=== PATIENT | female | born 1945 | race Caucasian/White ===

== ENCOUNTER → 2023-08-23 | Outpatient (CLI) | payer MEDICARE, OTHER, SELFPAY ==
[2023-08-23 12:21] LABS: Absolute Lymphocyte Count 1.39 X10^3/uL (0.83-4.51); Absolute Neutrophil Count 2.4 X10^3/uL (2.0-7.7); Basophil# 0.03 X10^3/uL; Basophil% 0.7 % (0-1); Eosinophils% 4.6 % (0-5); Hematocrit 35.5 % (37-47); Hemoglobin 11.7 g/dL (12.0-15.0); Lymphocyte # 1.39 X10^3/ul (0.83-4.51); Lymphocyte % 31.9 % (19-41); Mean Corpuscular Hgb 29.5 pg (27.0-32.0); Mean Corpuscular Volume 89.6 fL (81-99); Mean Platelet Vol. 10.3 fl (6.2-12.0); Monocyte% 6.9 % (0-10); NRBC Flagged by Analyzer 0 % (0-5); Neutrophil # 2.43 X10^3/uL (2.7-7.7); Neutrophil % 55.7 % (47-70); Platelet Count 215 K/mm3 (150-450); RBC Distribution Width CV 12.8 % (11.6-14.6); RBC Distribution Width SD 42.3 fl (35.1-43.9); Red Blood Count 3.96 M/mm3 (4.2-5.4); White Blood Count 4.4 K/mm3 (4.4-11.0)
[2023-08-23 12:56] LABS: Vitamin D,25 Hydroxy 28.3 ng/mL
[2023-08-23 13:08] LABS: ALB/GLOB Ratio 1.1 RATIO (0.9-2.4); AST(SGOT) 14 U/L (15-37); Alanine Aminotransfer ALT/SGPT 16 U/L (13-56); Albumin, Serum 3.7 g/dL (3.2-5.0); Alkaline Phosphatase 78 U/L (45-117); Anion Gap 9 (5-15); BUN 34 mg/dL (7-18); BUN/Creat Ratio 30.1 RATIO (10-20); Calcium,Total 9.4 mg/dL (8.5-10.1); Chloride 105 mmol/L (98-107); Cholesterol 194 mg/dL (200); Creatinine, Serum 1.13 mg/dL (0.55-1.02); EST Glomerular Filtration Rate 50 mL/min (>60); Est Glom Filt Rate - Afr Amer 60 mL/min (>60); Globulin 3.5 g/dL (2.2-4.2); Glucose 121 mg/dL (74-106); High Density Lipoprotein 77 mg/dL; Potassium 3.6 mmol/L (3.5-5.1); Protein, Total 7.2 g/dL (6.4-8.2); Sodium Level 139 mmol/L (136-145); T4 Free Direct 0.96 ng/dL (0.76-1.46); Thyroid Stim Hormone (TSH) 2.98 uIU/mL (0.358-3.74); Triglycerides 101 mg/dL; Very Low Density Lipoprotein 20 mg/dL (5-40)
== END | disposition home or self-care (01) ==
LOC: MFPLAB 10:46
PROVIDERS: Visit Provider Family Medicine
DX: I10 Essential (primary) hypertension (principal); E03.9 Hypothyroidism, unspecified; R73.03 Prediabetes; F41.1 Generalized anxiety disorder
CPT/HCPCS: 36415; 80053; 80061; 82306; 83036; 84439; 84443; 85025

== ENCOUNTER → 2023-12-20 | Outpatient (CLI) | payer MEDICARE, OTHER, SELFPAY ==
[2023-12-20 11:27] LABS: Vitamin D,25 Hydroxy 31.2 ng/mL
[2023-12-20 12:25] LABS: Hemoglobin A1c 6.2 % (3.8-5.6)
== END | disposition home or self-care (01) ==
LOC: MFPLAB 08:39
PROVIDERS: PCP Family Medicine; Visit Provider Family Medicine
DX: E03.9 Hypothyroidism, unspecified (principal); E55.9 Vitamin D deficiency, unspecified; R73.03 Prediabetes
CPT/HCPCS: 36415; 82306; 83036; 84443

== ENCOUNTER → 2023-12-27 | Outpatient (CLI) | payer MEDICARE, OTHER, SELFPAY ==
--- NOTE | 2023-12-27 12:56 | US_ITS ---
INDICATION: NODULE EXAMINATION: Ultrasound US Thyroid (eg thyroid, parathyroid, parotid) TECHNIQUE: Chandler scale and color doppler imaging was performed of the thyroid gland. TIRADS criteria was utilized. COMPARISON: None. FINDINGS: RIGHT THYROID LOBE: Status post right hemithyroidectomy. LEFT THYROID LOBE: 4.1 x 1.3 x 1.9 cm with a volume of 5.2 mL Homogeneous echotexture. Normal vascularity. 3 mm nodule which is solid, hypoechoic, wider than tall with smooth margins and no echogenic foci. ISTHMUS: 3 mm Homogeneous echotexture. Normal vascularity. No thyroid nodules. US/Thyroid IMPRESSION: 3 mm TIRADS 4 nodule in the left lobe with no follow-up recommended. Electronically Signed: Bryant York DO at 23:29 EDT ,
== END | disposition home or self-care (01) ==
LOC: US 12:53
PROVIDERS: PCP Family Medicine; Referring Provider Family Medicine; Visit Provider Family Medicine
DX: E04.1 Nontoxic single thyroid nodule (principal)
CPT/HCPCS: 76536

== ENCOUNTER → 2024-03-30 | Outpatient (CLI) | payer MEDICARE, OTHER, SELFPAY ==
[2024-03-30 16:21] LABS: Vitamin D,25 Hydroxy 42.9 ng/mL
== END | disposition home or self-care (01) ==
LOC: MFPLAB 11:28
PROVIDERS: PCP Family Medicine; Referring Provider Family Medicine; Visit Provider Family Medicine
DX: E55.9 Vitamin D deficiency, unspecified (principal); R73.03 Prediabetes; E03.9 Hypothyroidism, unspecified
CPT/HCPCS: 36415; 82306; 83036; 84443

== ENCOUNTER → 2024-04-13 | Outpatient (CLI) | payer MEDICARE, OTHER, SELFPAY ==
--- NOTE | 2024-04-13 12:47 | BI_ITS ---
PROCEDURE: SCRN MAMM (CAD)W/ROBBIN BILAT REASON FOR EXAM: F, Age 78 y/o, personal history of breast cancer. Prior right breast lumpectomy and post radiation. Prior left breast biopsies. TECHNIQUE: Bilateral screening digital breast tomosynthesis with 2D and 3D images. Computer aided detection. COMPARISON: Prior exam(s) dating back to outside examination dated April 11, 2023.. FINDINGS: The breasts are heterogeneously dense which may obscure small masses. Stable focal area of architectural distortion in the upper central portion of the right breast in keeping with prior right lumpectomy and radiation. No suspicious masses, areas of developing architectural distortion, or suspicious calcifications. Stable examination. BI/SCRN MAMM (CAD)W/ROBBIN BILAT IMPRESSION: BI-RADS 2: BENIGN. RECOMMEND ANNUAL MAMMOGRAPHIC SCREENING. Follow-up code: Routine Follow-up The patient will be notified of the results by letter. Reading Location: [place] [id number]
== END | disposition home or self-care (01) ==
LOC: OPBI 12:46
PROVIDERS: PCP Family Medicine; Referring Provider Family Medicine; Visit Provider Family Medicine
DX: Z12.31 Encounter for screening mammogram for malignant neoplasm of breast (principal)
CPT/HCPCS: 77063; 77067

== ENCOUNTER → 2024-09-02 | Outpatient (CLI) | payer MEDICARE, OTHER, SELFPAY ==
--- NOTE | 2024-09-02 13:25 | RAD_ITS ---
PROCEDURE: FINGER(S) MIN 2 VIEWS 09/02/2024 REASON FOR EXAM: FINGER INJURY TECHNIQUE: 3 view(s) of the right 2nd finger COMPARISON: None. RAD/Finger(s) Min 2 Views IMPRESSION: No radiopaque foreign body is seen. A distal tuft fracture, minimally displaced, is seen in the right 2nd distal ph alanx. Moderate degenerative changes of the right 2nd proximal interphalangeal joint, and mild degenerative changes of the right 2nd distal interphalangeal joint is noted. Reading Location: [address]
== END | disposition home or self-care (01) ==
LOC: MTRAD 13:25
PROVIDERS: PCP Family Medicine; Referring Provider Physician Assistant; Visit Provider Physician Assistant
DX: S69.91XA Unspecified injury of right wrist, hand and finger(s), initial encounter (principal); X58.XXXA Exposure to other specified factors, initial encounter
CPT/HCPCS: 73140

== ENCOUNTER → 2024-09-17 | Outpatient (CLI) | payer MEDICARE, OTHER, SELFPAY ==
[2024-09-17 15:25] LABS: Absolute Lymphocyte Count 1.35 X10^3/uL (0.83-4.51); Absolute Neutrophil Count 2.5 X10^3/uL (2.0-7.7); Basophil# 0.03 X10^3/uL; Basophil% 0.7 % (0-1); Eosinophil# 0.09 X10^3/uL; Eosinophils% 2.1 % (0-5); Hematocrit 35.4 % (37-47); Hemoglobin 11.8 g/dL (12.0-15.0); Lymphocyte # 1.35 X10^3/ul (0.83-4.51); Lymphocyte % 31.5 % (19-41); Mean Corp Hgb Conc 33.3 g/dL (32-36); Mean Corpuscular Hgb 30.3 pg (27.0-32.0); Mean Platelet Vol. 11.1 fl (6.2-12.0); Monocyte# 0.29 X10^3/uL; Monocyte% 6.8 % (0-10); NRBC Flagged by Analyzer 0 % (0-5); Neutrophil # 2.51 X10^3/uL (2.7-7.7); Neutrophil % 58.7 % (47-70); Platelet Count 200 K/mm3 (150-450); RBC Distribution Width CV 12.1 % (11.6-14.6); RBC Distribution Width SD 40.1 fl (35.1-43.9); Red Blood Count 3.89 M/mm3 (4.2-5.4); White Blood Count 4.3 K/mm3 (4.4-11.0)
[2024-09-17 15:50] LABS: Hemoglobin A1c 5.3 % (<=5.6)
[2024-09-17 16:12] LABS: ALB/GLOB Ratio 1.8 RATIO (0.9-2.4); AST(SGOT) 22 U/L (<=31); Alanine Aminotransfer ALT/SGPT 14 U/L (<=34); Albumin, Serum 4.3 g/dL (3.4-4.8); Alkaline Phosphatase 68 U/L (35-104); Anion Gap 13 (5-15); BUN 33 mg/dL (4-19); BUN/Creat Ratio 28.7 RATIO (10-20); Calcium,Total 9.9 mg/dL (7.6-11.0); Carbon Dioxide 23.4 mmol/L (21.0-32.0); Chloride 105 mmol/L (98-108); Cholesterol 161 mg/dL (<=200); Creatinine, Serum 1.14 mg/dL (0.70-1.20); EST Glomerular Filtration Rate 49 (>60); Globulin 2.4 g/dL (2.2-4.2); Glucose 88 mg/dL (70-99); High Density Lipoprotein 69 mg/dL; Low Density Lipoprotein Calc. 74 mg/dL; Potassium 3.9 mmol/L (3.3-5.1); Protein, Total 6.7 g/dL (5.9-8.4); Sodium Level 141 mmol/L (133-145); Thyroid Stim Hormone (TSH) 0.431 uIU/mL (0.300-4.200); Total Bilirubin 0.55 mg/dL (0.00-1.30); Triglycerides 86 mg/dL; Very Low Density Lipoprotein 17 mg/dL (5-40); Vitamin D,25 Hydroxy 71.9 ng/mL (30-100); cholesterol:hdl ratio screen 2.32
--- OUTSIDE RECORDS SUMMARY | 2024-09-17 21:31 | XMS RPT_ITS | CCD ---
Author Organization [facility] Care Team Providers Care Tap Dancer Name Role Phone Tio Perez MD Primary Care Provider CHRIS, TIO RADHA Primary Care Unavailable ANG ADAMES A Attending Unavailable ANG ADAMES Admitting Unavailable MIKULA, TIO P Primary Care Unavailable POZUELO, JUSTIN M Referring Unavailable MIKULA, TIO P Primary Care Unavailable MIKULA, TIO P Referring Unavailable POZUELO, JUSTIN M Attending Unavailable POZUELO, JUSTIN M Referring Unavailable MIKULA, TIO P Primary Care Unavailable MIKULA, TIO P Primary Care Unavailable POZUELO, JUSTIN M Attending Unavailable POZUELO, JUSTIN M Referring Unavailable MIKULA, TIO P Primary Care Unavailable POZUELO, JUSTIN M Referring Unavailable POZUELO, JUSTIN M Referring Unavailable MIKULA, TIO P Primary Care Unavailable POZUELO, JUSTIN M Attending Unavailable MIKULA, TIO P Primary Care Unavailable POZUELO, JUSTIN M Referring Unavailable MIKULA, TIO P Primary Care Unavailable POZUELO, JUSTIN M Referring Unavailable MIKULA, TIO P Primary Care Unavailable MIKULA, TIO P Primary Care Unavailable POZUELO, JUSTIN M Referring Unavailable Broula Tio WHITTAKER Primary Care Provider Marcos Garcia MD Primary Care Provider Marcos Garcia MD Referring Provider Rosas Reed Attending Provider Rosas Reed Referring Provider [phone] Melody Stewart Attending Provider [phone] Nick WHITTAKER, Dr. Anderson Attending Provider [phone] Jose, Chalon Primary Care Unavailable Melody Loya Attending Unavailable Jose, Chalon Referring Unavailable Justin Romero Attending Unavailable Jose, Chalon Primary Care Unavailable Jose, Chalon Referring Unavailable Jose, Chalon Primary Care Unavailable Melody Loya Attending Unavailable Jose, Chalon Referring Unavailable WyRosas Kowalski Attending Unavailable Jose, Chalon Primary Care Unavailable Jose, Chalon Referring Unavailable Jose, Chalon Primary Care Unavailable Jose, Chalon Attending Unavailable Jose, Chalon Referring Unavailable Jose, Chalon Primary Care Unavailable Jose, Chalon Attending Unavailable Rosas Reed Attending Unavailable Rosas Reed Referring Unavailable Jose, Chalon Primary Care Unavailable Jose, Chalon Primary Care Unavailable Jose, Chalon Attending Unavailable Jose, Chalon Attending Unavailable Jose, Chalon Referring Unavailable Jose, Chalon Primary Care Unavailable Allergies Allergy Classification Reported Allergen(s) Allergy Type Date of Onset Reaction(s) Facility (10 sources) Morphine; Translations: [MORPHINE] Drug Allergy 9 Swelling, Hives [facility] (4 sources) oxyCODONE; Translations: [OXYCODONE] Drug Allergy 0 Other: See Comments [facility] Work Phone: (2 sources) Penicillins; Translations: [PENICILLINS] Propensity to adverse reactions 9 [facility] Work Phone: (4 sources) Propoxyphene; Translations: [PROPOXYPHENE] Drug Allergy 9 [facility] Work Phone: (6 sources) Amoxicillin Drug Allergy 9 [facility] (2 sources) Penicillins Propensity to adverse reactions 9 [facility] Work Phone: (1 source) Amoxicillin Drug Allergy 5 [facility] (1 source) Morphine Drug Allergy 5 [facility] Medications Current Medications Medication Drug Class(es) Dates Sig (Normalized) Sig (Original) aspirin 81 mg oral tablet (1 source) Platelet Aggregation Inhibitor, Nonsteroidal Anti-inflammatory Drug take 2 tablets by mouth once daily in the morning aspirin 81 MG tablet Indications: 2 tablets daily Take 81 mg by mouth in the morning. Indications: 2 tablets daily. Told not to stop. 0 Active cephalexin 500 mg oral capsule (3 sources) Cephalosporin Antibacterial Start: 5 take 1 capsule by mouth three times daily Cephalexin 500 mg capsule Active 500 mg PO THREE TIMES A DAY September 03, 2024 12:00am ergocalciferol 1.25 mg oral capsule (5 sources) Provitamin D2 Compound Start: Ergocalciferol (Vitamin D2) 1,250 mcg (50,000 unit) capsule Active 1250 ug PO EVERY WEEK September 02, 2024 12:00am hydroCHLOROthiazide 12.5 mg / lisinopril 20 mg oral tablet (9 sources) Thiazide Diuretic, Angiotensin Converting Enzyme Inhibitor Start: Lisinopril-Hydroch lorothiazide 20-12.5 mg tablet Active 2 {tbl} PO daily September 02, 2024 12:00am take 2 tablets by mo uth once daily lisinopril-hydrochlorothiazide (PRINZIDE ,ZESTORETIC) 20-12.5 mg per tablet Take 2 tablets by mouth once daily. 0 Active Comment on above: Take 2 tablets by mo uth once daily. levothyroxine sodium 0.088 mg oral tablet (9 sources) l-Thyroxine Start: 5 take 1 tablet by mouth once daily Levothyroxine 88 mcg tablet Active 88 ug PO daily September 02, 2024 12:00am take 1 capsule by mouth once tate ly Levothyroxine 75 mcg cap Take 75 mcg by mouth once daily. 0 Active take 1 tablet by mouth once malena y levothyroxine (SYNTHROID) 75 MCG tablet Take 75 mcg by mouth Daily 0 Active Comment on above: Take 75 mcg by mouth once daily. meloxicam 7.5 mg oral tablet (5 sources) Nonsteroidal Anti-inflammatory Drug Start: 5 take 1 tablet by mouth once daily as needed for pain Meloxicam 7.5 mg tablet Active 7.5 mg PO daily as needed for pain September 02, 2024 12:00am Multivitamin tablet (4 sources) Start: 5 Multivitamin tablet Active 1 {tbl} PO EVERY MORNING September 03, 2024 12:00am rosuvastatin calcium 5 mg oral tablet (5 sources) HMG-CoA Reductase Inhibitor Start: 5 take 1 tablet by mouth once daily Rosuvastatin 5 mg tablet Active 5 mg PO daily September 02, 2024 12:00am Semaglutide 0.5 mg/0.1 mL syringe (5 sources) Start: 5 Semaglutide 0.5 mg/0.1 mL syringe Active mg SC September 02, 2024 12:00am sertraline 100 mg oral tablet (9 sources) Serotonin Reuptake Inhibitor Start: 5 take 1 tablet by mouth once daily Sertraline 100 mg tablet Active 100 mg PO daily September 02, 2024 12:00am take 1 tablet by mouth once malena y sertraline (ZOLOFT) 100 mg tablet Take 100 mg by mouth once daily. 0 Active Comment on above: Take 100 mg by mouth once daily. 1000 ml sodium chloride 9 mg/ml injection (2 sources) Start: 10-26-2021 0.9 % sodium chloride infusion Start: 10-26-2021 sodium chlorid e flush 0.9 % injection 5-40 mL Completed/Discontinued Medications Medication Drug Class(es) Dates Sig (Normalized) Sig (Original) acetaminophen 500 mg oral tablet (3 sources) Start: 9 take 2 tablets by mouth every eight hours acetaminophen (TYLENOL) 500 mg tablet Take 2 tablets by mouth every 8 hours. Do not exceed more than 3000 mg of Tylenol per 24 hour period 180 tablet 0 12/17/2018 Active Comment on above: Take 2 tablets by mo [facility] every 8 hours. Do not exceed more than 3000 mg of Tylenol per 24 hour period ascorbic acid 500 mg oral tablet (3 sources) Vitamin C Start: 9 take 1 tablet by mouth twice daily at mealtime ascorbic acid, vitamin C, (VITAMIN C) 500 mg tablet Take 1 tablet by mouth twice daily with meals. 0 12/17/2018 Active Comment on above: Take 1 tablet by mara twice daily with meals. atorvastatin 10 mg oral tablet (4 sources) HMG-CoA Reductase Inhibitor take 1 tablet by mouth once daily in the evening atorvastatin (LIPITOR) 10 mg tablet Take 10 mg by mouth once daily. PM 0 Active Comment on above: Take 10 mg by mouth once daily. PM cholecalciferol, vitamin D3, (VITAMIN D3 ORAL) (3 sources) cholecalciferol, vitamin D3, (VITAMIN D3 ORAL) Take by mouth. 0 Active Comment on above: Take by mouth. metFORMIN hydrochloride 500 mg oral tablet (4 sources) Biguanide take 1 tablet by mouth once daily at breakfast metFORMIN (GLUCOPHAGE) 500 mg tablet Take 500 mg by mouth daily with breakfast. 0 Active Comment on above: Take 500 mg by mouth daily with breakfast. methylPREDNISolone (1 source) Corticosteroid Start: 9 End: 2 methylPREDNISolone (MEDROL, ANGELIC,) 4 MG tablet Indications: Hand sprain, left, initial encounter Take as directed. 1 kit 0 09/07/2018 10/25/2021 Discontinued (LIST CLEANUP) predniSONE (3 sources) PREDNISONE ORAL Take by mouth. tapering dose 0 Active Comment on above: Take by mouth. taper ing dose topiramate 25 mg oral tablet (5 sources) Start: 5 End: 5 take 1 tablet by mouth twice daily Topiramate 25 mg tablet Discontinued 25 mg PO TWICE A DAY September 02, 2024 12:00am September 03, 2024 9:34am Problems Active Problems Problem Classification Problem Date Documented Date Episodic/Chronic Complications of surgical procedures or medical care (3 sources) Postoperative hypothyroidism; Translations: [Postprocedural hypothyroidism] Onset: 12-10-2018 12-10-2018 Chronic Deficiency and other anemia (1 source) Anemia due to blood loss; Translations: [Iron deficiency anemia secondary to blood loss (chronic)] Chronic Diabetes mellitus without complication (3 sources) Diabetes mellitus; Translations: [Type 2 diabetes mellitus without complications] Onset: 01-29-2020 01-29-2020 Chronic Diverticulosis and diverticulitis (1 source) Diverticulitis; Translations: [Diverticulitis of intestine, part unspecified, without perforation or abscess without bleeding] Chronic Esophageal disorders (3 sources) Gastroesophageal reflux disease without esophagitis; Translations: [Gastro-esophageal reflux disease without esophagitis] Onset: 12-10-2018 12-10-2018 Chronic Essential hypertension (8 sources) Essential hypertension; Translations: [Essential (primary) hypertension] Onset: 12-10-2018 12-10-2018 Chronic Fracture of upper limb (15 sources) Displaced fracture of distal phalanx of right index finger, initial encounter for closed fracture; Translations: [Fracture of distal phalanx of right index finger] Onset: 09-03-2024 09-02-2024 Episodic Mood disorders (3 sources) Depressive disorder; Translations: [Depression] Onset: 12-10-2018 12-10-2018 Chronic Nutritional deficiencies (1 source) Vitamin D deficiency, unspecified; Translations: [Vitamin D deficiency, unspecified] Onset: 04-23-2024 Chronic Other connective tissue disease (1 source) Presence of unspecified artificial knee joint; Translations: [Artificial knee joint present, unspecified laterality] Onset: 12-14-2021 Chronic Other injuries and conditions due to external causes (1 source) Unspecified injury of right wrist, hand and finger(s), initial encounter; Translations: [Unspecified injury of right wrist, hand and finger(s), initial encounter] Onset: 09-09-2024 Episodic Other injuries and conditions due to external causes (1 source) Unspecified injury of unspecified wrist, hand and finger(s), initial encounter; Translations: [Unspecified injury of unspecified wrist, hand and finger(s), initial encounter] Onset: 09-03-2024 Episodic Other lower respiratory disease (1 source) Multiple nodules of lung; Translations: [Other nonspecific abnormal finding of lung field] Episodic Other non-traumatic joint disorders (5 sources) Pain in unspecified knee; Translations: [Knee pain] 09-02-2024 Episodic Residual codes; unclassified (1 source) Non-smoker; Translations: [Other specified health status] Episodic Superficial injury; contusion (7 sources) Subungual hematoma, hand; Translations: [Contusion of unspecified finger with damage to nail, initial encounter] Onset: 09-10-2024 09-03-2024 Episodic Thyroid disorders (2 sources) Nontoxic single thyroid nodule; Translations: [Hypothyroidism, unspecified] Onset: 01-17-2024 Chronic Unclassified (5 sources) S62.630A - Displaced fracture of distal phalanx of right index finger, initial encounter for closed fracture Viral infection (1 source) Disease caused by 2019-nCoV; Translations: [COVID-19] Episodic Viral infection (1 source) COVID-19; Translations: [COVID-19] Onset: 03-30-2021 Past or Other Problems Problem Classification Problem Date Documented Date Episodic/Chronic Cancer of breast (3 sources) History of malignant neoplasm of breast; Translations: [Personal history of malignant neoplasm of breast] Onset: 12-10-2018 12-10-2018 Episodic Nausea and vomiting (3 sources) Postoperative nausea and vomiting; Translations: [Nausea with vomiting, unspecified] Onset: 12-10-2018 12-10-2018 Episodic Other connective tissue disease (3 sources) Impingement syndrome of right shoulder region; Translations: [Impingement syndrome of right shoulder] Onset: 2019 02-08-2020 Episodic Other connective tissue disease (3 sources) Tear of right rotator cuff; Translations: [Unspecified rotator cuff tear or rupture of right shoulder, not specified as traumatic] Onset: 01-29-2020 01-29-2020 Episodic Other lower respiratory disease (1 source) Cough; Translations: [Cough] Onset: 03-30-2021 Episodic Other lower respiratory disease (1 source) Shortness of breath; Translations: [Shortness of breath] Onset: 03-30-2021 Episodic Other screening for suspected conditions (not mental disorders or infectious disease) (1 source) Encounter for screening mammogram for malignant neoplasm of breast; Translations: [Encounter for screening mammogram for malignant neoplasm of breast] Onset: 05-01-2024 Episodic Results Test Name Value Interpretation Reference Range Facility Finger(s) Min 2 Viewson 08-23 Finger(s) Min 2 Views [facility] Imaging Services [address] [place] [address] Finger(s) Min 2 Views MR#: [id number] Acct: [id number] Name: TYESHAROJELIO TIBURCIO Rep #: [id number] : 1945 F 78 From: Rukhsana busby MD PCP: Dr. Marcos Garcia MD Status: DEP AMB Study: Finger(s) Min 2 Views Date of Exam: 09/10/24 Exam# [id number] Ordering Dr: Melody Loya [employer] PROCEDURE: FINGER(S) MIN 2 VIEWS 09/10/2024 REASON FOR EXAM: FX F/U TECHNIQUE: FINGER(S) MIN 2 VIEWS COMPARISON: 09/02/2024. FINDINGS: No significant callus formation is identified at the level of the fracture line in the distal phalanx of the 2nd finger. Benign chronic calcification adjacent to the proximal interphalangeal joint, unchanged. Mild osteopenia of the visualized bones. Degenerative joint disease. No other fracture or dislocation is seen. No lytic or blastic bone lesion is noted. RAD/Finger(s) Min 2 Views IMPRESSION: No significant callus formation is identified at the level of the fracture line in the distal phalanx of the 2nd finger. Benign chronic calcification adjacent to the proximal interphalangeal joint, unchanged. Reading Location: [place] [address] CC: ALINE Loya; Dr. Marcos Garcia MD Mol[employer] Mixer: Signed Normal [facility] Orthopedic Visit Reporton Orthopedic Visit Report [facility] [address] [place] [address] OFFICE VISIT Date of Service: 09/10/24 MR#: [id number] Acct: [id number] Name: ROJELIO ARAMBULA Rep #: [id number] : 1945 Provider: ALINE weems Age/Sex: 78/F Location: [facility] Status: Signed Intake Vital Signs 09/03/24 09:32 09/10/24 10:23 Height 5 ft 1 in 5 ft 1 in Weight: 137 lb BMI 25.9 Intake Visit Reasons: RIGHT HAND Chief Complaint: right hand index finger Accompanied by: Self Is patient in pain?: No Allergies amoxicillin Allergy (Mild, Verified 09/10/24 10:27) Rash morphine Allergy (Mild, Verified 09/10/24 10:27) Rash Medications ???Medication ???Instructions ???Recorded ???Confirmed ???Type ergocalciferol (vitamin D2) 1,250 1,250 mcg PO QWEEK 09/02/2409/10 History mcg (50,000 unit) capsule levothyroxine 88 mcg tablet 88 mcg PO QDAY 09/02/24 09/10/24 H istory lisinopril 20 2 tab PO QDAY 09/02/24 09/10/24 Hi story mg-hydrochlorothiazide 12.5 mg tablet meloxicam 7.5 mg tablet 7.5 mg PO QDAY PRN pain 09/02/24 0 09/03/24 History rosuvastatin 5 mg tablet 5 mg PO QDAY 09/02/24 09/10/24 His tory semaglutide 0.5 mg/0.1 mL mg subcut 09/02/24 09/10/24 Histor y subcutaneous syringe sertraline 100 mg tablet 100 mg PO QDAY 09/02/24 09/10/24 H istory cephalexin 500 mg capsule 500 mg PO TID #15 caps 09/03/24 Rx multivitamin 1 tab PO QAM 09/03/24 09/10/24 His tory Have you fallen in the past year?: No PFSH Medical History Fracture of distal phalanx of right index finger History of right breast cancer Knee pain HTN (hypertension) Surgical History History of bilateral knee replacement History of lumpectomy of right breast History of hysterectomy History of thyroid surgery Social History Smoking Status: Never smoker alcohol intake: never substance use type: does not use HPI RIGHT HAND Details: This documentation accurately reflects the service provided and the decisions made by me, ALINE Sethi 09/10/24 1022. Part of today???s visit was documented by Edison Dowling MA, acting as scribe. ROJELIO ARAMBULA is a 78 year old F here today for a followup on her finger fracture. DOI: 09/02/24. Patient states that she thinks that her finger is doing a lot better. She states that she likes wearing the finger splint for comfort. Patient states when she moves her finger sometimes it will get tender. Agree with above. Rojelio is a pleasant 78-year-old female for follow-up right index finger fracture. Patient completed antibiotic with no issues, states much less pressure after trephination at last appointment. Patient did soak for the first few days with no concerns for infection. Patient purchased an [facility] finger splint that gives good support and fit that she wears with all activity, removes as needed for hand hygiene. Using ice and Tylenol for symptom control. Painful if she bumps it. ROS Const All systems reviewed are unremarkable except as noted in H and other (A O x 3, no apparent distress. No recent illness.) ENT Denies dizziness Card Denies chest pain, Denies dyspnea, Denies edema and Reports other (No palpitations) Resp Denies cough, Denies dyspnea and Reports other (No recent URI) GI Reports system reviewed and no additional complaints, except as documented, Denies nausea and Denies vomiting Musc Reports as per HPI and Reports arthralgias Neuro No dizziness Psych Reports system reviewed and no additional complaints, except as documented Sancho/Lymph Denies easy bleeding and Denies easy bruising Ortho Exam Right Wrist/Hand Date of injury: 09/02/24 WRIST: R index finger: Skin is pink, warm, dry and intact. There is moderate and improving bruising to the distal phalanx and subungual hematoma resolved with ecchymosis remaining under the nail. Skin is easily compressible and minimally tender; distal sensory is intact. Positive pain with palpation to the distal phalanx There is no pain over the DIP, PIP or MCP joints. Good range of motion at the MCP and PIP joint, ROM at DIP of 0 to 20 degrees with symptom aggravation. Distal cap refill brisk at 2 seconds. Supplemental Info Independent review of finger x-rays compared to initial films. Continues to be a distal phalanx fracture with no displacement, no callus formation at this time. Await radiology report. Coding Level of Care Code Off vis,est,level 3 Diagnoses Fracture of distal phalanx of right index finger S62.630A Encounter type: subsequent encounter Fracture type: closed Fracture (more content not included)... Normal [facility] Orthopedic Visit Reporton Orthopedic Visit Report [facility] [address] [place] [id number] OFFICE VISIT Date of Service: 09/03/24 MR#: [id number] Acct: [id number] Name: ROJELIO ARAMBULA Rep #: [id number] : 1945 Provider: ALINE weems Age/Sex: 78/F Location: [facility] Status: Signed Intake Vital Signs 09/02/24 13:34 09/03/24 09:32 Height 5 ft 1 in 5 ft 1 in Weight: 140 lb BMI 26.4 Intake Visit Reasons: RIGHT HAND/FIRST FINGER Chief Complaint: right index finger Accompanied by: Self Is patient in pain?: Yes Pain scale (1-10): 6 Allergies amoxicillin Allergy (Mild, Verified 09/03/24 09:33) Rash morphine Allergy (Mild, Verified 09/03/24 09:33) Rash Medications ???Medication ???Instructions ???Recorded ???Confirmed ???Type ergocalciferol (vitamin D2) 1,250 1,250 mcg PO QWEEK 09/02/2409/03 History mcg (50,000 unit) capsule levothyroxine 88 mcg tablet 88 mcg PO QDAY 09/02/24 09/03/24 H istory lisinopril 20 2 tab PO QDAY 09/02/24 09/03/24 Hi story mg-hydrochlorothiazide 12.5 mg tablet meloxicam 7.5 mg tablet 7.5 mg PO QDAY PRN pain 09/02/24 0 09/03/24 History rosuvastatin 5 mg tablet 5 mg PO QDAY 09/02/24 09/03/24 His tory semaglutide 0.5 mg/0.1 mL mg subcut 09/02/24 09/03/24 Histor y subcutaneous syringe sertraline 100 mg tablet 100 mg PO QDAY 09/02/24 09/03/24 H istory cephalexin 500 mg capsule 500 mg PO TID #15 caps 09/03/24 Rx multivitamin 1 tab PO QAM 09/03/24 09/03/24 His tory Have you fallen in the past year?: Yes PFSH Medical History Fracture of distal phalanx of right index finger History of right breast cancer Knee pain HTN (hypertension) Surgical History History of bilateral knee replacement History of lumpectomy of right breast History of hysterectomy History of thyroid surgery Social History Smoking Status: Never smoker alcohol intake: never substance use type: does not use HPI RIGHT HAND/FIRST FINGER Details: This documentation accurately reflects the service provided and the decisions made by me, ALINE Sethi 09/03/24 7383. Part of today???s visit was documented by Elizabeth Roque ATC, acting as scribe. ROJELIO ARAMBULA is a 78 year old F here today for right index finger [facility] referral. Patient states this injury happened yesterday and she was sitting in a lawn chair and got the finger stuck in it and sat on the chair with the finger stuck in the chair. Patient is RHD. She does have a finger splint on today. [facility] placed her in a splint yesterday but it kept falling off so she bought her own and has been wearing that since. She states she does have some mild numbness/tingling in the finger. She has been taking Tylenol for the pain. She denies any prior injury. Agree with above. Rojelio is a pleasant 78-year-old here for 1 day follow-up from [facility] for a distal right index finger fracture. Patient states that was trapped in a lawn chair with immediate pain and swelling. Patient has been keeping the finger immobilized with OTC brace and p.o. Tylenol for symptom control and is tolerating well. Patient states it is tight and swollen. Patient typically has on artificial nails, however she did soak off this nail so she can monitor skin and color after this injury. No prior injuries to this hand, patient is right-hand dominant. ROS Const All systems reviewed are unremarkable except as noted in H and other (A O x 3, no apparent distress. No recent illness.) ENT Denies dizziness Card Denies chest pain, Denies dyspnea, Denies edema and Reports other (No palpitations) Resp Denies cough, Denies dyspnea and Reports other (No recent URI) GI Reports system reviewed and no additional complaints, except as documented, Denies nausea and Denies vomiting Musc Reports as per HPI and Reports arthralgias Neuro No dizziness Psych Reports system reviewed and no additional complaints, except as documented Sancho/Lymph Denies easy bleeding and Denies easy bruising Ortho Exam Right Wrist/Hand Date of injury: 09/02/24 WRIST: R index finger: Skin is pink, warm, dry and intact. There is moderate bruising to the distal phalanx and approximately 70% subungual hematoma present. Skin is tight and painful with palpation. Distal sensory is intact, but blunted. There is no pain over the DIP, PIP or MCP joints. Good range of motion at the MCP and PIP joint, ROM at DIP of 0 to 20 degrees with symptom aggravation. Distal cap refill at 2 seconds. It is noted, patient has removed her artificial nail off the index finger as well as majority of adhesive. Supplemental Info (more content not included)... Normal [facility] Finger(s) Min 2 Viewson 08-23 Finger(s) Min 2 Views [facility] Imaging Services [address] [place], [place] [address] Finger(s) Min 2 Views MR#: [id number] Acct: [id number] Name: ROJELIO ARAMBULA Rep #: [id number] : 1945 F 78 From: Dennis Zamorano PCP: Dr. Marcos Garcia MD Status: REG CLI Study: Finger(s) Min 2 Views Date of Exam: 09/02/24 Exam# [id number] Ordering Dr: Rosas Pool PROCEDURE: FINGER(S) MIN 2 VIEWS 09/02/2024 REASON FOR EXAM: FINGER INJURY TECHNIQUE: 3 view(s) of the right 2nd finger COMPARISON: None. RAD/Finger(s) Min 2 Views IMPRESSION: No radiopaque foreign body is seen. A distal tuft fracture, minimally displaced, is seen in the right 2nd distal phalanx. Moderate degenerative changes of the right 2nd proximal interphalangeal joint, and mild degenerative changes of the right 2nd distal interphalangeal joint is noted. Reading Location: [address] CC: Dr. Marcos Garcia MD; RADHA Tomlinson Molasses Feed Mixer: Signed Normal [facility] Urgent Care Visit Reporton 0 09-02-2024 Urgent Care Visit Report [facility] [address], [address] [place] [address] OFFICE VISIT Date of Service: 09/02/24 MR#: [id number] Acct: [id number] Name: ROJELIO ARAMBULA Rep #: [id number] : 1945 Provider: RADHA Tomlinson Age/Sex: 78/F Location: [facility] Status: Signed Intake Vital Signs 09/02/24 13:34 Height 5 ft 1 in Weight: 136 lb BMI 25.7 BP 120/66 Blood Pressure Location Lt brachial Position Sitting Respiration 15 Pulse 84 Pulse Source NIBP Temp 98.2 F Temp Source Oral Pulse Oximetry (%) 96 Oxygen Delivery Method room air Intake Visit Reasons: R HAND/INDEX FINGER/PAIN/INJURY Chief Complaint: right index finger 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 Is patient in pain?: Yes Allergies amoxicillin Allergy (Mild, Verified 09/02/24 13:35) Rash morphine Allergy (Mild, Verified 09/02/24 13:35) Rash Medications ???Medication ???Instructions ???Recorded ???Confirmed ???Type ergocalciferol (vitamin D2) 1,250 1,250 mcg PO QWEEK 09/02/2409/02 History mcg (50,000 unit) capsule levothyroxine 88 mcg tablet 88 mcg PO QDAY 09/02/24 09/02/24 H istory lisinopril 20 2 tab PO QDAY 09/02/24 09/02/24 Hi story mg-hydrochlorothiazide 12.5 mg tablet meloxicam 7.5 mg tablet 7.5 mg PO QDAY PRN pain 09/02/24 0 09/02/24 History rosuvastatin 5 mg tablet 5 mg PO QDAY 09/02/24 09/02/24 His tory semaglutide 0.5 mg/0.1 mL mg subcut 09/02/24 09/02/24 Histor y subcutaneous syringe sertraline 100 mg tablet 100 mg PO QDAY 09/02/24 09/02/24 H istory topiramate 25 mg tablet 25 mg PO BID 09/02/24 09/02/24 His tory Is last menstrual period known: No Post menopausal: Yes Patient : No Have you fallen in the past year?: No Nurse's Note: right index finger vs folding chair today. +swelling, +bruising, +pain to same. denies additional injuries. [facility] Medical History (Updated 09/02/24 @ 13:39 by Rosas GARCIA, PA) Fracture of distal phalanx of right index finger History of right breast cancer Knee pain HTN (hypertension) Surgical History (Updated 09/02/24 @ 13:37 by Candy Benjamin) History of bilateral knee replacement History of lumpectomy of right breast History of hysterectomy History of thyroid surgery Social History (Updated 09/02/24 @ 13:37 by Candy Benjamin) Smoking Status: Never smoker alcohol intake: never substance use type: does not use HPI HPI Chief Complaint: right index finger Details: ROJELIO ARAMBULA, is a 78 F who presents to the office today for initial evaluation status post right index finger DP pain after suffering a crush injury from same from folding chair. Localized pain and ecchymosis to the volar pad appreciated with pain aggravated touch and range of motion at DIPJ, alleviated minimally with isolation. PMH NC. Vkgro-hihw-mpqeykvv. No ifbk-jjq-bqnhkio products diagnosis. No other associated symptoms and no other alleviating/aggravating factors. ROS Const Constitutional: No other (As above) Exam Const General: cooperative, healthy appearing and no acute distress Orientation: alert and awake Resp Effort Inspection: normal respiratory effort and able to speak in complete sentences Cardio Rate: regular rate Pulses: radial pulses present Skin General: no rashes or lesions noted Neuro General: patient alert and patient awake Cognition: normal cognition Speech: speech normal Extrem General: normal to inspection Psych Appearance: grossly normal Mental Status: mental status grossly normal Mood: congruent mood Affect: normal affect Speech and Movement: speech and movement normal Attitude: cooperative Coding Level of Care Code Off vis,new,level 4 Diagnoses Fracture of distal phalanx of right index finger S62.630A Assessment and Plan Assessment and Plan (1) Fracture of distal phalanx of right index finger: Status: Acute Plan: Right index finger radiographs reveal tuft fracture minimally displaced closed per my review, pending radiologist interpretation at time of patient discharge. Aluminum finger splint with Coban applied. Supportive measures as instructed today. Orthopedic referral to [facility]. Follow-up with the [facility] on an as-needed basis only. Patient states acknowledging understanding all the above. This note was generated with [employer] software. It may contain incorrect words, spelling, and punctuation that were not noted in checking the note before signing. Orders: Orders Finger(s) Min 2 Views Today S69.90XA - Unspecified injury of unspecified wrist, hand and finger(s), initial encounter Referrals Orthopedics S62.630A - Displaced fracture of distal phalanx of right index finger, initial encounter for closed fracture Clinical Quality (more content not included)... Normal [facility] SCRN MAMM (CAD)W/ROBBIN BILATo n 04-13-2024 SCRN MAMM (CAD)W/ROBBIN BILAT [facility] Imaging Services [address] [place] [address] SCRN MAMM (CAD)W/ROBBIN BILAT MR#: [id number] Acct: [id number] Name: ROJELIO ARAMBULA Rep #: [id number] : 1945 F 78 From: Rafi baca MD PCP: Dr. Marcos Garcia MD Status: [facility] Study: SCRN MAMM (CAD)W/ROBBIN BILAT Date of Exam: 03/26 Exam# [id number] Ordering Dr: Marcos Garcia MD PROCEDURE: SCRN MAMM (CAD)W/ROBBIN BILAT REASON FOR EXAM: F, Age 78 y/o, personal history of breast cancer. Prior right breast lumpectomy and post radiation. Prior left breast biopsies. TECHNIQUE: Bilateral screening digital breast tomosynthesis with 2D and 3D images. Computer aided detection. COMPARISON: Prior exam(s) dating back to outside examination dated April 11, 2023.. FINDINGS: The breasts are heterogeneously dense which may obscure small masses. Stable focal area of architectural distortion in the upper central portion of the right breast in keeping with prior right lumpectomy and radiation. No suspicious masses, areas of developing architectural distortion, or suspicious calcifications. Stable examination. BI/SCRN MAMM (CAD)W/ROBBIN BILAT IMPRESSION: BI-RADS 2: BENIGN. RECOMMEND ANNUAL MAMMOGRAPHIC SCREENING. Follow-up code: Routine Follow-up The patient will be notified of the results by letter. Reading Location: [place] [address] CC: Dr. Marcos Garcia MD Molasses Feed Mixer: Signed Normal [facility] Hemoglobin A1con 03-30-2024 HbA1c (Bld) [Mass fraction] 6.0 % High 3.8-5.6 [facility] Comment on above: Order Comment: Order Date: 03/30/24 Order Info: [id number] - A1C Result Comment: Norm al < 5.7 % Prediabetic 5.7 - 6.4 % Diabetic >or= 6.5 % Please note range changes. Performed By: #### L 501.9985, L501.9520, L506.1000 #### [facility] [address] [place], [place], [id number] Thyroid Stim Hormone (TSH)on 03-30-2024 TSH 1.250 uIU/mL Normal 0.358-3.740 [facility] Comment on above: Order Comment: Order Date: 03/30/24 Order Info: [id number] - TSH Performed By: #### L 501.9985, L501.9520, L506.1000 #### [facility] [address] [place], [place], [id number] Vitamin D,25 Hydroxyon 03-30 Vitamin D 25-OH 42.9 ng/mL Normal [facility] Comment on above: Order Comment: Order Date: 03/30/24 Order Info: [id number] - VITD25 Result Comment: Veena min D 25(OH) Status Range Deficiency <20 ng/mL (50nmol/L) Insufficiency 20 - 30 ng/mL (50 - 75 nmol/L) Sufficiency 30 - 100 ng/mL (75 - 250 nmol/L) Toxicity >100 ng/mL (>250 nmol/L) Performed By: #### L 501.9985, L501.9520, L506.1000 #### [facility] [address] [place], [place], [phone] Thyroidon 12-27-2023 Thyroid [facility] Imaging Services [address] [place], [place] [id number] Thyroid MR#: [id number] Acct: [id number] Name: ROJELIO ARAMBULA Rep #: [id number] : 1945 F 78 From: Bryant York MD PCP: Dr. Marcos Garcia MD Status: REG CLI Study: Thyroid Date of Exam: 12/27/23 Exam# [id number] Ordering Dr: Marcos Garcia MD [id number] INDICATION: NODULE EXAMINATION: Ultrasound US Thyroid (eg thyroid, parathyroid, parotid) TECHNIQUE: Chandler scale and color doppler imaging was performed of the thyroid gland. TIRADS criteria was utilized. COMPARISON: None. FINDINGS: RIGHT THYROID LOBE: Status post right hemithyroidectomy. LEFT THYROID LOBE: 4.1 x 1.3 x 1.9 cm with a volume of 5.2 mL Homogeneous echotexture. Normal vascularity. 3 mm nodule which is solid, hypoechoic, wider than tall with smooth margins and no echogenic foci. ISTHMUS: 3 mm Homogeneous echotexture. Normal vascularity. No thyroid nodules. US/Thyroid IMPRESSION: 3 mm TIRADS 4 nodule in the left lobe with no follow-up recommended. Electronically Signed: Bryant York DO at 23:29 EDT , CC: Dr. Marcos Garcia MD Molasses Feed Mixer: Signed Normal [facility] Hemoglobin A1con 12-20-2023 HbA1c (Bld) [Mass fraction] 6.2 % High 3.8-5.6 [facility] Comment on above: Result Comment: Norm al < 5.7 % Prediabetic 5.7 - 6.4 % Diabetic >or= 6.5 % Please note range changes. Performed By: #### L 501.9985, L501.9520, L506.1000 ####[facility] [address] [place], [address] Thyroid Stim Hormone (TSH)on 12-20-2023 TSH 1.870 uIU/mL Normal 0.358-3.740 [facility] Comment on above: Performed By: #### L 501.9985, L501.9520, L506.1000 ####[facility] [address] [place], [address] Vitamin D,25 Hydroxyon 12-19 Vitamin D 25-OH 31.2 ng/mL Normal [facility] Comment on above: Result Comment: Veena min D 25(OH) Status Range Deficiency <20 ng/mL (50nmol/L) Insufficiency 20 - 30 ng/mL (50 - 75 nmol/L) Sufficiency 30 - 100 ng/mL (75 - 250 nmol/L) Toxicity >100 ng/mL (>250 nmol/L) Performed By: #### L 501.9985, L501.9520, L506.1000 ####[facility] [address] [place], [address] NM BONE WHOLE BODYon 022 [facility] CBC W Auto Differential pane l (Bld)on 12-14-2021 Basophils (Bld) [#/Vol] 0.05 10*3/uL Normal <0.11 [facility] Comment on above: Order Comment: Speci men Type: BLOOD SPECIMEN Ordering Facility: [facility] Address: [address] [place] [address] Performed By: #### 5 7021-8 #### [facility] CLIA [id number] [address] [place] [address] [place] Basophils/100 WBC (Bld) 0.9 % Normal [facility] Comment on above: Order Comment: Speci men Type: BLOOD SPECIMEN Ordering Facility: [facility] Address: [address] [place] [address] Performed By: #### 5 7021-8 #### [facility] CLIA [id number] [address] [place] [address] [place] Differential cell count method Nom (Bld) Auto Normal [facility] Comment on above: Order Comment: Speci men Type: BLOOD SPECIMEN Ordering Facility: [facility]. Address: [address] [place] [address] Performed By: #### 5 7021-8 #### [facility] CLIA [id number] [address] [place] [address] [place] Eosinophils (Bld) [#/Vol] 0.33 10*3/uL Normal <0.46 [facility] Comment on above: Order Comment: Speci men Type: BLOOD SPECIMEN Ordering Facility: [facility]. Address: [address] [place] [address] Performed By: #### 5 7021-8 #### [facility] CLIA [id number] [address] [place] [address] [place] Eosinophils/100 WBC (Bld) 6.3 % Normal [facility] Comment on above: Order Comment: Speci men Type: BLOOD SPECIMEN Ordering Facility: [facility] Address: [address] [place] [address] Performed By: #### 5 7021-8 #### [facility] CLIA [id number] [address] [place] [address] [place] Erythrocyte distribution width (RBC) [Ratio] 12.2 % Normal 11.5-15.0 [facility] Comment on above: Order Comment: Speci men Type: BLOOD SPECIMEN Ordering Facility: [facility] Address: [address] [place] [address] Performed By: #### 5 7021-8 #### [facility] CLIA [id number] [address] [place] [address] [place] Hematocrit (Bld) [Volume fraction] 36.4 % Normal 36.0-46.0 [facility] Comment on above: Order Comment: Speci men Type: BLOOD SPECIMEN Ordering Facility: [facility] Address: [address] [place] [address] Performed By: #### 5 7021-8 #### [facility] CLIA [id number] [address] [place] [address] [place] Hemoglobin (Bld) [Mass/Vol] 12.0 g/dL Normal 11.5-15.5 [facility] Comment on above: Order Comment: Speci men Type: BLOOD SPECIMEN Ordering Facility: [facility] Address: [address] [place] [address] Performed By: #### 5 7021-8 #### [facility] CLIA [id number] [address] [place] [address] [place] IMMATURE GRAN % 0.4 % Normal [facility] Comment on above: Order Comment: Speci men Type: BLOOD SPECIMEN Ordering Facility: [facility] Address: [address] [place] [address] Performed By: #### 5 7021-8 #### [facility] CLIA [id number] [address] [place] [address] [place] IMMATURE GRAN ABS <0.03 Normal <0.10 [facility] Comment on above: Order Comment: Speci men Type: BLOOD SPECIMEN Ordering Facility: [facility] Address: [address] [place] [address] Performed By: #### 5 7021-8 #### [facility] CLIA [id number] [address] [place] [address] [place] Lymphocytes (Bld) [#/Vol] 1.44 10*3/uL Normal 1.00-4.00 [facility] Comment on above: Order Comment: Speci men Type: BLOOD SPECIMEN Ordering Facility: [facility] Address: [address] [place] [address] Performed By: #### 5 7021-8 #### [facility] IA [id number] [address] [place] [address] [place] Lymphocytes/100 WBC (Bld) 27.3 % Normal [facility] Comment on above: Order Comment: Speci men Type: BLOOD SPECIMEN Ordering Facility: [facility] Address: [address] [place] [address] Performed By: #### 5 7021-8 #### [facility] [place] [id number] [address] [place] [address] [place] MCH (RBC) [Entitic mass] 29.6 pg Normal 26.0-34.0 [facility] Comment on above: Order Comment: Speci men Type: BLOOD SPECIMEN Ordering Facility: [facility] Address: [address] [place] [address] Performed By: #### 5 7021-8 #### [facility] IA [id number] [address] [place] [address] [place] MCHC (RBC) [Mass/Vol] 33.0 g/dL Normal 30.5-36.0 [facility] Comment on above: Order Comment: Speci men Type: BLOOD SPECIMEN Ordering Facility: [facility] Address: [address] [place] [address] Performed By: #### 5 7021-8 #### [facility] CLIA [id number] [address] [place] [address] [place] MCV (RBC) [Entitic vol] 89.9 fL Normal 80.0-100.0 [facility] Comment on above: Order Comment: Speci men Type: BLOOD SPECIMEN Ordering Facility: [facility] Address: [address] [place] [address] Performed By: #### 5 7021-8 #### [facility] CLIA [id number] [address] [address] [place] Monocytes (Bld) [#/Vol] 0.42 10*3/uL Normal <0.87 [facility] Comment on above: Order Comment: Speci men Type: BLOOD SPECIMEN Ordering Facility: [facility] Address: [address] [place] [address] Performed By: #### 5 7021-8 #### [facility] CLIA [id number] [address] [place] [address] [place] Monocytes/100 WBC (Bld) 8.0 % Normal [facility] Comment on above: Order Comment: Speci men Type: BLOOD SPECIMEN Ordering Facility: [facility] Address: [address] [place] [address] Performed By: #### 5 7021-8 #### [facility] CLIA [id number] [address] [place] [address] [place] Neutrophils (Bld) [#/Vol] 3.01 10*3/uL Normal 1.45-7.50 [facility] Comment on above: Order Comment: Speci men Type: BLOOD SPECIMEN Ordering Facility: [facility] Address: [address] [place] [address] Performed By: #### 5 7021-8 #### [facility] CLIA [id number] [address] [place] [address] [place] Neutrophils/100 WBC (Bld) 57.1 % Normal [facility] Comment on above: Order Comment: Speci men Type: BLOOD SPECIMEN Ordering Facility: [facility] Address: [address] [place] [address] Performed By: #### 5 7021-8 #### [facility] CLIA [id number] [address] [id number] [address] [place] Nucleated RBC (Bld) [#/Vol] 10*3/uL Normal <0.01 [facility] Comment on above: Order Comment: Speci men Type: BLOOD SPECIMEN Ordering Facility: [facility] Address: [address] [place] [address] Performed By: #### 5 7021-8 #### [facility] CLIA [id number] [address] [place] [address] [place] Nucleated RBC/100 WBC (Bld) [Ratio] 0.0 /100 WBC Normal [facility] Comment on above: Order Comment: Speci men Type: BLOOD SPECIMEN Ordering Facility: [facility] Address: [address] [place] [address] Performed By: #### 5 7021-8 #### [facility] CLIA [id number] [address] [place] [address] [place] Platelet mean volume (Bld) [Entitic vol] 10.3 fL Normal 9.0-12.7 [facility] Comment on above: Order Comment: Speci men Type: BLOOD SPECIMEN Ordering Facility: [facility] Address: [address] [place] [address] Performed By: #### 5 7021-8 #### [facility] CLIA [id number] [address] [place] [address] [place] Platelets (Bld) [#/Vol] 231 10*3/uL Normal 150-400 [facility] Comment on above: Order Comment: Speci men Type: BLOOD SPECIMEN Ordering Facility: [facility] Address: [address] [place] [address] Performed By: #### 5 7021-8 #### [facility] CLIA [id number] [address] [place] [address] [place] RBC (Bld) [#/Vol] 4.05 10*6/uL Normal 3.90-5.20 [facility] Comment on above: Order Comment: Speci men Type: BLOOD SPECIMEN Ordering Facility: [facility] Address: [address] [place] [address] Performed By: #### 5 7021-8 #### [facility] CLIA [id number] [address] [place] [address] [place] WBC (Bld) [#/Vol] 5.27 10*3/uL Normal 3.70-11.00 [facility] Comment on above: Order Comment: Speci men Type: BLOOD SPECIMEN Ordering Facility: [facility] Address: [address] [place] [address] Performed By: #### 5 7021-8 #### [facility] CLIA [id number] [address] [place] [address] [place] CRP SerPl-mCncon 12-14-2021 CRP [Mass/Vol] mg/L Normal <0.9 [facility] Comment on above: Order Comment: Speci men Type: BLOOD SPECIMEN Ordering Facility: [facility] Address: [address] [place] [address] Performed By: #### 1 988-5 #### [facility] CLIA [id number] [address] [place] [address] [place] ESR Westergren method (Bld) [Velocity]on 12-14-2021 ESR (Bld) [Velocity] 20 mm/h Normal 0-20 [facility] Comment on above: Order Comment: Speci men Type: BLOOD SPECIMEN Ordering Facility: [facility] Address: [address] [place] [address] Performed By: #### 4 537-7 #### [facility] CLIA [id number] [address] [place] [address] [place] CBCon 10-26-2021 Hematocrit (Bld) [Volume fraction] 39.6 % 34 - 48 % [facility] Hemoglobin (Bld) [Mass/Vol] 13.2 g/dL 11.5 - 15.5 g/dL [facility] MCH (RBC) [Entitic mass] 30.4 pg 26 - 35 pg [facility] MCHC (RBC) [Mass/Vol] 33.3 % 32 - 34.5 % [facility] MCV (RBC) [Entitic vol] 91.2 fL 80 - 99.9 fL [facility] Platelet distribution width (Bld) [Ratio] 12.1 fL 11.5 - 15 fL [facility] Platelet mean volume (Bld) [Entitic vol] 9.9 fL 7 - 12 fL [facility] Platelets (Bld) [#/Vol] 257 10*3/uL [facility] RBC (Bld) [#/Vol] 4.34 10*6/uL [facility] WBC (Bld) [#/Vol] 4.9 10*3/uL [facility] CBC With Platelet No Differe ntialon 10-26-2021 Hematocrit (Bld) [Volume fraction] 39.6 % Normal 34.0-48.0 [facility] Hemoglobin (Bld) [Mass/Vol] 13.2 g/dL Normal 11.5-15.5 [facility] MCH (RBC) [Entitic mass] 30.4 pg Normal 26.0-35.0 [facility] MCHC 33.3 % Normal 32.0-34.5 [facility] MCV (RBC) [Entitic vol] 91.2 fL Normal 80.0-99.9 [facility] Platelet Count 257 E9/L Normal 130-450 [facility] Platelet mean volume (Bld) [Entitic vol] 9.9 fL Normal 7.0-12.0 [facility] RBC 4.34 E12/L Normal 3.50-5.50 [facility] RDW 12.1 fL Normal 11.5-15.0 [facility] WBC 4.9 E9/L Normal 4.5-11.5 [facility] METER GLUCOSEon 10-26-2021 Glucose [Mass/Vol] 113 mg/dL High 74-99 [facility] POCT Glucoseon 10-26-2021 Glucose [Mass/Vol] 113 mg/dL High 74 - 99 mg/dL [facility] Interpretation and review of laboratory results Abnormal [facility] Surgical Specimenon 10-27-19 22 Surgical Specimen [facility] [address] [facility] [address] [place] [address] FINAL SURGICAL PATHOLOGY REPORT NAME: ROJELIO ARAMBULA Date of 10/26/2021 Collection: Medical Record [id number] Date of 10/26/2021 Number: Receipt: Age: 76 Y Sex: F Date 10/31/2021 10:20 Reported: Date Of : 1945 Financial [id number] Admitting ANG ADAMES Number: Physician: Patient DIS ENDOPLNON Ordering ANG ADAMES Location: Physician: Accession Number: [id number] Additional Physicians:TIO PEREZ Diagnosis: A. Stomach: Mild chronic gastritis without intestinal metaplasia. B. Duodenum: No significant histopathologic abnormality. C. Distal esophagus: Squamous and glandular mucosa with mild chronic inflammation. Negative for intestinal metaplasia or dysplasia. CHANA CORLEY M.D. (Electronic Signature) Specimen Submitted: A. STOMACH BIOPSY, WITH HELICOBACTER IPX, ULCER B. DUODENUM BIOPSY C. ESOPHAGUS, BIOPSY, DISTAL Clinical Notes: Operative procedure: Colonoscopy, EGD Preoperative Dx: Diverticulitis, anemia, blood loss Microscopic Evaluation: Was performed. Gross Description: Submitted in three parts in formalin. A. Labeled Rojelio Arambula, biopsy healing gastric ulcer consists of a hidalgo soft fragment of tissue that measures 0.3 x 0.2 x 0.2 cm. Entirely submitted. Block label A1. B. Labeled Rojelio Arambula, biopsy duodenum consists of two hidalgo soft fragments of tissue, each measuring 0.2 x 0.2 x 0.2 cm. Entirely submitted. Block label B1. C. Labeled Rojelio Zaratebb, biopsy distal esophagus consists of a white-pink soft fragment of tissue that measures 0.4 x 0.2 x 0.2 cm. Entirely submitted. Block label C1. ([facility]) CODES: 11212v4; Department of Pathology Page 1 of 1 Normal [facility] CNOVon 08-28-2021 CNOV Office Visit (PULI ) -------- ROJELIO ARAMBULA ([id number]) 1945 F Date Time Provider Department 08/28/21 1:20 PM JUSTIN CHEATHAMIzzy During your visit today, we recorded the following information about you: Pulse Respiration Blood pressure 77/minute 20/minute 135/66 Liudmila Cheatham MD 08/28/2021 1:46 PM Signed [facility] [place] Subjective Rojelio Arambula is a 75 year old female seen s/p covid And has been doing well Had pft and is to have a follow up ct of chest from 04/15 that was improved. She has no cough not sob , exercising and desat study was good no oxygen needed. She also had pft done She is gardening and does well Had poisen fatemeh and on rx. No cp feels well , her hair loss from covid recovered. 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 - Vertigo PAST SURGICAL HISTORY Procedure Laterality Date - COLONOSCOPY - PAST SURGICAL HISTORY OF 2011 right breast lumpectomy - PAST SURGICAL HISTORY OF 2004 right bunionectomy - PAST SURGICAL HISTORY OF bowel resction 1971-endometriosis - PAST SURGICAL HISTORY OF 2005 lithotripsy - PAST SURGICAL HISTORY OF partial thyroidectomy (right) - PAST SURGICAL HISTORY OF right knee replacement, left knee replacement - PAST SURGICAL HISTORY OF Right 09/2019 shoulder impingment surgery - TOTAL ABDOM HYSTERECTOMY 1972 FAMILY HISTORY Problem Relation Age of Onset - other (heart disease) Father - Diabetes Son - Cancer Mother lung and bone Social History Tobacco Use - Smoking status: Never Smoker - Smokeless tobacco: Never Used Substance Use Topics - Alcohol use: Yes - Drug use: No ALLERGIES Allergen Reactions - Morphine Swelling Rash, edema - Oxycodone Other: See Comments N/V, headache - Penicillins Rash - Propoxyphene nausea Current Outpatient Medications on File Prior to Visit Medication Sig - lisinopril-hydrochloroth iazide (PRINZIDE,ZESTORETIC) 20-12.5 mg per tablet Take 2 tablets by mouth once daily. - cholecalciferol, vitamin D3, (VITAMIN D3 ORAL) Take by mouth. - atorvastatin (LIPITOR) 10 mg tablet Take 10 mg by mouth once daily. PM - metFORMIN (GLUCOPHAGE) 500 mg tablet Take 500 mg by mouth daily with breakfast. - acetaminophen (TYLENOL) 500 mg tablet Take 2 tablets by mouth every 8 hours. Do not exceed more than 3000 mg of Tylenol per 24 hour period - ascorbic acid, vitamin C, (VITAMIN C) 500 mg tablet Take 1 tablet by mouth twice daily with meals. - Levothyroxine 75 mcg cap Take 75 mcg by mouth once daily. - sertraline (ZOLOFT) 100 mg tablet Take 100 mg by mouth once daily. No current facility-administered medications on file prior to visit. Review of Systems Constitutional: Negative for activity change, appetite change, chills, diaphoresis, fatigue, fever and unexpected weight change. HENT: Negative for congestion, dental problem, drooling, ear discharge, ear pain, facial swelling, hearing loss, mouth sores, nosebleeds, postnasal drip, rhinorrhea, sinus pressure, sneezing, sore throat, tinnitus, trouble swallowing and voice change. Eyes: Negative for photophobia, pain, discharge, redness, itching and visual disturbance. Respiratory: Negative for apnea, cough, choking, chest tightness, shortness of breath, wheezing and stridor. Cardiovascular: Negative for chest pain, palpitations and leg swelling. Gastrointestinal: Negative for abdominal distention, abdominal pain, anal bleeding, blood in stool, constipation, diarrhea, nausea and rectal pain. Endocrine: Negative for cold intolerance, heat intolerance, polydipsia, polyphagia and polyuria. Genitourinary: Negative for decreased urine volume, difficulty urinating, dysuria, enuresis, flank pain, frequency, genital sores, hematuria and urgency. Musculoskeletal: Negative for arthralgias, back pain, gait problem, joint swelling, myalgias, neck pain and neck stiffness. Skin: Negative for color change, pallor and rash. Allergic/Immunologic: Negative for environmental allergies, food allergies and immunocompromised state. Neurological: Negative for dizziness, tremors, seizures, syncope, facial asymmetry, speech difficulty, weakness, light-headedness, numbness and headaches. Hematological: Negative for adenopathy. Does not bruise/bleed easily. Psychiatric/Behavioral: Negati (more content not included)... Normal [facility] CT CHEST WO IVCONon 03-30-19 CT CHEST WO IVCON * * *Final Report* * * DATE OF EXAM: Mar 30 2021 10:03AM MANN [id number] - CT CHEST WO IVCON / PROCEDURE REASON: LUNG NODULE * * * * Physician Interpretation * * * * RESULT: EXAMINATION: CHEST CT WITHOUT CONTRAST CLINICAL HISTORY: Covid pneumonia Technique: Spiral CT acquisition of the chest from the thoracic inlet to the upper abdomen without contrast. MQ: [id number] CT Radiation dose: Integrated Dose-length product (DLP) for this visit = 192 mGy*cm CT Dose Reduction Employed: Automated exposure control (AEC) Comparison: CT chest 11/25/2020 RESULT: Limitations: None. Lines, tubes, and devices: None. Lung parenchyma and airways: There is decreased but persistent diffuse groundglass opacification throughout all lobes. Previously seen regions of dense consolidation within the lung bases have shown improved aeration. Central tracheobronchial tree is patent. No suspicious pulmonary nodules are identified. Pleural space: No pleural effusion. No pleural thickening. Lower neck, lymph nodes, and mediastinum: The imaged thyroid gland is normal. No lymphadenopathy in the supraclavicular, axillary, mediastinal, or hilar regions. Heart, pericardium, and thoracic vessels: The thoracic aorta and main pulmonary artery are normal in caliber. The cardiac chambers are normal in size. No coronary artery atherosclerotic calcifications are noted, although the study is not optimized for coronary assessment. No pericardial effusion or thickening. Bones and soft tissues: No destructive bone lesion. Chest wall is unremarkable. Degenerative changes involve the thoracic spine. Upper abdomen: No abnormality in the imaged upper abdomen. Nurses' Aide (topogram) images: No additional findings. IMPRESSION: 1. Since 11/25/2020, decrease in persistent diffuse groundglass opacities throughout all lobes, compatible with resolving known viral pneumonia. 2. Improved aeration of the lung bases, with marked decrease in previously seen dense areas of consolidation. Transcribe Date/Time: Mar 30 2021 10:25A Dictated by: SINDI ABRAHAM MD This examination was interpreted and the report reviewed and electronically signed by: SINDI ABRAHAM MD on Mar 30 2021 10:42AM EST Thank you for allowing us to participate in the care of your patient. Should there be any questions regarding this interpretation, please call [phone]. If you are unable to reach us at the number above, please feel free to contact [facility] at [phone]. [id number] Normal [facility] CNOVon 02-27-2021 CNOV Office Visit (PULMHI ) -------- TYESHAROJELIO Huerta ([id number]) 1945 F Date Time Provider Department 02/27/21 4:00 PM JUSITN CHEATHAM PULI During your visit today, we recorded the following information about you: Temperature Pulse Respiration Blood pressure 97.9 degrees 81/minute 20/minute 121/59 Weight Height 70.3 kg 1.549 m Liudmila Cheatham MD 02/27/2021 4:31 PM Signed [facility] [place] Subjective Rojelio Huerta Tyesha is a 75 year old female With hx of covid 11/2020 And had oxygen up to 6 liters And + positive and had antibody and did not improve And poor oxygenation And cs and ab/ and did better Went to rehab for one week , No known Exposure Did not need oxygen And losing hair now And is seen by pcp and some memory And is to ct of chest - And did get a lot of physical therapy 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 , 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 No hx of asthma And no hx of copd And family hx of lung cancer Mom + smoker Gardening , can go up steps Is sob after a few flights Has cxr with stable But noted scarring noted Do not have the records And is to have ct of chest - With covid had headache and then lost taste And + covid and medicine and s/p infusion and did desaturation and had falls and dizziness S/p covid vaccination and s/p flu shot 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 - Vertigo PAST SURGICAL HISTORY Procedure Laterality Date - COLONOSCOPY - PAST SURGICAL HISTORY OF 2011 right breast lumpectomy - PAST SURGICAL HISTORY OF 2004 right bunionectomy - PAST SURGICAL HISTORY OF bowel resction 1971-endometriosis - PAST SURGICAL HISTORY OF 2005 lithotripsy - PAST SURGICAL HISTORY OF partial thyroidectomy (right) - PAST SURGICAL HISTORY OF right knee replacement, left knee replacement - PAST SURGICAL HISTORY OF Right 09/2019 shoulder impingment surgery - TOTAL ABDOM HYSTERECTOMY 1971 FAMILY HISTORY Problem Relation Age of Onset - other (heart disease) Father - Diabetes Son - Cancer Mother lung and bone Social History Tobacco Use - Smoking status: Never Smoker - Smokeless tobacco: Never Used Substance Use Topics - Alcohol use: Yes - Drug use: No ALLERGIES Allergen Reactions - Morphine Swelling Rash, edema - Oxycodone Other: See Comments N/V, headache - Penicillins Rash - Propoxyphene nausea Current Outpatient Medications on File Prior to Visit Medication Sig - lisinopril-hydrochloroth iazide (PRINZIDE,ZESTORETIC) 20-12.5 mg per tablet Take 2 tablets by mouth once daily. - cholecalciferol, vitamin D3, (VITAMIN D3 ORAL) Take by mouth. - atorvastatin (LIPITOR) 10 mg tablet Take 10 mg by mouth once daily. PM - metFORMIN (GLUCOPHAGE) 500 mg tablet Take 500 mg by mouth daily with breakfast. - acetaminophen (TYLENOL) 500 mg tablet Take 2 tablets by mouth every 8 hours. Do not exceed more than 3000 mg of Tylenol per 24 hour period - ascorbic acid, vitamin C, (VITAMIN C) 500 mg tablet Take 1 tablet by mouth twice daily with meals. - Levothyroxine 75 mcg cap Take 75 mcg by mouth once daily. - sertraline (ZOLOFT) 100 mg tablet Take 100 mg by mouth once daily. No current facility-administered medications on file prior to visit. Review of Systems Constitutional: Negative for activity change, appetite change, chills, diaphoresis, fatigue, fever and unexpected weight change. HENT: Negative for congestion, dental problem, drooling, ear discharge, ear pain, facial swelling, hearing loss, mouth sores, nosebleeds, postnasal drip, rhinorrhea, sinus pressure, sneezing, sore throat, tinnitus, trouble swallowing and voice change. Eyes: Negative for photophobia, pain, discharge, redness, itching and visual disturbance. Respiratory: Negative for apnea, cough, choking, chest tightness, shortness of breath, wheezing and stridor. Cardiovascular: Negative for chest pain, palpitations and leg swelling. Gastrointestinal: Negative for abdominal distention, abdominal pain, anal bleeding, blood in stool, constipation, diarrhea, nausea and rectal pain. Endocrine: Negative for cold intolerance, heat intolerance, polydipsia, polyphagia and polyuria. Genitourinary: Negative for decreased urine volume, difficulty urinating, dysuria, enuresis, flank pain, frequency, genital sores, hematuria and u (more content not included)... Normal [facility] C-Reactive Proteinon 021 C-Reactive Protein 0.4 mg/dL Normal <0.9 [facility] Comment on above: Performed By: #### C BCDIF, WSR, CRP #### [facility] [address] [place], [place] [address] CBC and Differentialon 11-14 Abs Baso 0.03 k/uL Normal <0.11 [facility] Comment on above: Performed By: #### C BCDIF, WSR, CRP #### [facility] [address] [place] [phone] Abs [place] 0.38 k/uL Normal <0.87 [facility] Comment on above: Performed By: #### C BCDIF, WSR, CRP #### [facility] [phone] Abs Neut 3.55 k/uL Normal 1.45-7.50 [facility] Comment on above: Performed By: #### C BCDIF, WSR, CRP #### [facility] [address] [place], [place] [phone] Absolute nRBC <0.01 Normal <0.01 [facility] Comment on above: Performed By: #### C BCDIF, WSR, CRP #### [facility] [address] [place], [place] [address] Basophils/100 WBC (Bld) 0.6 % Normal [facility] Comment on above: Performed By: #### C BCDIF, WSR, CRP #### [facility] [address] [place] [phone] DTYPE ADIFF Normal [facility] Comment on above: Performed By: #### C BCDIF, WSR, CRP #### [facility] [address] [place] [phone] Eosinophils (Bld) [#/Vol] 0.10 10*3/uL Normal <0.46 [facility] Comment on above: Performed By: #### C BCDIF, WSR, CRP #### [facility] [address] [place] [phone] Eosinophils/100 WBC (Bld) 2.1 % Normal [facility] Comment on above: Performed By: #### C BCDIF, WSR, CRP #### [facility] [address] [place], [place] [address] Erythrocyte distribution width (RBC) [Ratio] 11.9 % Normal 11.5-15.0 [facility] Comment on above: Performed By: #### C BCDIF, WSR, CRP #### [facility] [address] [place], [place] [address] Hematocrit (Bld) [Volume fraction] 36.8 % Normal 36.0-46.0 [facility] Comment on above: Performed By: #### C BCDIF, WSR, CRP #### [facility] [address] [place] [address] Hemoglobin (Bld) [Mass/Vol] 12.0 g/dL Normal 11.5-15.5 [facility] Comment on above: Performed By: #### C BCDIF, WSR, CRP #### [facility] [address] [place] [address] Lymphocytes (Bld) [#/Vol] 0.59 10*3/uL Low 1.00-4.00 [facility] Comment on above: Performed By: #### C BCDIF, WSR, CRP #### [facility] [address] [place], [place] [address] Lymphocytes/100 WBC (Bld) 12.7 % Normal [facility] Comment on above: Performed By: #### C BCDIF, WSR, CRP #### [facility] [address] [place] [address] MCH 30.1 pG Normal 26.0-34.0 [facility] Comment on above: Performed By: #### C BCDIF, WSR, CRP #### [facility] [address] [place], [place] [address] MCHC (RBC) [Mass/Vol] 32.6 g/dL Normal 30.5-36.0 [facility] Comment on above: Performed By: #### C BCDIF, WSR, CRP #### [facility] [address] [place], [place] [address] MCV (RBC) [Entitic vol] 92.2 fL Normal 80.0-100.0 [facility] Comment on above: Performed By: #### C BCDIF, WSR, CRP #### [facility] [address] [place], [place] [address] Monocytes/100 WBC (Bld) 8.2 % Normal [facility] Comment on above: Performed By: #### C BCDIF, WSR, CRP #### [facility] [address] [place], [place] [address] Neutrophils/100 WBC (Bld) 76.4 % Normal [facility] Comment on above: Performed By: #### C BCDIF, WSR, CRP #### [facility] [address] [place], [place] [address] NRBCs 0.0 /100 WBC Normal 0 [facility] Comment on above: Performed By: #### C BCDIF, WSR, CRP #### [facility] [address] [place], [place] [address] Platelet mean volume (Bld) [Entitic vol] 10.9 fL Normal 9.0-12.7 [facility] Comment on above: Performed By: #### C BCDIF, WSR, CRP #### [facility] [address] [place], [place] [address] Platelets (Bld) [#/Vol] 207 10*3/uL Normal 150-400 [facility] Comment on above: Performed By: #### C BCDIF, WSR, CRP #### [facility] [address] [place], [place] [address] RBC (Bld) [#/Vol] 3.99 10*6/uL Normal 3.90-5.20 [facility] Comment on above: Performed By: #### C BCDIF, WSR, CRP #### [facility] [address] [place], [place] [phone] WBC (Bld) [#/Vol] 4.66 10*3/uL Normal 3.70-11.00 [facility] Comment on above: Performed By: #### C BCDIF, WSR, CRP #### [facility] [address] [place], [place] [address] Sed Rate Westergrenon 2020 Sed Rate Westergren 24 mm/hr High 0-20 [facility] Comment on above: Performed By: #### C BCDIF, WSR, CRP #### [facility] [address] [place], [place] [address] ANES POSTPROC EVALon 020 ANES POSTPROC EVAL HNO ID: [id number] Author: Scotty Batres Service: ? Author Type: Anesthesiologist Type: Anesthesia Postprocedure Evaluation Filed: 02/09/2020 1:52 PM Note Text: POST ANESTHESIA EVALUATION NOTE : 1945 Procedure Summary Date: 02/09/20 Room / Location: ORA / OR Anesthesia Start: 1121 Anesthesia Stop: 134 Procedures: OPEN REPAIR SHOULDER ROTATOR CUFF OPEN; CHRONIC (Right Shoulder) ARTHROSCOPY SHOULDER DISTAL CLAVICULECTOMY (Right Shoulder) Diagnosis: Impingement syndrome of right shoulder (M75.41 / IMPINGEMENT) Surgeons: Faizan Parrish Responsible Provider: Scotty Batres Anesthesia Type: general ASA Status: 3 Anesthesia Type: general Last vitals Vitals Value Taken Time BP 128/60 02/09/20 1345 Temp 36.5 ?C (97.7 ?F) 02/09/20 1332 Pulse 71 02/09/20 1350 Resp 18 02/09/20 1350 SpO2 99 % 02/09/20 1350 Vitals shown include unvalidated device data. Post Anesthesia Patient Status Patient Evaluation: PACU. PACU/ICU Patient Condition: stable. Neurological Status: aware and responsive. Pulmonary Status: breathing comfortably on supplemental oxygen Airway Control: returned to baseline unsupported. Cardiovascular Status: stable. Pain Management: clinically adequate Postoperative Hydration: acceptable. Intraoperative Events: no significant anesthesia events Post Operative Nausea/Vomiting Status: no significant post operative nausea or vomiting Anesthetic Observations: no significant anesthetic observations Recommendation: continue current plan of care. SIGNATURE: Scotty Batres MD PATIENT NAME: Rojelio Arambula DATE: February 09, 2020 TIME: 1:51 PM CSN: [id number] [facility] ANES PRE-OPon 02-09-2020 ANES PRE-OP HNO ID: [id number] Author: Scotty Batres Service: ? Author Type: Anesthesiologist Type: Anesthesia Preprocedure Evaluation Filed: 02/09/2020 1:51 PM Note Text: ANESTHESIOLOGY DAY OF SURGERY NOTE : 1945 Procedure(s) (LRB): OPEN REPAIR SHOULDER ROTATOR CUFF OPEN; CHRONIC (Right) ARTHROSCOPY SHOULDER DISTAL CLAVICULECTOMY (Right) Surgeon(s): Faizan Parrish Estimated body mass index is 30.45 kg/m? as calculated from the following: Height as of 01/29/20: 152.4 cm (5'). Weight as of 01/29/20: 70.7 kg (155 lb 14.4 oz). Most recent hematocrit and potassium results: Hematocrit 36.4 01/29/2020 Potassium 3.6 01/29/2020 Relevant Problems ANESTHESIA (+) PONV (postoperative nausea and vomiting) CARDIO (+) Essential hypertension ENDO (+) Postoperative hypothyroidism GI (+) Gastroesophageal reflux disease without esophagitis NEURO-PSYCH (+) History of breast cancer I - PHYSICAL EVALUATION AIRWAY Patient intubated: No. Tracheostomy tube not present Mallampati: II. TM distance: >3 FB. Neck ROM: full ROM without neurological symptoms. Mouth opening: adequate. Short neck: no. Thick neck: no DENTAL Dental findings: teeth intact. II - ANESTHESIA PLAN ASA Score: 3 Anesthetic Plan: general Airway type: ETT The patient is not a current smoker. NPO Status: adequate Administration of chronic beta britney medication not planned. Monitoring plan: standard ASA. Postoperative analgesic plan: parenteral or oral opioids. Anesthetic Risks, Benefits, Alternatives, Personnel Discussed. Consent obtained from: patient and family. Patient / Surrogate agrees to blood products: Yes DNR status not reviewed with patient and/or family prior to surgery. Significant changes in the patient condition since the History and Physical, not otherwise documented in primary service progress note: no. Potential Anesthesia issues that may suggest increased risk of complications or contraindication to planned procedure: none. Vitals Value Taken Time BP 114/61 02/09/20 1115 Pulse 70 02/09/20 1116 Resp 31 02/09/20 1116 Temp 36.5 ?C (97.7 ?F) 02/09/20 0950 SpO2 97 % 02/09/20 1116 Vitals shown include unvalidated device data. Facility-Administered Medications as of 02/09/2020 Medication Dose Route Frequency - [COMPLETED] acetaminophen 1,000 mg tab(s) (TYLENOL) 1,000 mg ORAL ONCE - lidocaine 10 mg/mL (1 %) 1-2 mg injection (XYLOCAINE) 0.1-0.2 mL INTRADERMAL PRN - lactated ringers infusion 5-30 mL/hr INTRAVENOUS CONTINUOUS - vancomycin iv piggyback 1 g in D5W 200 mL (VANCOCIN) 1 g INTRAVENOUS Bingo Checker to OR - [COMPLETED] ciprofloxacin iv piggyback 400 mg in D5W 200 mL (CIPRO) 400 mg INTRAVENOUS Bingo Checker to OR - [COMPLETED] midazolam (PF) 2 mg injection (VERSED) 2 mg INTRAVENOUS ONCE - ropivacaine (PF) 1,500 mg in empty bag Total Volume 750 mL (NAROPIN) PERIPHERAL NERVE CATHETER CONTINUOUS - [COMPLETED] PHENYLephrine iv infusion 10 mg in NaCl 0.9% 250 mL (TIFFANIE-SYNEPHRINE) 25-300 mcg/min INTRAVENOUS ONCE - scopolamine 1 mg over 3 days 1 Patch (TRANSDERM-SCOP) 1 Patch TRANSDERMAL q 72 HR Outpatient Medications as of 02/09/2020 Medication Sig - metFORMIN (GLUCOPHAGE) 500 mg tablet Take 500 mg by mouth daily with breakfast. - Levothyroxine 75 mcg cap Take 75 mcg by mouth once daily. - sertraline (ZOLOFT) 100 mg tablet Take 100 mg by mouth once daily. - clindamycin (CLEOCIN HCL) 150 mg capsule Take 1 capsule by mouth every 6 hours for 5 days. - oxyCODONE-acetaminophen (PERCOCET) 5-325 mg tablet Take 1 tablet by mouth every 6 hours as needed for up to 7 days. - acetaminophen (TYLENOL) 500 mg tablet Take 2 tablets by mouth every 8 hours. Do not exceed more than 3000 mg of Tylenol per 24 hour period - ascorbic acid, vitamin C, (VITAMIN C) 500 mg tablet Take 1 tablet by mouth twice daily with meals. I have interviewed and examined the patient. I have reviewed the medical record and/or the pre-anesthesia evaluation, pertinent labs, and test results. This contains updated information obtained within 48 hours of Surgery/Procedure. SIGNATURE: Scotty Batres MD PATIENT NAME: Rojelio Arambula DATE: February 09, 2020 TIME: 10:50 AM CSN: [id number] [facility] NURSING PROGon 02-09-2020 NURSING PROG HNO ID: [id number] Author: Ashley Altamirano RN Service: ? Author Type: Registered Nurse Type: Nursing Progress Note Filed: 02/09/2020 4:10 PM Note Text: Nursing Progress Note Patient Name: Rojelio Arambula Patient Location: [facility] OR POOL/[facility] OR POOL Daily Note: 1550 Pt arrived to phase II, denies any pain at this time. Drsg to right shoulder CDI. Pt with positive movement and sensation noted. Arm to sling. Peripheral nerve catheter infusing per orders. Positive radial pulse. Pt ambulated to restroom with steady gait. 1605 Pt tolerating crackers and sprakle marlin well. This note was completed by: Ashley Altamirano RN [facility] NURSING PROG HNO ID: [id number] Author: Chris Arevalo RN Service: Nursing Author Type: Registered Nurse Type: Nursing Progress Note Filed: 02/09/2020 10:36 AM Note Text: Tolerated procedure very well [facility] NURSING PROG HNO ID: [id number] Author: Chris Arevalo RN Service: Nursing Author Type: Registered Nurse Type: Nursing Progress Note Filed: 02/09/2020 9:28 AM Note Text: Right ISB with Exparel Dr. Hasmukh WHITTAKER Patient verbalized her understanding of the nerve block procedure [facility] OPERATIVE NOon 02-09-2020 OPERATIVE NO HNO ID: [id number] Author: Faizan Parrish Service: Orthopaedic Surgery Author Type: Physician Type: Operative Report Filed: 03/06/2020 9:04 AM Note Text: [facility] - Operative Report ROJELIO ARAMBULA : 1945 AGE: 74. SEX: F PATIENT TYPE: A HOSP [facility] [place] [facility] LOCATION: [facility] ATTENDING PHYSICIAN: Faizan Parrish MD CSN NUMBER: [id number] DATE OF SURGERY/PROCEDURE: 02/09/2020 INCISION/PROCEDURE START TIME: 12:13 PM INCISION CLOSE/PROCEDURE END TIME: 1:05 PM PREOPERATIVE DIAGNOSIS: 1. Right shoulder rotator cuff tear. 2. Acromioclavicular joint arthritis. POSTOPERATIVE DIAGNOSIS: 1. Right shoulder rotator cuff tear. 2. Acromioclavicular joint arthritis. 3. Impingement. SURGEON: Faizan Parrish MD TOP TRIMMER: Jaren Burns PA and Janis. SURGERY/PROCEDURE: 1. Right shoulder open rotator cuff repair. 2. Subacromial decompression. 3. Distal clavicle excision. ANESTHESIA: Interscalene block with general anesthetic. ESTIMATED BLOOD LOSS: 5 mL. INDICATIONS FOR SURGERY: The patient has been having ongoing pain and discomfort in the right shoulder. It has not gotten better with conservative management. I did discuss with the patient preoperatively the detailed risks and benefits of surgical intervention. She understood and wished to proceed. Risks included, but were not exclusive to infection, blood clot, anesthetic complications, ongoing pain, the need for further surgery, etc. DESCRIPTION OF PROCEDURE: Patient was seen by me in the preoperative area. I did identify the proper limb, proper procedure, proper patient. I marked the limb. Patient underwent an interscalene block for anesthesia with catheter placement. Additionally, the patient was then taken to the operating room. Once in the operating room, time-in and time-out was called. Exam under anesthesia revealed full range of motion of the right shoulder. No instability. We then proceeded to prep and drape the extremity in the usual sterile fashion for shoulder surgery. The patient was put to sleep prior to this. We then proceeded to prep and drape the extremity in the usual sterile fashion. A dorsal incision was made overlying the acromioclavicular joint and distal acromion. Going through skin and subcutaneous tissues, we dissected the anterior deltoid forward exposing the underlying coracoacromial ligament. This was released exposing a remnant of a bone spur involving the anterior acromion. This was removed. We then identified the rotator cuff. There was tearing at the distal extent of the supraspinous tendon. It was near complete. We proceeded to place 2 sutures of #1 Ethibond and we got essentially a watertight repair. We then proceeded to remove the subacromial bone spur. After this was done, we exposed the cuff. It was also noted that the acromioclavicular joint was arthritic and part of the distal clavicle. We exposed the distal clavicle and then proceeded to remove it with an oscillating saw, about a centimeter or so. At this time, we had a complete decompression. There was no restriction on the rotator cuff. We then proceeded to irrigate the wound. The deltoid was closed with #1 Ethibond suture followed by closure of subcu with 2-0 Monocryl suture and closed the skin with SureClose. A sterile bandage was applied followed by a shoulder immobilizer and the patient was taken to the recovery room in stable condition. Distal neurovascular status was intact. Patient did receive antibiotics on-call to the operating room. The patient also did receive vancomycin powder during closure. Faizan Parrish MD [facility]:[id number] /[id number] cc: [facility] SURGICAL PATHOLOGYon 020 SURGICAL PATHOLOGY Specimen originated from [facility] Specimen #: [id number] Submitting Physician: FAIZAN PARRISH __ FINAL DIAGNOSIS Bone, distal clavicle, excision - Osteocartilaginous tissue with degenerative changes. RONI/sed 02/12/2020 Carter CordovaB.S., Ph.D. (Electronic Signature) SPECIMEN SUBMITTED A: DISTAL CLAVICLE CLINICAL DATA RIGHT OPEN SHOULDER ACROMINOPLASTY/ROTATOR CUFF REPAIR IMPINGEMENT GROSS DESCRIPTION A. Received in formalin labeled distal clavicle is a portion of bone with minimal amounts of soft tissue, measuring 1.9 x 1.3 x 0.5 cm. The entire specimen is submitted in one cassette following decalcification. GLENNA/hannah 02/10/2020 Gross examination performed at [facility], [address] [place] [address]. Date of Report: 02/15/2020 Date of Procedure: 02/09/2020 Date of Receipt: 02/09/2020 Submitted by: FAIZAN PARRISH Location: OR Diagnostic interpretation performed at [facility], [address] [place] [address]. [place] Number: [id number] [facility] HOSPon 01-12-2020 HOSP Patient:Kristie Arambula MRN: Height:5' 0(1.524 m) Weight:155 lb 14.4 oz (70.716 kg) Outpatient Medications as of 02/09/20: lisinopril-hydrochloroth iazide (PRINZIDE,ZESTORETIC) 20-12.5 mg per tablet cholecalciferol, vitamin D3, (VITAMIN D3 ORAL) atorvastatin (LIPITOR) 10 mg tablet metFORMIN (GLUCOPHAGE) 500 mg tablet acetaminophen (TYLENOL) 500 mg tablet ascorbic acid, vitamin C, (VITAMIN C) 500 mg tablet Levothyroxine 75 mcg cap sertraline (ZOLOFT) 100 mg tablet Admission/Clinic Administered Medications as of 02/09/20: lidocaine 10 mg/mL (1 %) 1-2 mg injection (XYLOCAINE) lactated ringers infusion vancomycin iv piggyback 1 g in D5W 200 mL (VANCOCIN) ciprofloxacin iv piggyback 400 mg in D5W 200 mL (CIPRO) PHENYLephrine iv infusion 10 mg in NaCl 0.9% 250 mL (TIFFANIE-SYNEPHRINE) Problem List: PONV (postoperative nausea and vomiting) [R11.2, Z98.890] Essential hypertension [I10] Gastroesophageal reflux disease without esophagitis [K21.9] Postoperative hypothyroidism [E89.0] History of breast cancer [Z85.3] Depression [F32.9] Impingement syndrome of right shoulder [M75.41] Tear of right rotator cuff [M75.101] Diabetes (HCC) [E11.9] Allergies: Morphine Oxycodone Penicillins Propoxyphene Date Verified: 02/09/20 Lab Values Lab Value Units Date High Low POTA* 3.6 mmol/L 01/29/2020 5.1 3.7 SANCHO* 36.4 % 01/29/2020 46.0 36.0 No progress notes entered within the past 30 days [facility] ANES Bernie 10-06-2019 ANES POST HNO ID: [id number] Author: Amadeo Noe Service: Anesthesiology Author Type: Anesthesiologist Type: Anesthesia PostOp Filed: 10/06/2019 1:15 PM Note Text: POST ANESTHESIA EVALUATION NOTE SERVICE DATE: 10/06/2019 SERVICE TIME: 1:15 PM : 1945 Vitals: 10/06/19 0859 10/06/19 1224 Temp: 36.6 ?C (97.9 ?F) 36.6 ?C (97.9 ?F) 10/06/19 1045 10/06/19 1224 10/06/19 1230 10/06/19 1245 BP: 129/63 135/61 135/57 129/63 10/06/19 1045 10/06/19 1224 10/06/19 1230 10/06/19 1245 Pulse: 69 88 82 69 10/06/19 1045 10/06/19 1224 10/06/19 1230 10/06/19 1245 Resp: 16 14 16 20 10/06/19 1045 10/06/19 1224 10/06/19 1230 10/06/19 1245 SpO2: 100% 100% 100% 100% Validated Vital Signs: Yes POST ANES STATUS: No apparent anesthetic complications. The patient is appropriately hydrated with stable respiratory and cardiovascular status. Patient has safe and adequate airway control. The patient has appropriate pain relief and no significant post operative nausea or vomiting. The patient has achieved baseline mental status. Intra-Operative Events: No Significant Anesthesia Events Further assessment by Anesthesia Service: None Other Remarks: SIGNATURE: Amadeo Noe MD PATIENT NAME: Rojelio Arambula DATE: October 06, 2019 TIME: 1:15 PM PAGER/CONTACT #: [facility] ANES PREOPon 10-06-2019 ANES PREOP HNO ID: [id number] Author: Amadeo Noe Service: Anesthesiology Author Type: Anesthesiologist Type: Anesthesia PreOp Filed: 10/06/2019 9:58 AM Note Text: ANESTHESIOLOGY DAY OF SURGERY NOTE SERVICE DATE: 10/06/2019 SERVICE TIME: 9:03 AM : 1945 Procedure(s) (LRB): ARTHROSCOPY SHOULDER WITH SUBACROMIAL DECOMPRESSION (Right) ARTHROSCOPY SHOULDER W/ DEBRIDEMENT LIMITED (Right) Surgeon(s): Faizan Parrish Estimated body mass index is 30.99 kg/m? as calculated from the following: Height as of 12/16/18: 154.9 cm (5' 1). Weight as of 12/16/18: 74.4 kg (164 lb). Most recent hematocrit and potassium results: Hematocrit 26.7 12/17/2018 Potassium 3.5 12/17/2018 ANES DOS/PREOP NOTE: Vitals: There were no vitals filed for this visit. ACTIVE PROBLEM LIST Ponv (Postoperative Nausea and Vomiting) Essential Hypertension Gastroesophageal Reflux Disease Without Esophagitis Postoperative Hypothyroidism History of Breast Cancer Depression Impingement Syndrome of Right Shoulder PAST MEDICAL HISTORY Diagnosis Date - Anxiety - Arthritis - Breast cancer (HCC) right - Breast cancer (HCC) 2011 right breast / radiation treatment - Depression 12/10/2018 - Gastroesophageal reflux disease without esophagitis 12/10/2018 - History of breast cancer 12/10/2018 - Hypertension - Kidney stones - Meniere's disease 2009 treated with a patch - PONV (postoperative nausea and vomiting) 12/10/2018 - 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 - Vertigo PAST SURGICAL HISTORY Procedure Laterality Date - PAST SURGICAL HISTORY OF 2011 right breast lumpectomy - PAST SURGICAL HISTORY OF 2004 right bunionectomy - PAST SURGICAL HISTORY OF bowel resction 1971-endometriosis - PAST SURGICAL HISTORY OF 2005 lithotripsy - PAST SURGICAL HISTORY OF thyroidectomy - TOTAL ABDOM HYSTERECTOMY 1971 FAMILY HISTORY Problem Relation Age of Onset - other (heart disease) Father - Diabetes Son - Cancer Mother lung and bone Social History: Social History Tobacco Use - Smoking status: Never Smoker - Smokeless tobacco: Never Used Substance Use Topics - Alcohol use: Yes Comment: 2-3 glasses wine per month - Drug use: No No current facility-administered medications on file prior to encounter. Current Outpatient Medications on File Prior to Encounter Medication Sig - acetaminophen (TYLENOL) 500 mg tablet Take 2 tablets by mouth every 8 hours. Do not exceed more than 3000 mg of Tylenol per 24 hour period - ascorbic acid, vitamin C, (VITAMIN C) 500 mg tablet Take 1 tablet by mouth twice daily with meals. - Levothyroxine 75 mcg cap Take by mouth. - sertraline (ZOLOFT) 100 mg tablet Take 100 mg by mouth once daily. - lisinopril (ZESTRIL, PRINIVIL) 20 mg tablet Take 1 tablet by mouth once daily. - hydrochlorothiazide (HYDRODIURIL, ESIDRIX) 12.5 mg tablet Take 1 tablet by mouth once daily. - aspirin, enteric coated (ASPIRIN, ENTERIC COATED) 81 mg EC tablet Take 1 tablet by mouth twice daily for 28 days. - meloxicam (MOBIC) 7.5 mg tablet Take 1 tablet by mouth once daily. Take with breakfast - ondansetron (ZOFRAN) 4 mg tablet Take 1 tablet by mouth every 8 hours as needed. - pantoprazole DR (PROTONIX) 40 mg tablet Take 40 mg by mouth once daily. - aluminum AND magnesium hydroxide-simethicone (MAALOX PLUS EXTRA STRENGTH) 400-400-40 mg/5 mL suspension Take 30 mL by mouth every 6 hours as needed. Current Facility-Administered Medications Medication Dose Route Frequency Provider Last Rate Last Dose - lidocaine 10 mg/mL (1 %) 1-2 mg injection (XYLOCAINE) 0.1-0.2 mL INTRADERMAL PRN Faizan Parrish - lactated ringers infusion 5-30 mL/hr INTRAVENOUS CONTINUOUS Faizan Parrish - clindamycin iv piggyback 600 mg in D5W 50 mL (CLEOCIN) 600 mg INTRAVENOUS Bingo Checker to OR Faizan Parrish Allergies: ALLERGIES Allergen Reactions - Morphine Swelling Rash, edema - Penicillins Rash - Propoxyphene nausea DOS EXAM: Adequate NPO status: Yes EKG NSR Anesthetic risks, benefits, alternatives, personnel and consent discussed: Yes Patient agrees to proceed: Yes Previous Anesthesia: No history of adverse event. Airway Assessment: MP 3; Neck ROM: Full ROM without neurologic symptoms; Airway Evaluation: Short Neck, Thick neck and Small Mouth Opening Dentition: Poor dentition removable upper partial Additional Physical Exam: Lungs: Patient health status unchanged since recent history and physical. See history and physical for exam findings. Cardiac: Patient health status unchanged since recent history and physical. See history and physical for exam findings. Additional Pertinent Findings: N/A Blood Products: Not anticipated for this procedure. Anesthetic Plan: General, Standard ASA Monitors Pain Management Plan: Parenteral or Oral and Peripheral Nerve Block ASA Class: 3 Other Medical Problems: None Chronic Beta Britney medication administered within 24 hours: N/A I have interviewed and examined the patient. I have reviewed the medical record and/or the pre-anesthesia evaluation, pertinent labs, and test results. Significant changes in the patient's condition since the History and Physical, not otherwise documented in primary service progress notes: No This contains updated information obtained within 48 hours of Surgery/Procedure. SIGNATURE: Lauren Vasquez DO PATIENT NAME: Rojelio Arambula DATE: October 06, 2019 TIME: 9:03 AM CSN: [id number] Staff Note I have seen this patient and reviewed pertinent medical records. I agree with the resident programs assistant's assessment and plan. Will proceed with anesthetic technique stated. Amadeo Noe MD October 06, 2019 9:58 AM [facility] HISTORY PHYSICALon 0 HISTORY PHYSICAL HNO ID: [id number] Author: Faizan Parrish Service: Orthopaedic Surgery Author Type: Physician Type: HANDP Filed: 10/06/2019 11:12 AM Note Text: UPDATED HISTORY AND PHYSICAL EXAMINATION SERVICE DATE: 10/06/2019 SERVICE TIME: 11:02 AM PHYSICAL EXAM MUST BE COMPLETED ON ADMISSION The History and Physical (completed in the past 30 days) has been reviewed and the patient has been examined. The contents accurately reflect the patient's condition with the following additions or revisions since the HANDP was completed. Examination indicates no changes. This HANDP can be found in the Electronic Medical Record dated 09-18-19. SIGNATURE: Faizan Parrish MD PATIENT NAME: Rojelio Arambula DATE: October 06, 2019 TIME: 11:01 AM PAGER: The patient was offered a surgery/procedure at a [facility] facility. The surgeon/proceduralist and patient have discussed in detail the risk of exposure to and/or potential harm posed by the COVID-19 virus with having a surgery/procedure at this time versus the risk of delaying the surgery/procedure. It is not possible to know either the risk of delaying the surgery or procedure or chance of getting an infection with perfect accuracy, but a joint decision was made between the patient and the surgeon/proceduralist to proceed at this time with the scheduled surgery/procedure as indicated on the consent form. We are operating on the right shoulder [facility] NURSING PROGon 10-06-2019 NURSING PROG HNO ID: [id number] Author: Erickson WillisRn) LAXMI Woodward Service: ? Author Type: Registered Nurse Type: Nursing Progress Note Filed: 10/06/2019 3:13 PM Note Text: Nursing Progress Note Patient Name: Rojelio Arambula Patient Location: [facility] OR POOL/[facility] OR POOL Daily Note: 1429 Pt in Ph 2. VSS on RA. ID checked x2, pt alert and awake. No c/o pain or nausea. RUE neurovascular checks intact, pt states numbness d/t peripheral nerve block. Fine motor movement observed. Tolerating PO intake sparkle marlin at this time. 1505 Pt meets discharge criteria. VSS on RA. No c/o pain or nausea. Neurovascular checks remain unchanged. Pt ambulated hallway to restroom, stated able to void. Reviewed discharge instructions with pt and daughter. Verbalizes understanding. This note was completed by: Erickson Woodward RN [facility] NURSING PROG HNO ID: [id number] Author: Donna Toro) LAXMI Beltran Service: ? Author Type: Registered Nurse Type: Nursing Progress Note Filed: 10/06/2019 2:13 PM Note Text: Nursing Progress Note Patient Name: Rojelio Arambula Patient Location: [facility] OR POOL/[facility] OR POOL 1300 Assumed care of patient from Marcie RN, patient alert and oriented x 3, patient denies pain, oxygen at 6L via SFM, surgical dressing to right shoulder dry and intact, patient with movement to fingers, numbness in shoulder, anesthesia aware of slight droop to right eye following peripheral nerve block, sequentials intact bilaterally. 1310 Transitioned to room air. 1411 PACU discharge criteria met, patient denies pain, dressing to surgical site dry and intact. This note was completed by: Donna Beltran RN [id number] Author: Rojelio (Rn) LAXMI Lima Service: ? Author Type: Registered Nurse Type: Nursing Progress Note Filed: 10/06/2019 12:55 PM Note Text: Nursing Progress Note Patient Name: Rojelio Arambula Patient Location: [facility] OR POOL/[facility] OR POOL Daily Note: patient arrived to pacu, vss, when aroused A+OX3 and ID checked x2, denies pain and nausea, right shoulder dressing dry with ice pack applied, right hand neurovascular checks are intact see NPR, right hand fine movement and intact sensation, right shoulder is numb due to nerve block, cough and deep breathing encouraged, bilateral sequentials are on, right sling on 1230 Dr Noe at the bedside 1240 Dr Noe notified of right eye droopiness 1250 report to Donna HAIR This note was completed by: Rojelio Lima RN [facility] NURSING PROG HNO ID: [id number] Author: Chris (Rn) LAXMI Arevalo Service: Nursing Author Type: Registered Nurse Type: Nursing Progress Note Filed: 10/06/2019 10:39 AM Note Text: 1040 Patient report given to Geneva Lopez RN [facility] NURSING PROG HNO ID: [id number] Author: Chris WillisRn) LAXMI Arevalo Service: Nursing Author Type: Registered Nurse Type: Nursing Progress Note Filed: 10/06/2019 10:21 AM Note Text: Right ISB SS Dr. Noe Patient verbalized her understanding of the nerve block procedure [facility] OPERATIVE NOon 10-06-2019 OPERATIVE NO HNO ID: [id number] Author: Faizan Parrish Service: Orthopaedic Surgery Author Type: Physician Type: Operative Report Filed: 10/17/2019 6:58 AM Note Text: [facility] - Operative Report ROJELIO ARAMBULA : 1945 AGE: 74. SEX: F PATIENT TYPE: A HOSP [facility] [place] [facility]ATION: [facility] ATTENDING PHYSICIAN: Faizan Parrish MD CSN NUMBER: [id number] DATE OF SURGERY/PROCEDURE: 10/06/2019 INCISION/PROCEDURE START TIME: 11:47 AM INCISION CLOSE/PROCEDURE END TIME: 12:09 PM PREOPERATIVE DIAGNOSIS: Right shoulder impingement with rotator cuff tendinitis. POSTOPERATIVE DIAGNOSIS: Right shoulder impingement with rotator cuff tendinitis. SURGEON: Faizan Parrish MD TOP TRIMMER: RADHA Steen. SURGERY/PROCEDURE: Right shoulder arthroscopy with subacromial decompression, also exam under anesthesia. ANESTHESIA: General INDICATIONS FOR SURGERY: The patient has been having ongoing pain and discomfort of the right shoulder that has not gotten better with conservative management. I discussed with patient preoperatively the details of risks and benefits of proceeding with surgery. Patient understood and wished to proceed. Risks included but were not exclusive to infection, blood clot, anesthetic complications, ongoing pain, need for further surgery, etc. DESCRIPTION OF PROCEDURE: Patient was seen by me in the preop area. I did identify the proper limb, proper procedure, and proper patient. I marked the limb. Patient was then taken to the operating room. Once in the operating room, time-in and time- out was called. Exam under anesthesia revealed full range of motion of the shoulder and a stable shoulder. We then placed the patient in lateral decubitus position after the patient was put to sleep. Patient call was utilized while all bony prominences were padded and with patient in lateral decubitus position, prepping and draping were performed. We then injected the glenohumeral articulation with saline. We then proceeded with arthroscopy. The glenohumeral articulation was within normal limits. The subacromial space was examined. Extensive bursa was noted. This was excised. We then visualized a large subacromial bone spur. Using a second portal laterally, we placed the shaver and removed this. A smooth surface was obtained. We essentially tripled the space that was available. There was some superficial tearing of the rotator cuff, but no [id number] tears. We checked both with the lateral and the posterior portal and there was no tear that could be visualized. At this time, we irrigated the subacromial space and the shoulder. We then closed the portals with 3-0 Monocryl sutures subcutaneously and then used SureClose to close the skin. A sterile bandage was applied, and patient was taken to the recovery in stable condition after immobilizer was applied. Faizan Parrish MD [facility]:[id number] /[id number] cc: [facility] PT EDon 10-06-2019 PT ED HNO ID: [id number] Author: Erickson (Rn) LAXMI Woodward Service: ? Author Type: Registered Nurse Type: Patient Education Filed: 10/06/2019 3:19 PM Note Text: PATIENT EDUCATION TOPIC: PROCEDURE / SURGERY: Post-op Teaching: Med Administration, Symptom Management and Wound Care PATIENT NAME: Rojelio Arambula PATIENT LOCATION: [facility] OR POOL/[facility]G * READINESS TO LEARN COGNITIVE ABILITY: Alert and oriented MOTIVATION TO LEARN: Eager Interested FAMILY SUPPORT: High - Very involved in pt care INSTRUCTION PROVIDED TO: Patient and Daughter PATIENT LEARNS BEST BY: Individual Instruction Written Instruction - Hand-outs Verbal Instruction FACTORS AFFECTING LEARNING: None PHYSICAL LIMITATIONS AFFECTING LEARNING: None LEARNING RESPONSE DIAGNOSIS: ADULT: Right shoulder arthroscopy PATIENT/FAMILY RESPONSE: Verbalizes understanding of: INFECTION MANAGEMENT-Signs and symptoms of an infection and importance of contacting the physician MEDICAL REGIMEN-Importance of following prescribed medical regimen MEDICATION DOSE MISSED-Correct action to take if medication dose is missed MEDICATION PRESCRIBED-Accurate knowledge of prescribed medication prior to discharge MEDICATION ROUTE-Correct route for administration of the prescribed medication MEDICATION SIDE EFFECTS-Side effects associated with the medication that warrant a call to the physician PAIN MANAGEMENT-Effective strategies to manage pain in addition to pain medication POST-OPERATIVE INSTRUCTIONS-Correct actions to take to reduce postoperative complications METHOD OF INSTRUCTION: Individual instruction Written instruction - handouts Verbal instruction FOLLOW-UP PLAN: Patient instructed to call with any further issues INSTRUCTIONAL AIDS USED: NA SUPPLEMENTAL MATERIAL PROVIDED TO PATIENT: None REFERRAL (RECOMMENDATION): None Electronically Signed By: Erickson Woodward RN [facility] 09-18-2019 TAYLOR Telephone (PREANME) -------- ROJELIO ARAMBULA ([id number]) 1945 F Date Time Provider Department 09/18/19 JOYCE PETIT) PRERIAN During your visit today, we recorded the following information about you: Joyce Petit PA-C 09/18/2019 5:04 PM Signed Patient with recent HANDP week of 09/07/2019 with PCP. HANDP scanned in Epic from 07/2019 and PACC 01/2019. NO PACC needed. Instructions given with phone number for any questions. Joyce Petit PA-C 09/18/2019 5:03 PM Signed PATIENT PREOPERATIVE INSTRUCTIONS Dr. Parrish has scheduled you for your procedure at this surgery center: [facility]: [phone] -- [id number] [id number]. Please read below carefully for your personalized instructions. Arrival Time for Surgery: -You will receive a call from [facility] [place] the afternoon before surgery after 2:30 pm (or Saturday for Saturday surgery) for a scheduled arrival time. - If you have not heard by 4 pm, please contact [facility] at [phone]. Dietary Restrictions: - No solid food after midnight. - You may have 12 ounces of clear liquids (water, clear juices such as apple juice or gatorade, carbonated beverages, clear tea, black coffee, jello) until 2 hours before scheduled arrival at facility. Medications: Unless instructed differently below, stay on all of your medications until your surgery. Approved medications to take the morning of surgery with a sip of water: Take thyroid and sertraline (zoloft) - No diabetic medication the morning of surgery. If you start any new medications after today's visit, please contact the surgeon's office. Blood Thinning Medications: - Stop NSAIDS (Ibuprofen, Advil, Aleve, Motrin, Celebrex, Mobic, etc.) 10 days before surgery, as directed by your surgeon. - Stop Aspirin 10 days before surgery, as directed by your surgeon. - Stop Vitamin E, ALL multi-vitamins, herbals and dietary supplements 10 days before surgery. - You may take Tylenol (Acetaminophen) or any of your pain medications that do not contain aspirin or NSAIDS as needed. Important Reminders: - If you use CPAP/BIPAP, bring the machine with you to the surgery center. - If you are prescribed inhalers for breathing, continue using them. - Candy, mints, and tobacco products are NOT permitted the morning of surgery. - Hearing aids, dentures and glasses may be worn the morning of surgery. - NO jewelry, body piercings, makeup, hairpins or contacts are to be worn the day of surgery. If you develop symptoms such as a fever, cold, or flu, or have other changes to your health within TWO DAYS of scheduled surgery or the morning of surgery, please contact the surgery center above. Personal Belongings: -Please have photo ID and insurance cards. -If you do not have a copy of advance directives on file with us, please bring a copy with you on the day of surgery. - Leave ALL valuables and money at home or with family members. For Outpatient Procedures: - YOU MUST HAVE A RESPONSIBLE VENEER TAPER TAKE YOU HOME. A PAYABLE PROCESSOR OR MASSAGE THERAPIST CANNOT BE MADE A RESPONSIBLE VENEER TAPER. - We recommend that a responsible person stays with you overnight to take care of you. - You cannot stay in a hotel alone after outpatient surgery. You will not be permitted to have your surgery, if you do not have someone to take care of you. Arrival Time for Surgery: -You will receive a call from [facility] the afternoon before surgery after 2:30 pm (or Saturday for Saturday surgery) for a scheduled arrival time. - If you have not heard by 4 pm, please contact [facility] at [phone]. Please be aware that emergency situations arise, which may delay or change your surgical time. If this happens, we will notify you as soon as possible and regret any inconvenience. If you already have an Advance Directive, please fax a copy to [phone] or email to [email or web address] Scripped for it to be added to your chart. If you do not have an Advance Directive, you can find the appropriate form and more information at [email or web address]. We recommend that you complete the Advance Directive form found on the website and bring it with you the day of your surgery. It can be witnessed and scanned into your chart that day. Joyce Petit PA-C Allergies As of Date: 09/18/2019 Noted Allergy Reaction MORPHINE 12/06/2008 7 - Swelling Comments: Rash, edema PENICILLINS 12/06/2008 2 - Rash PROPOXYPHENE 12/06/2008 Comments: nausea Date Reviewed: 12/17/2018 Reviewed by: Nasrin (Rn) LAXMI Catherine - Fully Assessed Reason for Visit: Follow Up [171] Prescriptions as of 09/18/2019 Sig: METFORMIN 500 MG TABLET Take 500 mg by mouth daily wi* ACETAMINOPHEN 500 MG TABLET Take 2 tablets by mouth every* ASCORBIC ACID (VITAMIN C) 500* Take 1 tablet by mouth twice * MELOXICAM 7.5 MG TABLET Take 1 tablet by mouth once d* ONDANSETRON HCL 4 MG TABLET Take 1 tablet by mouth every * PANTOPRAZOLE 40 MG TABLET,DEL* Take 40 mg by mouth once malena* LEVOTHYROXINE 75 MCG CAPSULE Take by mouth. SERTRALINE 100 MG TABLET Take 100 mg by mouth once tate* ALUMINUM-MAG HYDROXIDE-SIMETH* Take 30 mL by mouth every 6 h* LISINOPRIL 20 MG TABLET Take 1 tablet by mouth once d* HYDROCHLOROTHIAZIDE 12.5 MG T* Take 1 tablet by mouth once d* ASPIRIN 81 MG TABLET,DELAYED * Take 1 tablet by mouth twice * Problem List As Of Date 09/18/2019 Noted Resolved Arthritis of left knee [M17.12] 07/15/2012 07/18/2012 PONV (postoperative nausea and vomiting) [R11.2*12/10/2018 Essential hypertension [I10] 12/10/2018 More... Gastroesophageal reflux disease without esophag*12/10/2018 More... Postoperative hypothyroidism [E89.0] 12/10/2018 More... History of breast cancer [Z85.3] 12/10/2018 More... Depression [F32.9] 12/10/2018 S/P TKR (total knee replacement) [Z96.659] 12/16/2018 12/17/2018 Other instructions from your clinician: PATIENT PREOPERATIVE INSTRUCTIONS Dr. Parrish has scheduled you for your procedure at this surgery center: [facility]: [phone] -- [address] [address]. Please read below carefully for your personalized instructions. Arrival Time for Surgery: -You will receive a call from [facility] the afternoon before surgery after 2:30 pm (or Saturday for Saturday surgery) for a scheduled arrival time. - If you have not heard by 4 pm, please contact [facility] at [phone]. Dietary Restrictions: - No solid food after midnight. - You may have 12 ounces of clear liquids (water, clear juices such as apple juice or gatorade, carbonated beverages, clear tea, black coffee, jello) until 2 hours before scheduled arrival at facility. Medications: Unless instructed differently below, stay on all of your medications until your surgery. Approved medications to take the morning of surgery with a sip of water: Take thyroid and sertraline (zoloft) - No diabetic medication the morning of surgery. If you start any new medications after today's visit, please contact the surgeon's office. Blood Thinning Medications: - Stop NSAIDS (Ibuprofen, Advil, Aleve, Motrin, Celebrex, Mobic, etc.) 10 days before surgery, as directed by your surgeon. - Stop Aspirin 10 days before surgery, as directed by your surgeon. - Stop Vitamin E, ALL multi-vitamins, herbals and dietary supplements 10 days before surgery. - You may take Tylenol (Acetaminophen) or any of your pain medications that do not contain aspirin or NSAIDS as needed. Important Reminders: - If you use CPAP/BIPAP, bring the machine with you to the surgery center. - If you are prescribed inhalers for breathing, continue using them. - Candy, mints, and tobacco products are NOT permitted the morning of surgery. - Hearing aids, dentures and glasses may be worn the morning of surgery. - NO jewelry, body piercings, makeup, hairpins or contacts are to be worn the day of surgery. If you develop symptoms such as a fever, cold, or flu, or have other changes to your health within TWO DAYS of scheduled surgery or the morning of surgery, please contact the surgery center above. Personal Belongings: -Please have photo ID and insurance cards. -If you do not have a copy of advance directives on file with us, please bring a copy with you on the day of surgery. - Leave ALL valuables and money at home or with family members. For Outpatient Procedures: - YOU MUST HAVE A RESPONSIBLE VENEER TAPER TAKE YOU HOME. A PAYABLE PROCESSOR OR MASSAGE THERAPIST CANNOT BE MADE A RESPONSIBLE VENEER TAPER. - We recommend that a responsible person stays with you overnight to take care of you. - You cannot stay in a hotel alone after outpatient surgery. You will not be permitted to have your surgery, if you do not have someone to take care of you. Arrival Time for Surgery: -You will receive a call from [facility] the afternoon before surgery after 2:30 pm (or Saturday for Saturday surgery) for a scheduled arrival time. - If you have not heard by 4 pm, please contact [facility] at [phone]. Please be aware that emergency situations arise, which may delay or change your surgical time. If this happens, we will notify you as soon as possible and regret any inconvenience. If you already have an Advance Directive, please fax a copy to [phone] or email to [email or web address] Scripped for it to be added to your chart. If you do not have an Advance Directive, you can find the appropriate form and more information at [email or web address]. We recommend that you complete the Advance Directive form found on the website and bring it with you the day of your surgery. It can be witnessed and scanned into your chart that day. Joyce Petit PA-C Encounter Status:Closed by JOYCE PETIT PA-C on 09/18/19 [facility] 08-04-2019 HOSP Patient:Kristie Arambula MRN: Height:5' 0(1.524 m) Weight:No patient weight recorded within the last 30 days. Outpatient Medications as of 10/06/19: metFORMIN (GLUCOPHAGE) 500 mg tablet acetaminophen (TYLENOL) 500 mg tablet ascorbic acid, vitamin C, (VITAMIN C) 500 mg tablet aspirin, enteric coated (ASPIRIN, ENTERIC COATED) 81 mg EC tablet meloxicam (MOBIC) 7.5 mg tablet ondansetron (ZOFRAN) [address] (PROTONIX) 40 mg tablet Levothyroxine 75 mcg cap sertraline (ZOLOFT) 100 mg tablet aluminum AND magnesium hydroxide-simethicone (MAALOX PLUS EXTRA STRENGTH) 400-400-40 mg/5 mL suspension lisinopril (ZESTRIL, PRINIVIL) 20 mg tablet hydrochlorothiazide (HYDRODIURIL, ESIDRIX) 12.5 mg tablet Admission/Clinic Administered Medications as of 10/06/19: lidocaine 10 mg/mL (1 %) 1-2 mg injection (XYLOCAINE) lactated ringers infusion clindamycin iv piggyback 600 mg in D5W 50 mL (CLEOCIN) midazolam (PF) 2 mg injection (VERSED) Problem List: PONV (postoperative nausea and vomiting) [R11.2, Z98.890] Essential hypertension [I10] Gastroesophageal reflux disease without esophagitis [K21.9] Postoperative hypothyroidism [E89.0] History of breast cancer [Z85.3] Depression [F32.9] Impingement syndrome of right shoulder [M75.41] Allergies: Morphine Penicillins Propoxyphene Date Verified: 10/06/19 Lab Values No results within the last 30 days for the following basenames: K,HCT Progress Notes (PRE [facility]): Joyce Petit PA-C 09/18/2019 5:04 PM Signed Patient with recent HANDP week of 09/07/2019 with PCP. HANDP scanned in Epic from 07/2019 and PACC 01/2019. NO PACC needed. Instructions given with phone number for any questions. Joyce Petit PA-C 09/18/2019 5:03 PM Signed PATIENT PREOPERATIVE INSTRUCTIONS Dr. Parrish has scheduled you for your procedure at this surgery center: [facility]: [phone] -- [address] [address]. Please read below carefully for your personalized instructions. Arrival Time for Surgery: -You will receive a call from [facility] the afternoon before surgery after 2:30 pm (or Saturday for Saturday surgery) for a scheduled arrival time. - If you have not heard by 4 pm, please contact [facility] at [phone]. Dietary Restrictions: - No solid food after midnight. - You may have 12 ounces of clear liquids (water, clear juices such as apple juice or gatorade, carbonated beverages, clear tea, black coffee, jello) until 2 hours before scheduled arrival at facility. Medications: Unless instructed differently below, stay on all of your medications until your surgery. Approved medications to take the morning of surgery with a sip of water: Take thyroid and sertraline (zoloft) - No diabetic medication the morning of surgery. If you start any new medications after today's visit, please contact the surgeon's office. Blood Thinning Medications: - Stop NSAIDS (Ibuprofen, Advil, Aleve, Motrin, Celebrex, Mobic, etc.) 10 days before surgery, as directed by your surgeon. - Stop Aspirin 10 days before surgery, as directed by your surgeon. - Stop Vitamin E, ALL multi-vitamins, herbals and dietary supplements 10 days before surgery. - You may take Tylenol (Acetaminophen) or any of your pain medications that do not contain aspirin or NSAIDS as needed. Important Reminders: - If you use CPAP/BIPAP, bring the machine with you to the surgery center. - If you are prescribed inhalers for breathing, continue using them. - Candy, mints, and tobacco products are NOT permitted the morning of surgery. - Hearing aids, dentures and glasses may be worn the morning of surgery. - NO jewelry, body piercings, makeup, hairpins or contacts are to be worn the day of surgery. If you develop symptoms such as a fever, cold, or flu, or have other changes to your health within TWO DAYS of scheduled surgery or the morning of surgery, please contact the surgery center above. Personal Belongings: -Please have photo ID and insurance cards. -If you do not have a copy of advance directives on file with us, please bring a copy with you on the day of surgery. - Leave ALL valuables and money at home or with family members. For Outpatient Procedures: - YOU MUST HAVE A RESPONSIBLE VENEER TAPER TAKE YOU HOME. A PAYABLE PROCESSOR OR MASSAGE THERAPIST CANNOT BE MADE A RESPONSIBLE VENEER TAPER. - We recommend that a responsible person stays with you overnight to take care of you. - You cannot stay in a hotel alone after outpatient surgery. You will not be permitted to have your surgery, if you do not have someone to take care of you. Arrival Time for Surgery: -You will receive a call from [facility] the afternoon before surgery after 2:30 pm (or Saturday for Saturday surgery) for a scheduled arrival time. - If you have not heard by 4 pm, please contact [facility] at [phone]. Please be aware that emergency situations arise, which may delay or change your surgical time. If this happens, we will notify you as soon as possible and regret any inconvenience. If you already have an Advance Directive, please fax a copy to [phone] or email to [email or web address] Scripped for it to be added to your chart. If you do not have an Advance Directive, you can find the appropriate form and more information at [email or web address]. We recommend that you complete the Advance Directive form found on the website and bring it with you the day of your surgery. It can be witnessed and scanned into your chart that day. Joyce Petit PA-C [facility] Vital Signs Date Time Vital Sign Value Performing Clinician Joelle valentine 09-10-2024 10:23-0400 Body height 154.94 cm Marcos Garcia MD Work Phone: [facility] 09-10-2024 10:23-0400 Body mass index (BMI) [Ratio] 25.9 kg/m2 Marcos Garcia MD Work Phone: 6(469)[phone] [address] 09-10-2024 10:23-0400 Body weight 62.14 kg Marcos Garcia MD Work Phone: [facility] 09-03-2024 09:32-0400 Body height 154.94 cm Marcos Garcia MD Work Phone: 4(272)282-731093 [place] [address] 09-03-2024 09:32-0400 Body mass index (BMI) [Ratio] 26.4 kg/m2 Marcos Garcia MD Work Phone: 5([phone])825-142193 [place] [address] 09-03-2024 09:32-0400 Body weight 63.5 kg Marcos Garcia MD Work Phone: 0([phone])[phone] [address] 09-02-2024 13:34-0400 Body height 154.94 cm Marcos Garcia MD Work Phone: 6(732)081-717229 [address] 09-02-2024 13:34-0400 Body mass index (BMI) [Ratio] 25.7 kg/m2 Marcos Garcia MD Work Phone: 7(227)[phone] [address] 09-02-2024 13:34-0400 Body temperature 98.2 [degF] Marcos Garcia MD Work Phone: 4(037)[phone] [place] [address] 09-02-2024 13:34-0400 Body weight 61.68 kg Marcos Garcia MD Work Phone: 1(197)659-509352 [place] [address] 09-02-2024 13:34-0400 Diastolic blood pressure 66 mm[Hg] Marcos Garcia MD Work Phone: 4(881)230-196029 [address] 09-02-2024 13:34-0400 Heart rate 84 /min Marcos Garcia MD Work Phone: 4(373)458-193193 [place] [address] 09-02-2024 13:34-0400 Respiratory rate 15 /min Marcos Garcia MD Work Phone: 1(476)933-751893 [place] [address] 09-02-2024 13:34-0400 SaO2% (BldA) [Mass fraction] 96 % Marcos Garcia MD Work Phone: [phone])557-933893 [place] [address] 09-02-2024 13:34-0400 Systolic blood pressure 120 mm[Hg] Marcos Garcia MD Work Phone: [facility] 10-26-2021 10:33-0400 Diastolic blood pressure 65 mm[Hg] Ang Adames MD Work Phone: [facility] [employer] 10-26-2021 10:33-0400 Heart rate 70 /min Ang Adames MD Work Phone: [facility] 10-26-2021 10:33-0400 Respiratory rate 18 /min Ang Adames MD Work Phone: [facility] [employer] 10-26-2021 10:33-0400 SaO2% (BldA) [Mass fraction] 100 % Ang Adames MD Work Phone: [facility] [employer] 10-26-2021 10:33-0400 Systolic blood pressure 139 mm[Hg] Ang Adames MD Work Phone: [facility] 10-26-2021 09:52-0400 Body temperature 97.2 [degF] Ang Adames MD Work Phone: [facility] [employer] 10-26-2021 07:06-0400 Body height 154.9 cm Ang Adames MD Work Phone: [facility] 10-26-2021 07:06-0400 Body mass index (BMI) [Ratio] 28.53 kg/m2 Ang Adames MD Work Phone: [facility] [employer] 10-26-2021 07:06-0400 Body weight 68.49 kg Ang Adames MD Work Phone: [facility] [employer] 08-28-2021 13:17-0400 Diastolic blood pressure 66 mm[Hg] Justin Cheatham MD Work Phone: [facility] 08-28-2021 13:17-0400 Heart rate 77 /min Justin Cheatham MD Work Phone: [facility] 08-28-2021 13:17-040 Respiratory rate 20 /min Justin Cheatham MD Work Phone: [facility] 08-28-2021 13:040 SaO2% (BldA) [Mass fraction] 98 % Jusitn Cheatham MD Work Phone: [facility] 08-28-2021 13:040 Systolic blood pressure 135 mm[Hg] Justin Cheatham MD Work Phone: [facility] Encounters Encounter Date Encounter Type Care Provider Facility Start: 09-10-2024 End: 09-10-[address] Justin Romero MD -[facility] Start: 09-10-2024 End: 09-10-2024 ambulatory Marcos Garcia MD Work Phone: [facility] Work Phone: Start: 09-03-2024 End: 09-03-2024 Patient encounter procedure Melody Loya [employer] -[facility] Work Phone: Start: 09-03-2024 End: 09-03-2024 ambulatory Marcos Garcia MD Work Phone: [facility] Work Phone: Start: 09-02-2024 End: 09-02-2024 Patient encounter procedure Rosas GARCIA -[facility] Work Phone: Start: 09-02-2024 End: 09-02-2024 ambulatory Marcos Garcia MD Work Phone: [facility] Work Phone: Start: 09-02-2024 End: 09-02-2024 ambulatory Rosas GARCIA Facility:[facility] Start: 04-13-2024 End: 04-13-2024 ambulatory aMrcos Garcia Facility:[facility] Start: 03-30-2024 End: 03-30-2024 ambulatory Chalon Jose Facility:[facility] Start: 12-27-2023 End: 12-27-2023 ambulatory Chalon Jose Facility:[facility] Start: 12-20-2023 End: 12-20-2023 ambulatory Marcos Garcia Facility:[facility] Start: 01-08-2022 End: 01-08-2022 Subsequent hospital visit by physician Rey Loya Work Phone: Radiology Start: 12-14-2021 End: 12-15-2021 ambulatory TIO PEREZ Facility:[facility] Start: 10-26-2021 End: 10-26-2021 ambulatory TIO PEREZ [facility] Start: 10-26-2021 End: 10-26-2021 Subsequent hospital visit by physician Ang Adames MD Work Phone: [facility] Comment on above: Diverticulitis; Anemia, blood loss Start: 08-28-2021 End: 08-28-2021 ambulatory JUSTIN CHEATHAM Facility:[facility] Start: 08-28-2021 End: 08-28-2021 Patient encounter procedure Justin Cheatham MD Work Phone: Pulmonary Medicine Comment on above: Lung nodules (Primar y Dx); COVID-19; Nonsmoker Start: 04-03-2021 End: 04-03-2021 ambulatory TIO PEREZ [facility] Start: 03-30-2021 End: 03-30-2021 ambulatory TIO PEREZ Facility:[facility] Start: 03-30-2021 End: 03-30-2021 ambulatory JUSTIN CHEATHAM [facility] Start: 02-27-2021 End: 02-27-2021 ambulatory TIO PEREZ [facility] Procedures Date Procedure Procedure Detail Performing Clinician Start: 09-02-2024 Plain X-ray of finger C tomas Garcia MD Work Phone: Start: 01-08-2022 Bone &/joint imaging whole body [facility] Provider Start: 10-26-2021 Level iv surg pathol ogy gross&microscopic exam TIO PEREZ Start: 10-26-2021 Blood count complete automated TIO PEREZ Start: 10-26-2021 VERIFY INFORMED CONSENT TIO PEREZ Start: 10-26-2021 End: 08-04-2022 Gluc bld gluc mntr dev cleared fda spec home use Unknown Provider Result Plan of Treatment Date Care Activity Detail Author Start: 09-10-2024 Plain X-ray of finger Finger(s) Min 2 Views [facility] Start: 09-10-2024 XR Finger GE 2 Views [facility] Start: 09-02-2024 Patient referral [facility] Work Phone: Start: 11-23-2021 Influenza vaccination [facility] Start: 10-26-2021 End: 10-26-2021 Colonoscopy flx dx w/collj spec when pfrmd COLONOSCOPY DIAGNOSTIC Diverticulitis Anemia, blood loss 10/26/2021 8:44 AM EDT [facility] Start: 10-26-2021 End: 10-26-2021 Egd transoral biopsy single/multiple EGD ESOPHAGOGASTRODUODENOSCOPY Diverticulitis Anemia, blood loss 10/26/2021 8:44 AM EDT [facility] Start: 08-29-2021 COVID-19 VACCINE (5 - Booster for Pfizer series) COVID-19 VACCINE (5 - Booster for Pfizer series) [facility] Start: 03-25-2021 ADVANCE DIRECTIVE DISCUSSION ADVANCE DIRECTIVE DISCUSSION [facility] Start: 06-10-2019 Hemoglobin A1c/Hemoglobin.total in Blood HBA1C [facility] Start: 07-16-2013 Pneumococcal 65+ years Vaccine (2 - PCV) Pneumococcal 65+ years Vaccine (2 - PCV) [facility] Start: 07-16-2013 PNEUMOCOCCAL: 65+ (2 - PCV) PNEUMOCOCCAL: 65+ (2 - PCV) [facility] Start: 2010 BONE DENSITY BONE DENSITY [facility] Start: 2000 Screening for osteoporosis DEXA (modify frequency per FRAX score) [facility] Start: 10-06-1995 Shingles vaccine (1 of 2) Shingles vaccine (1 of 2) [facility] Start: 10-06-1995 SHINGRIX VACCINE (1 of 2) SHINGRIX VACCINE (1 of 2) [facility] Start: 1990 COLOGUARD (FIT-DNA) COLOGUARD (FIT-DNA) [facility] Start: 1990 Colonoscopy COLONOSCOPY [facility] Start: 1990 COLORECTAL CANCER SCREENING COLORECTAL CANCER SCREENING [facility] Start: [address] COLONOGRAPHY [facility] Start: 1990 FECAL OCCULT BLOOD FECAL OCCULT BLOOD [facility] Start: 1990 SIGMOIDOSCOPY SIGMOIDOSCOPY [facility] Start: 1964 DTaP/Tdap/Td vaccine (1 - Tdap) DTaP/Tdap/Td vaccine (1 - Tdap) [facility] Start: 1964 Urine microalbumin profile DTAP,TDAP,TD (1 - Tdap) [facility] Start: 10-06-1963 ANNUAL PCP TEAM CHRONIC DISEASE VISIT ANNUAL PCP TEAM CHRONIC DISEASE VISIT [facility] Start: 10-06-1963 BP CONTROLLED (<130/80) BP CONTROLLED (<130/80) [facility] Start: 10-06-1963 Hepatitis B surface antibody level LDL CHOLESTEROL [facility] Start: 10-06-1963 HEPATITIS C SCREENING HEPATITIS C SCREENING [facility] Start: 10-06-1963 Hepatitis C screening Hepatitis C screen [facility] Start: 1957 Depression Screen Depression Screen [facility] Start: 10-06-1955 3 comp foot exam completed DIABETIC FOOT EXAM [facility] Start: 10-06-1955 Hepatitis B screening URINE ALBUMIN:CREATININE RATIO [facility] Start: 10-06-1955 Hepatitis C antibody, confirmatory test DILATED RETINAL EXAM [facility] Start: 10-06-1955 Lipid panel Lipids [facility] Start: 04-07-1946 COVID-19 Vaccine (#1) COVID-19 Vaccine (#1) [facility] Start: 1945 Annual Wellness Visit (AWV) Annual Wellness Visit (AWV) [facility] [employer] End: 10-26-2021 Blood glucose - POCT Blood glucose - POCT Point o f Care Testing Routine One Time for 1 Occurrences starting 10/26/2021 until 10/26/2021 [employer] Work Phone: Comment on above: One Time for 1 Occurrences starting 06/2021 until 10/26/2021 Patient referral [facility] Work Phone: Surgical Pathology Surgical Path ology Lab Routine Diverticulitis Anemia, blood loss Release Upon Ordering for 1 Occurrences starting 10/26/2021 [facility] Work Phone: Comment on above: Release Upon Ordering for 1 Occurrences starting 10/26/2021 Immunizations Immunization Date Immunization Notes Care Provider Fa cility 12-17-2018 influenza, high dose seasonal, preservative-free Justin Cheatham MD Work Phone: [facility] Work Phone: 07-16-2012 pneumococcal polysaccharide vaccine, 23 valent Justin Cheatham MD Work Phone: [facility] Payers Date Payer Category Payer Self-pay 2017 Private Health Insurance [facility] AARP SUPPLEMENT [id number] 2017-Present [phone] [address] [place] [address] Indemnity [id number] 2017 Private Health Insurance [id number] 2017 Private Health Insurance [facility] AARP SUPPLEMENT [id number] 2017-Present [phone] [address] [place] [address] Indemnity [id number] 2010 Medicare MEDICARE MEDICAR E A AND B [id number] 2010-Present [phone] [address] [address] [place] [address] Medicare [id number] 2010 Medicare [id number] 2010 Medicare MEDICARE MEDICAR E A AND B [id number] 2010-Present [phone] [address] [address] [place] [address] Medicare [id number] 1945 Unknown [id number] Unknown [id number] Unknown [id number] Unknown [id number] .462 Unknown [id number] .462 Unknown [id number] .462 Unknown [id number] .462 Unknown [id number] .462 Unknown [id number] .462 Unknown [id number] Social History Date Type Detail Facility Start: 10-25-2021 End: 09-02-2024 Tobacco smoking status [facility] Never smoked tobacco [facility] Work Phone: Start: 02-09-2020 Alcohol intake Current drinke r of alcohol (finding) [facility] Start: 01-29-2020 History SDOH Alcohol Frequency 3 [facility] Start: 01-29-2020 History SDOH Alcohol Std Drinks 1 [facility] Start: 1945 Sex Assigned At Not on file C [facility] Start: 08-18-2021 End: 12-26-2021 Exposure to SARS-CoV-2 (event) Not sure [facility] Start: 12-10-2018 End: 10-25-2021 Tobacco use and exposure Smokeless tobacco non-user [employer] Work Phone: Start: 10-25-2021 Alcohol intake Lifetime non-d ander (finding) [facility] Phone: Start: 1945 Sex Assigned At Female [facility] Medical Equipment Procedure Code Equipment Code Equipment Origin al Text Equipment Identifier Dates Cement Simplex P Bone Radiopaque Half Dose Sterile - [id number] Start: 12-16-2018 0---Raphael Bn Endur Sst 40gm Hvisc - [id number] Start: 07-15-2012 Raphael Bn Smplx Hv Fd - [id number] Start: 09-07-2014 [id number] 0628-Ctd-Qd-A-Kind Implant - [id number] Start: 07-15-2012 Comment on above: Description: Tibial tray rotating platform 0---Ins Tib 2 12.5mm Kn Uhmwpe Rp - [id number] Start: 07-15-2012 0---Comp Fem 2 [id number] Lt Kn Cr - [id number] Start: 07-15-2012 Ins Tib 2.5 10mm Kn Uhmwpe Rp - [id number] Start: 09-07-2014 Comment on above: Description: TIBIAL INSERT ROTATING PLATFORM , CURVED Comp Fem 2.5 06v59pl Rt Kn Cr - [id number] Start: 09-07-2014 Comment on above: Description: SIGMA F EMORAL CRUCIATE RETAINING CEMENTED SIZE 2.5 RIGHT Comp Tibtry 2 Kn Raphael Lcs - [id number] Start: 09-07-2014 Comment on above: Description: TIBIAL TRAY ROTATING PLATFORM MBT CONE , SIZE 2 CEMENTED Dome Pfc Sigma 32mm Xs Oval Uhmwpe Patellar 3 Peg Knee - [id number] Start: 12-16-2018 Joint-11/26/2012 [id number] Start: 11-26-2012 Clinical Notes 12-16-2018 to 09-02-2024 Note Date & Type Note Facility 09-02-2024 Evaluation note Diagnosis Onset Date Resolution Fracture of distal phalanx of right index finger acute September 02, 2024 1:11pm [facility] Work Phone: [phone]) [phone] Evaluation note* Diagnosis Onset Date Resolution Status Admit Date Fracture of distal phalanx o f right index finger acute September 02 1:11pm Fracture of distal phalanx o f right index finger acute September 03 9:20am Subungual hematoma of finger of right hand acute September 03, 2024 9:20am [facility] Work Phone: [phone] Radiology Diagnostic study note [facility] Imaging Services [address] [place] [address] Finger(s) Min 2 Views MR#: [id number] Acct: [id number] Name: ROJELIO ARAMBULA Rep #: [id number] : 1945 F 78 From: Isidoro Vidales MD PCP: Dr. Marcos Garcia MD Status: REG CL I Study:Finger(s) Min 2 Views Date of Exam: 09/02/24 Exam# [id number] Ordering Dr: [facility] PROCEDURE: FINGER(S) MIN 2 VIEWS 09/02/2024 REASON FOR EXAM: FINGER INJURY TECHNIQUE: 3 view(s) of the right 2nd finger COMPARISON: None. RAD/Finger(s) Min 2 Views IMPRESSION: No radiopaque foreign body is seen. A distal tuft fracture, minimally displaced, is seen in the right 2nd distal phalanx. Moderate degenerative changes of the right 2nd proximal interphalangeal joint, and mild degenerative changes of the right 2nd distal interphalangeal joint is noted. Reading Location: [address] CC: Dr. Marcos Garcia MD; RADHA Tomlinson ~ [employer]er: Signed [facility]10-17-2022 History of Present illness Narrative* Mariaelena Greer, RT(R) - 01/08/2022 8:30 AM EDT RADIOLOGY SERVICE PROGRESS NOTE SERVICE DATE: 01/08/2022 SERVICE TIME: 8:43 AM PATIENT IDENTITY VERIFICATION COMPLETED USING TWO (2) STANDARD IDENTIFIERS: Name and Date of confirmed by patient verbally FALL SCREENING: Has the patient had 2 falls in the last year or 1 fall with injury or currently using an Ambulatory Assistive Device (Walker, Cane, Wheelchair, Crutches, etc.)? No PATIENT GENDER DATA: .female : No ALLERGIES: Reviewed and unchanged MEDICATIONS REVIEWED: Not applicable PATIENT RELEVANT IMPLANT DATA REVIEWED: Not Applicable CREATININE: Creatinine Date Value Ref Range Status 01/29/2020 0.92 0.58 - 0.96 mg/dL Final 12/17/2018 1.05 (H) 0.58 - 0.96 mg/dL Final 12/10/2018 1.05 (H) 0.58 - 0.96 mg/dL Final eGFR-All Other Races Date Value Ref Range Status 01/29/2020 60 . Final Comment: eGFR (Estimated GFR) Units of measure: mL/min/1.73 meters squared eGFR is derived from the reexpressed MDRD Study equation using the following parameters: serum creatinine, age, gender and race. The creatinine assay has been calibrated to be traceable to IDMS. An eGFR <60 mL/min/1.73m2 for >3 months is consistent with chronic kidney disease. Refer to KDOQI guidelines for clinical interpretation. In patients with unstable renal function, e.g. those with acute kidney injury, the eGFR may not accurately reflect actual GFR. eGFR- Date Value Ref Range Status 01/29/2020 >60 Final P.O.C.T. RESULTS: N/A January 08, [address] PERFORMED: No IV SITE: NM only - not applicable, oral or physician administered agents given to patient POST EXAM PIV STATUS: Discontinued PROCEDURE TYPE: whole body bone ADMINISTRATION TIME: 20.3 mci mdp PATIENT DISCHARGED TO: Ambulatory patient, left [place] department area. A Diagnostic radioactive procedure has taken place, with no further precautions necessary other than routine body substance precautions. More information regarding radiation safety can be found usingthis link: [email or web address] SIGNATURE: RT Emma(R) PATIENT NAME: Rojelio Arambula DATE: January 08, 2022 TIME: 8:43 AM PAGER/CONTACT #: documented in this encounterOhiohealth08-04-[facility]22 Hospital Discharge instructions* Discharge Instructions* Donna Worrell RN - 10/26/2021 9:59 AM EDT Images from the original note were not included. Colonoscopy: What to Expect at Home Your Recovery After a colonoscopy, you'll stay at the clinic until you wake up. Then you can go home. But you'll need to arrange for a ride. Your doctor will tell you whenyou can eat and do your other usual activities. Your doctor will talk to you about when you'll need your next colonoscopy. Your doctor can help youdecide how often you need to be checked. This will dependon the results of your test and your risk for colorectal cancer. After the test, you may be bloated or have gas pains. You may need to pass gas. If a biopsy was done or a polyp was removed, you may have streaks of blood in your stool (feces) for a few days. Problems such as heavy rectal bleeding may not occur until several weeks after the test. This isn't common. But it canhappen after polyps are removed. This care sheet gives you a general idea about how long it will take for you to recover. But each person recovers at a different pace. Follow the steps belowto get better as quickly as possible. How can you care for yourself at home? Activity Rest when you feel tired. You can do your normal activities when it feels okay to do so. Diet Follow your doctor's directions for eating. Unless your doctor has told you not to, drink plenty of fluids. This helps to replace the fluids that were lost during the colon prep. Do not drink alcohol. Medicines Your doctor will tell you if and when you can restart your medicines. You will also be given instructions about taking any new medicines. If you take aspirin or some other blood thinner, ask your doctor if and when to start taking it again. Make sure that you understand exactly what your doctor wants you to do. If polyps were removed or a biopsy was done during the test, your doctor may tell you not to take aspirin or other anti-inflammatory medicines for a few days. These include ibuprofen (Advil, Motrin) and naproxen (Aleve). Other instructions For your safety, do not drive or operate machinery until the medicine wears off and you can think clearly. Your doctor may tell you not to drive or operate machinery until the day after your test. Do not sign legal documents or make major decisions until the medicine wears off and you can think clearly. The anesthesia can make it hard for you to fully understand what you are agreeing to. Follow-up care is a chapin part of your treatment and safety. Be sure to make and go to all appointments, and call your doctor if you are having problems. It's also a good idea to know your test resultsand keep alist of the medicines you take. When should you call for help? Call 911 anytime you think you may need emergency care. For example, call if: You passed out (lost consciousness). You pass maroon or bloody stools. You have trouble breathing. Call your doctor now or seek immediate medical care if: You have pain that does not get better after you take pain medicine. You are sick to your stomach or cannot drink fluids. You have new or worse belly pain. You have blood in your stools. You have a fever. You cannot pass stools or gas. Watch closely for changes in your health, and be sure to contact your doctor ifyou have any problems. Where can you learn more? Go to [email or web address] and sign in to your Mobile[employer] account. Enter E264 in the Search Health Information box to learn more about Colonoscopy: What to Expect at Home. If you do not have an account, please click on the Sign Up Now link. Current as of: November 30, 2020 Content Version: 13.3 [employer]. Care instructions adapted under license by [employer]. If you have questions about a medical condition or this instruction, always ask your healthcare professional. [employer] disclaims any warranty or liability for your use of this information. Upper GI Endoscopy: What to Expect at Home Your Recovery You had an upper GI endoscopy. Your doctor used a thin, lighted tube that bends to look at the inside of your esophagus, your stomach, and the first part ofthe small intestine, called the duodenum. After you have an endoscopy, you will stay at the hospital or clinic for 1 to 2 hours. This will allow the medicine to wear off. You will be able to go home after your doctor or nurse checks to make sure that you're not having anyproblems. You may have to stay overnight if you had treatment during the test. You mayhave a sore throat for a day or two after the test. This care sheet gives you a general idea about what to expect after the test. How can you care for yourself at home? Activity Rest as much as you need to after you go home. You should be able to go back to your usual activities the day after the test. Diet Follow your doctor's directions for eating after the test. Drink plenty of fluids (unless your doctor has told you not to). Medications If you have a sore throat the day after the test, use an mrku-ofd-vgpfjim spray to numb your throat. Follow-up care is a chapin part of your treatment and safety. Be sure to make and go to all appointments, and call your doctor if you are having problems. It's also a good idea to know your test resultsand keep alist of the medicines you take. When should you call for help? Call 911 anytime you think you may need emergency care. For example, call if: You passed out (lost consciousness). You have trouble breathing. You pass maroon or bloody stools. Call your doctor now or seek immediate medical care if: You have pain that does not get better after your take pain medicine. You have new or worse belly pain. You have blood in your stools. You are sick to your stomach and cannot keep fluids down. You have a fever. You cannot pass stools or gas. Watch closely for changes in your health, and be sure to contact your doctor if: Your throat still hurts after a day or two. You do not get better as expected. Where can you learn more? Go to [email or web address] and sign in to your [employer] account. Enter J454 in the Search Health Information box to learn more about Upper GI Endoscopy: What to Expect at Home. If you do not have an account, please click on the Sign Up Now link. Current as of: November 30, 2020 Content Version: 13.3 [employer]. Care instructions adapted under license by [employer]. If you have questions about a medical condition or this instruction, always ask your healthcare professional. [employer] disclaims any warranty or liability for your use of this information. * Attachments The following attachments cannot be sent through Care Everywhere. * EGD (Upper Endoscopy): Post-op (Greek) documented in this encounterBON [employer] Work Phone: [phone] 620-648908-04-2022 History of Present illness Narrative* Jacque Wade RN - 10/26/2021 8:44 AM EDT SBAR form completed. Placed on chart. Chart with patient in transit to hold room. * Venessa Shaw RN - 10/25/2021 11:07 AM EDT Images from the original note were not included. [facility] PRE OP INSTRUCTIONS FOR Rojelio Arambula Date: 10/25/2021 Date of surgery: 10/26/2021 Arrival Time: Hospital will call you between 5pm and 7pm with your final arrival time for surgery Nothing by mouth (NPO) as instructed.__midnight Take the following medications with a small sip of water on the morning of Surgery: no meds to bring Diabetics may take evening dose of insulin but none after midnight. If you feel symptomatic or low blood sugar morning of surgery drink 1-2 ounces of apple juice only. Aspirin, Ibuprofen, Advil, Naproxen, Vitamin E and other Anti-inflammatory products should be stopped before surgery as directed by your physician. Take Tylenol only unless instructed otherwise by your surgeon. Check with your Doctor regarding stopping Plavix, Coumadin, Lovenox, Eliquis, Effient, or other blood thinners. Do not smoke,use illicit drugs and do not drink any alcoholic beverages 24 hours prior to surgery. You may brush your teeth the morning of surgery. DO NOT SWALLOW WATER You MUST make arrangements for a responsible adult to take you home after your surgery. You will not be allowed to leave alone or drive yourself home. It is strongly suggested someone stay with you the first 24 hrs. Your surgery will be cancelled if you do not have a ride home. PEDIATRIC PATIENTS ONLY: A parent/legal guardian must accompany a child scheduled for surgery and plan to stay at the hospital until the child is discharged. Please do not bring other children with you. Please wear simple, loose fitting clothing to the hospital. Do not bring valuables (money, credit cards, checkbooks, etc.) Do not wear any makeup (including no eye makeup) or nail greek on your fingers or toes. DO NOT wear any jewelry or piercings on day of surgery. All body piercing jewelry must be removed. Shower the night before surgery with __x_Antibacterial soap /VONDA WIPES TOTAL JOINT REPLACEMENT/HYSTERECTOMY PATIENTS ONLY---Remember to bring Blood Bank bracelet to the hospital on the day of surgery. If you have a Living Will and Durable Power of Battery [employer]ger Tester for Healthcare, please bring in a copy. If appropriate bring crutches, inspirex, WALKER, CANE etc... Notify your Surgeon if you develop any illness between now and surgery time, cough, cold, fever, sore throat, nausea, vomiting, etc. Please notify your surgeon if you experience dizziness, shortness of breath or blurred vision between now & the time of your surgery. If you have ___dentures, they will be removed before going to the OR; we will provide you a container. If you wear ___contact lenses or ___glasses, they will be removed; please bring a case for them. To provide excellent care visitors will be limited to 2 in the room at any given time. Please bring picture ID and insurance card. During flu season no children under the age of 14 are permitted in the hospital for the safety of all patients. Other Please call [facility] if you have any further questions. Pre Admit Testing [phone] [facility] [phone] documented in this encounterBON [employer] [employer] [employer] Work Phone: [phone] NoteHNO ID: [id number] Author: Justin Cheatham MD Service: ? Author Type: Physician Type: Progress Notes Filed: 08/28/2021 1:46 PM Note Text: Respiratory [place] Subjective Rojelio Arambula is a 75 year old female seen s/p covid And has been doing well Had pft and is to have a follow up ct of chest from 04/15 that was improved. She has no cough not sob , exercising and desat study was good no oxygen needed. She also had pft done She is gardening and does well Had poisen fatemeh and on rx. No cp feels well , her hair loss from covid recovered. 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 - Vertigo PAST SURGICAL HISTORY Procedure Laterality Date - COLONOSCOPY - PAST SURGICAL HISTORY OF 2011 right breast lumpectomy - PAST SURGICAL HISTORY OF 2004 right bunionectomy - PAST SURGICAL HISTORY OF bowel resction 1971-endometriosis - PAST SURGICAL HISTORY OF 2005 lithotripsy - PAST SURGICAL HISTORY OF partial thyroidectomy (right) - PAST SURGICAL HISTORY OF right knee replacement, left knee replacement - PAST SURGICAL HISTORY OF Right 09/2019 shoulder impingment surgery - TOTAL ABDOM HYSTERECTOMY 1972 FAMILY HISTORY Problem Relation Age of Onset - other (heart disease) Father - Diabetes Son - Cancer Mother lung and bone Social History Tobacco Use - Smoking status: Never Smoker - Smokeless tobacco: Never Used Substance Use Topics - Alcohol use: Yes - Drug use: No ALLERGIES Allergen Reactions - Morphine Swelling Rash, edema - Oxycodone Other: See Comments N/V, headache - Penicillins Rash - Propoxyphene nausea Current Outpatient Medications on File Prior to Visit Medication Sig - lisinopril-hydrochlorothiazide (PRINZIDE,ZESTORETIC) 20-12.5 mg per tablet Take 2 tablets by mouth once daily. - cholecalciferol, vitamin D3, (VITAMIN D3 ORAL) Take by mouth. - atorvastatin (LIPITOR) 10 mg tablet Take 10 mg by mouth once daily. PM - metFORMIN (GLUCOPHAGE) 500 mg tablet Take 500 mg by mouth daily with breakfast. - acetaminophen (TYLENOL) 500 mg tablet Take 2 tablets by mouth every 8 hours. Do not exceed more than 3000 mg of Tylenol per 24 hour period - ascorbic acid, vitamin C, (VITAMIN C) 500 mg tablet Take 1 tablet by mouth twice daily with meals. - Levothyroxine 75 mcg cap Take 75 mcg by mouth once daily. - sertraline (ZOLOFT) 100 mg tablet Take 100 mg by mouth once daily. No current facility-administered medications on file prior to visit. Review of Systems Constitutional: Negative for activity change, appetite change, chills, diaphoresis, fatigue, fever and unexpected weight change. HENT: Negative for congestion, dental problem, drooling, ear discharge, ear pain, facial swelling, hearing loss, mouth sores, nosebleeds, postnasal drip, rhinorrhea, sinus pressure, sneezing, sore throat, tinnitus, trouble swallowing and voice change. Eyes: Negative for photophobia, pain, discharge, redness, itching and visual disturbance. Respiratory: Negative for apnea, cough, choking, chest tightness, shortness of breath, wheezing and stridor. Cardiovascular: Negative for chest pain, palpitations and leg swelling. Gastrointestinal: Negative for abdominal distention, abdominal pain, anal bleeding, blood in stool, constipation, diarrhea, nausea and rectal pain. Endocrine: Negative for cold intolerance, heat intolerance, polydipsia, polyphagia and polyuria. Genitourinary: Negative for decreased urine volume, difficulty urinating, dysuria, enuresis, flank pain, frequency, genital sores, hematuria and urgency. Musculoskeletal: Negative for arthralgias, back pain, gait problem, joint swelling, myalgias, neck pain and neck stiffness. Skin: Negative for color change, pallor and rash. Allergic/Immunologic: Negative for environmental allergies, food allergies and immunocompromised state. Neurological: Negative for dizziness, tremors, seizures, syncope, facial asymmetry, speech difficulty, weakness, light-headedness, numbness and headaches. Hematological: Negative for adenopathy. Does not bruise/bleed easily. Psychiatric/Behavioral: Negative for agitation, behavioral problems, confusion, decreased concentration, dysphoric mood, hallucinations and self-injury. The patient is not nervous/anxious and is not hyperactive. Objective There were no vitals taken for this visit. Physical Exam (more content not included)...[facility]06-06-[facility] Instructions* Patient Instructions* Justin Cheatham MD - 08/28/2021 1:[address] of chest in 03/2022 And virtual visit in 03/2022 documented in this encounterOhiohealth06-06-2022 History of Present illness Narrative* Justin Cheatham MD - 08/28/2021 1:06 PM EDT Images from the original note were not included. [facility] [place] Subjective Rojelio Arambula is a 75 year old female seen s/p covid And has been doing well Had pft and is to have a follow up ct of chest from 04/15 that was improved. She has no cough not sob , exercising and desat study was good no oxygen needed. She also had pft done She is gardening and does well Had poisen fatemeh and on rx. No cp feels well , her hair loss from covid recovered. PAST MEDICAL HISTORY Diagnosis Date Anxiety Arthritis Basal cell carcinoma of skin Basal cell carcinoma of skin s/p removal, follows with derm annually per pt Breast cancer (HCC) right Breast cancer (HCC) 2011 right breast / radiation treatment Depression 12/10/2018 Diabetes (HCC) 01/29/2020 Gastroesophageal reflux disease without esophagitis 12/10/2018 History of breast cancer 12/10/2018 Hypertension Kidney stones Meniere's disease 2008 treated with a patch PONV (postoperative nausea and vomiting) 12/10/2018 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 Vertigo PAST SURGICAL HISTORY Procedure Laterality Date COLONOSCOPY PAST SURGICAL HISTORY OF 2011 right breast lumpectomy PAST SURGICAL HISTORY OF 2004 right bunionectomy PAST SURGICAL HISTORY OF bowel resction 1972-endometriosis PAST SURGICAL HISTORY OF 2006 lithotripsy PAST SURGICAL HISTORY OF partial thyroidectomy (right) PAST SURGICAL HISTORY OF right knee replacement, left knee replacement PAST SURGICAL HISTORY OF Right 09/2019 shoulder impingment surgery TOTAL ABDOM HYSTERECTOMY 1972 FAMILY HISTORY Problem Relation Age of Onset other (heart disease) Father Diabetes Son Cancer Mother lung and bone Social History Tobacco Use Smoking status: Never Smoker Smokeless tobacco: Never Used Substance Use Topics Alcohol use: Yes Drug use: No ALLERGIES Allergen Reactions Morphine Swelling Rash, edema Oxycodone Other: See Comments N/V, headache Penicillins Rash Propoxyphene nausea Current Outpatient Medications on File Prior to Visit Medication Sig lisinopril-hydrochlorothiazide (PRINZIDE,ZESTORETIC) 20-12.5 mg per tablet Take 2 tablets by mouth once daily. cholecalciferol, vitamin D3, (VITAMIN D3 ORAL) Take by mouth. atorvastatin (LIPITOR) 10 mg tablet Take 10 mg by mouth once daily. PM metFORMIN (GLUCOPHAGE) 500 mg tablet Take 500 mg by mouth daily with breakfast. acetaminophen (TYLENOL) 500 mg tablet Take 2 tablets by mouth every 8 hours. Do not exceed more than 3000 mg of Tylenol per 24 hour period ascorbic acid, vitamin C, (VITAMIN C) 500 mg tablet Take 1 tablet by mouth twice daily with meals. Levothyroxine 75 mcg cap Take 75 mcg by mouth once daily. sertraline (ZOLOFT) 100 mg tablet Take 100 mg by mouth once daily. No current facility-administered medications on file prior to visit. Review of Systems Constitutional: Negative for activity change, appetite change, chills, diaphoresis, fatigue, fever and unexpected weight change. HENT: Negative for congestion, dental problem, drooling, ear discharge, ear pain, facial swelling, hearing loss, mouth sores, nosebleeds, postnasal drip, rhinorrhea, sinus pressure, sneezing, sore throat, tinnitus, trouble swallowing and voice change. Eyes: Negative for photophobia, pain, discharge, redness, itching and visual disturbance. Respiratory: Negative for apnea, cough, choking, chest tightness, shortness of breath, wheezing andstridor. Cardiovascular: Negative for chest pain, palpitations and leg swelling. Gastrointestinal: Negative for abdominal distention, abdominal pain, anal bleeding, blood in stool,constipation, diarrhea, nausea and rectal pain. Endocrine: Negative for cold intolerance, heat intolerance, polydipsia, polyphagia and polyuria. Genitourinary: Negative for decreased urine volume, difficulty urinating, dysuria, enuresis, flank pain, frequency, genital sores, hematuria and urgency. Musculoskeletal: Negative for arthralgias, back pain, gait problem, joint swelling, myalgias, neck pain and neck stiffness. Skin: Negative for color change, pallor and rash. Allergic/Immunologic: Negative for environmental allergies, food allergies and immunocompromised state. Neurological: Negative for dizziness, tremors, seizures, syncope, facial asymmetry, speech difficulty, weakness, light-headedness, numbness and headaches. Hematological: Negative for adenopathy. Does not bruise/bleed easily. Psychiatric/Behavioral: Negative for agitation, behavioral problems, confusion, decreased concentration, dysphoric mood, hallucinations and self-injury. The patient is not nervous/anxious and is not hyperactive. Objective There were no vitals taken for this visit. Physical Exam Vitals and nursing note reviewed. Constitutional: General: She is not in acute distress. Appearance: She is well-developed. She is not diaphoretic. HENT: Head: Normocephalic and atraumatic. Comments: No pnd No exudate Right Ear: External ear normal. Left Ear: External ear normal. Nose: Nose normal. Mouth/Throat: Pharynx: No oropharyngeal exudate. Eyes: General: No scleral icterus. Right eye: No discharge. Left eye: No discharge. Conjunctiva/sclera: Conjunctivae normal. Pupils: Pupils are equal, round, and reactive to light. Neck: Thyroid: No thyromegaly. Vascular: No JVD. Trachea: No tracheal deviation. Cardiovascular: Rate and Rhythm: Normal rate and regular rhythm. Heart sounds: Normal heart sounds. No murmur heard. No friction rub. No gallop. Pulmonary: Effort: Pulmonary effort is normal. No accessory muscle usage, respiratory distress or retractions. Breath sounds: Normal breath sounds. No stridor. No decreased breath sounds, wheezing, rhonchi or rales. Chest: Chest wall: No mass, deformity, swelling, tenderness, crepitus or edema. Abdominal: General: Bowel sounds are normal. There is no distension. Palpations: Abdomen is soft. Tenderness: There is no abdominal tenderness. Musculoskeletal: General: No tenderness or deformity. Normal range of motion. Cervical back: Normal range of motion and neck supple. Lymphadenopathy: Cervical: No cervical adenopathy. Skin: General: Skin is warm and dry. Coloration: Skin is not pale. Findings: No erythema or rash. Neurological: Mental Status: She is alert and oriented to person, place, and time. Cranial Nerves: No cranial nerve deficit. Motor: No abnormal muscle tone. Coordination: Coordination normal. Deep Tendon Reflexes: Reflexes are normal and symmetric. Reflexes normal. Psychiatric: Behavior: Behavior normal. Judgment: Judgment normal. FEV1 L 2.05 1.26 1.77 2.26 115.6 2.15 121.3 5.0 DLCO and TLC normal And FENO is 21 Review of the old notes if available was done and parts have been incorporated Into the a/p below for continuity of care. Immunizations reviewed Assessment and Plan S/p covid pneuomonia 01/12 Ct of chest 04/15 Ct of chest will be done in 04/16 and if stable no more nonsmoker no oxgyen needed S/p pft all normal And asymptomic S/p covid vaccination up to date With booster cxr as noted with scarring Will get ct of chest By her house Ct of chest will do S/p cough resolved. And pft are good Will get ct of chest 03/2022 And is improved follow clinically Low risk nonsmoker s/p covid Pt agreed with the plan above Liudmila Cheatham MD Return in about 6 months (around 02/27/2022), or if symptoms worsen or fail to improve. Pt seen face to face in the office and went over the plan in detail Summary notes were explained and all questions answered. All new medications were explained and literature given on instructions as required Risks and benefits of medications and procedures were explained Pt is to return to office as scheduled and prn as pt knows to call with any new questions or concerns. [facility] NoteHNO ID: [id number] Author: Justin Cheatham MD Service: ? Author Type: Physician Type: Progress Notes Filed: 04/03/2021 1:29 PM Note Text: INPATIENT TELEPHONE VISIT PROGRESS NOTE SERVICE DATE: 04/03/2021 SERVICE TIME: 1:21 PM Rojelio Arambula has consented to this telephone encounter. Persons Present: patient Chief Complaint/Reason: follow up covid and testing results ct of chest and pft HPI: she is feeling well And has not as sob and doing better No cough no cp And had pft and ct of chest l Data Reviewed: Most recent labs and imaging results. FEV1 ? L ? 2.05 ?1.26 ?1.77 ?2.26 115.6 ?2.15 121.3 ? 5.0 Assessment: ? S/p covid pneuomonia 7.21 Ct of chest much improved. pft as noted normal though some increase in the FEVI no hx of asthma Follow clinically nonsmoker And no oxgyen needed Walking desaturation done and stable. cxr as noted with scarring Will need to get report Normal breathing test Walking study good did decrease to 92 with ambulation Plan: Ct of chest Follow up in 08/2021 And will continue to exercise and check her oxygen levels I spent 15 min providing this service. The patient or patient?s insurance representative consented to this telephone encounter. I reviewed all pertinent data. SIGNATURE: Liudmila Cheatham MD PATIENT NAME: Rojelio Arambula DATE: April 03, 2021 TIME: 1:16 [facility]01-06-[facility]22 NoteHNO ID: [id number] Author: DONNY Barriga Service: ? Author Type: Mass Spectrometry Manager Type: Progress Notes Filed: 03/30/2021 2:07 PM Note Text: PULM FUNCTION SMARTBLOCK: Provider: Justin Cheatham MD Spirometry w/BD: 1 DLCO: 1 LV - Box: 1 Oximetry - Ambulation: 1 Exhaled Nitric Oxide: 1 System: [id number] NoteHNO ID: [id number] Author: DONNY Barriga Service: ? Author Type: Mass Spectrometry Manager Type: Procedures Filed: 03/30/2021 2:07 PM Note Text: RESPIRATORY THERAPY OXIMETRY WITH AMBULATION Oximetry with Ambulation Test for This Encounter O2 Device O2 Adapter NC O2 Flow SpO2% HR Activity Ft Walked (ft) Time (min) Avg Speed (MPH) R/A 100 86 Resting R/A 93 121 Walking, usual pace 650 3 2.46 General Information Pulse Oximetry Site Total Time Spent O2 Supply Carrier Walking Assistance/Device Forehead 30 ? None NAME: DONNY Barriga PATIENT NAME: Rojelio Arambula DATE: March 30, 2021 TIME: 2:06 PM Comment: (normal pace=fast pace)[facility] NoteHNO ID: [id number] Author: DONNY Barriga Service: ? Author Type: Mass Spectrometry Manager Type: Procedures Filed: 03/30/2021 1:27 PM Note Text: RESPIRATORY THERAPY ORAL EXHALED NITRIC OXIDE SERVICE DATE: 03/30/2021 SERVICE TIME: 1:27 PM Oral Exhaled Nitric Oxide measurement: 21.0 (ppb) Normal: Adult 5-20 ppb, pediatric (<12 years) 5-15 ppb High Normal / Increased: Adult 20-35 ppb, pediatric (<12 years) 15-25 ppb Moderately raised exhaled Nitric Oxide may indicate underlying inflammation, but note that: Cold and influenza can raise exhaled Nitric Oxide and some patients have higher baseline exhaled Nitric Oxide levels than others. High: Adult >35 ppb, pediatric (<12 years) >25 ppb Indicative of ongoing eosinophilic inflammation. Symptomatic patient likely to respond to steroids. Possible causes (if already on steroids): Poor compliance, recent allergen exposure, steroid dose inadequate, and steroid resistance. Note that not all patients with high exhaled nitric oxide levels display symptoms. Oral Exhaled Nitric Oxide measurement (Previous Encounters) Test Date Oral Exhaled Nitric Oxide (ppb) 03/30/2021 21.0 NAME: DONNY Barriga PATIENT NAME: Rojelio Arambula DATE: March 30, 2021 TIME: 1:27 [facility] NoteHNO ID: [id number] Author: Alexandra Whiteside Service: ? Author Type: ? Type: Progress Notes Filed: 03/30/2021 10:01 AM Note Text: Radiology Service Progress Note PATIENT NAME: Rojelio Arambula DATE OF SERVICE: March 30, 2021 TIME: 10:00 AM PATIENT IDENTITY VERIFICATION COMPLETED USING TWO (2) IDENTIFIERS: Name and Date of confirmed by patient verbally. FALL SCREENING: Has the patient had 2 falls in the last year or 1 fall with injury or currently using an Ambulatory Assistive Device (Walker, Cane, Wheelchair, Crutches, etc.)? No PATIENT GENDER DATA: Female. status: : No status: NO. PATIENT RELEVANT IMPLANT DATA REVIEWED: Yes RADIOLOGY DEPARTMENT: CT; Exam(s) Completed: Chest PERIPHERAL IV DATA: Not applicable SIGNED BY: Alexandra Whiteside March 30, 2021 10:00 [facility]12-06-2021 NoteHNO ID: [id number] Author: Justin Cheatham MD Service: ? 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 No hx of asthma And no hx of copd And family hx of lung cancer Mom + smoker Gardening , can go up steps Is sob after a few flights Has cxr with stable But noted scarring noted Do not have the records And is to have ct of chest - With covid had headache and then lost taste And + covid and medicine and s/p infusion and did desaturation and had falls and dizziness S/p covid vaccination and s/p flu shot 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 - Vertigo PAST SURGICAL HISTORY Procedure Laterality Date - COLONOSCOPY - PAST SURGICAL HISTORY OF 2011 right breast lumpectomy - PAST SURGICAL HISTORY OF 2004 right bunionectomy - PAST SURGICAL HISTORY OF bowel resction 1971-endometriosis - PAST SURGICAL HISTORY OF 2005 lithotripsy - PAST SURGICAL HISTORY OF partial thyroidectomy (right) - PAST SURGICAL HISTORY OF right knee replacement, left knee replacement - PAST SURGICAL HISTORY OF Right 09/2019 shoulder impingment surgery - TOTAL ABDOM HYSTERECTOMY 1971 FAMILY HISTORY Problem Relation Age of Onset - other (heart disease) Father - Diabetes Son - Cancer Mother lung and bone Social History Tobacco Use - Smoking status: Never Smoker - Smokeless tobacco: Never Used Substance Use Topics - Alcohol use: Yes - Drug use: No ALLERGIES Allergen Reactions - Morphine Swelling Rash, edema - Oxycodone Other: See Comments N/V, headache - Penicillins Rash - Propoxyphene nausea Current Outpatient Medications on File Prior to Visit Medication Sig - lisinopril-hydrochlorothiazide (PRINZIDE,ZESTORETIC) 20-12.5 mg per tablet Take 2 tablets by mouth once daily. - cholecalciferol, vitamin D3, (VITAMIN D3 ORAL) Take by mouth. - atorvastatin (LIPITOR) 10 mg tablet Take 10 mg by mouth once daily. PM - metFORMIN (GLUCOPHAGE) 500 mg tablet Take 500 mg by mouth daily with breakfast. - acetaminophen (TYLENOL) 500 mg tablet Take 2 tablets by mouth every 8 hours. Do not exceed more than 3000 mg of Tylenol per 24 hour period - ascorbic acid, vitamin C, (VITAMIN C) 500 mg tablet Take 1 tablet by mouth twice daily with meals. - Levothyroxine 75 mcg cap Take 75 mcg by mouth once daily. - sertraline (ZOLOFT) 100 mg tablet Take 100 mg by mouth once daily. No current facility-administered medications on file prior to visit. Review of Systems Constitutional: Negative for activity change, appetite change, chills, diaphoresis, fatigue, fever and unexpected weight change. HENT: Negative for congestion, dental problem, drooling, ear discharge, ear pain, facial swelling, hearing loss, mouth sores, nosebleeds, postnasal drip, rhinorrhea, sinus pressure, sneezing, sore throat, tinnitus, trouble swallowing and voice change. Eyes: Negative for photophobia, pain, discharge, redness, itching and visual disturbance. Respiratory: Negative for apnea, cough, choking, chest tightness, shortness of breath, wheezing and stridor. Cardiovascular: Negative for chest pain, palpitations and leg swelling. Gastrointestinal: Negative for abdominal distention, abdominal pain, anal bleeding, blood in stool, constipation, diarrhea, nausea and rectal pain. Endocrine: Negative for cold intolerance, heat intolerance, polydipsia, polyphagia and polyuria. Genitourinary: Negative for decreased urine volume, difficulty urinating, dysuria, enuresis, flank pain, frequency, genital sores, hematuria and urgency. Musculoskeletal: Negative for arthralgias, back pain, gait problem, joint swelling, myalgias, neck pain and neck stiffness. Skin: Negative for color change, pallor and rash. Allergic/Immunologic: Negative for environmental allergies, food allergies and immunocompromised state. Neurological: Negative (more content not included)...[facility] 12-16-[facility] History of Past illness Narrative* Problem Noted Date Resolved Date S/P TKR (total knee replacement) 12/16/2018 12/17/2018 Arthritis of left knee 07/15/2012 3 documented as of this encounter (statuses as of 08/28/2021) [facility] of Past illness Narrative* Problem Noted Date Resolved Date S/P TKR (total knee replacement) 12/16/2018 12/17/2018 Arthritis of left knee 07/15/2012 3 documented as of this encounter (statuses as of 01/09/2022) [facility] of Past illness Narrative* Problem Noted Date Resolved Date S/P TKR (total knee replacement) 12/16/2018 12/17/2018 Arthritis of left knee 07/15/2012 3 documented as of this encounter (statuses as of 01/09/2022) [facility] Diagnosis Lung nodules- Primary Other nonspecific abnormal finding of lung field COVID-19 Nonsmoker Other specified conditions influencing health status [facility] Diagnosis Diverticulitis Diverticulitis of colon (without mention of hemorrhage) Anemia, blood loss Iron deficiency anemia secondary to blood loss (chronic) documented in this encounter [facility] Work Phone: evaluation note* Diagnosis Onset Date Resolution Status Admit Date Fracture of distal phalanx o f right index finger acute September 02 1:11pm [employer] Work Phone: Summary Purpose Family History No Family History Records FoundNo Family History Records FoundNo Family History Records FoundNo Family History Records FoundNo Family History Records FoundNo Family History Records Found Advance Directives No Advanced Directives Records FoundDocuments on File Type Date Recorded 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 Advance Directive(s) 02/08/2020 9:37 AM Advance Directive(s) 01/28/2020 9:57 AM Advance Directive(s) 09/23/2019 9:08 AM Procedure Findings Note HNO ID: [id number] Author: Deanna Noe Service: Anesthesiology Author Type: Anesthesiologist Type: Procedures Filed: 10/06/2019 11:02 AM Note Text: PERIPHERAL NERVE BLOCK PROCEDURE NOTE SERVICE DATE: 10/06/2019 Incision/Procedure Start Time: 1020 Incision Close/Procedure End Time: 1030 Informed Consent Obtained: Yes Sign in Communication: Completed Time Out: Team Confirms the Correct Patient, Correct Procedure, Correct Site and Site Marking, Correct Position (if applicable), Prep and Dry Time (if applicable). Time: 1020 Affirmation of Time Out: YES Sign Out Discussion: Completed Procedure: Right Interscalene Nerve Block Catheter Used: No Indication: Right shoulder pain Diagnosis: Acute postop pain Moderate Sedation Used: Yes, IV Versed (Midazolam) 2 milligrams; Sedation Start Time: 1020, Sedation End Time: 1030 Epidural/Nerve Block for postop pain per surgeon's request: Yes Pre Procedure Neuro Examination: SENSORY: Intact MOTOR: Intact PROCEDURE DETAILS: ? Vital signs were monitored (more content not included)... Note HNO ID: [id number] Author: Brigido Parrish Service: Orthopaedic Surgery Author Type: Physician Type: Brief Op Note Filed: 10/06/2019 1:07 PM Note Text: BRIEF OPERATIVE / PROCEDURE NOTE LOG ID: [id number] SURGERY/PROCEDURE DATE: 10/06/2019 INCISION/PROCEDURE START TIME: 11:47 AM INCISION CLOSE/PROCEDURE END TIME: 12:09 PM SURGEON(S)/PROCEDURALIST(S) AND TOP TRIMMER(S): Surgeon(s) and Role: * Faizan Parrish - Primary Physician Bicycle Repairer: Maximus Eastman (Pa) SURGERY/PROCEDURE(S): right shoulder scope ANESTHESIA: General FINDINGS: impingement ESTIMATED BLOOD LOSS: 0 ml SPECIMENS: None COMPLICATIONS: None PRE-OP/PRE-PROCEDURE DIAGNOSIS: r shoulder impingement POST-OP/POST-PROCEDURE DIAGNOSIS: Same as Preop SIGNATURE: Faizan Parrish MD PATIENT NAME: Rojelio Arambula DATE: October 06, 2019 TIME: 1:06 PM PAGER/CONTACT #: Note HNO ID: [id number] Author: Deanna Noe Service: ? Author Type: Anesthesiologist Type: Anesthesia Procedure Notes Filed: 02/09/2020 10:52 AM Note Text: ANESTHESIOLOGY PROCEDURE NOTE Peripheral Nerve Block General Information Procedure Start Time/Medication Administration: 02/09/2020 10:18 AM Procedure End time: 02/09/2020 10:28 AM Patient location during procedure: pre-op Timeout Performed Pre- procedure: timeout performed Consent Obtained: Yes Patient identity confirmed: arm band, patient and care team leader surgery Reason for block: post-op pain management/at surgeon's request and pain service Staffing Anesthesiologist: Amadeo Noe Performed by: anesthesiologist Preparation Sterility Preparation: hand hygiene performed prior to procedure, surgical cap used, mask used, sterile drape used during line insertion, skin prep agent completely dried prior to procedure Site Prep: Chloraprep Pre-Procedure Neuro Exam Sensory: intact Motor: intact Procedure Details Patient Position: sitting Nancy (more content not included)... Note HNO ID: [id number] Author: Basia Duggan Service: ? Author Type: Nurse Oracle Database Manager Type: Anesthesia Procedure Notes Filed: 02/09/2020 12:11 PM Note Text: ANESTHESIOLOGY PROCEDURE NOTE Airway General Information Procedure Start Time/Medication Administration: 02/09/2020 11:37 AM Patient location during procedure: OR Timeout Performed Pre-procedure: timeout performed Consent Obtained: Yes Patient identity confirmed: arm band, care team leader surgery and patient Staffing CRYPTOGRAPHIC CLERK: Deana Bailon Performed by: SB Indications and Patient Condition Preoxygenated: yes Patient position: sniffing Manual In-Line Stabilization: No Difficult Mask: No Indications for airway management: anesthesia anesthesia circuit Method: asleep Cricoid Pressure: No Final Airway Details Final airway type: endotracheal airway Final Endotracheal Airway: ETT Cuffed: yes Successful intubation technique: direct laryngoscopy Endotracheal tube insertion site: oral Blade: Lc Blade size: #3 ETT size (mm (more content not included)... Note HNO ID: [id number] Author: Marine Bailon Service: ? Author Type: Nurse Oracle Database Manager Type: Anesthesia Procedure Notes Filed: 02/09/2020 1:38 PM Note Text: ANESTHESIOLOGY PROCEDURE NOTE PIV General Information Procedure Start Time/Medication Administration: 02/09/2020 1:15 PM Patient Location: OR Staffing CRYPTOGRAPHIC CLERK: Deana Bailon Preparation Sterility Preparation: hand hygiene performed prior to procedure, surgical cap used, mask used Site Prep: ETOH Procedure Details Indication: need for IV access Needle Size/Type: 20 gauge angiocath Orientation: Left Location: Hand Imaging Guidance Used: No SIGNATURE: Deana Bailon APRN.CRNA PATIENT NAME: Rojelio Arambula DATE: February 09, 2020 TIME: 1:38 PM CSN: [id number] Chief Complaint and Reason for Visit Chief Complaint Admit Date R HAND/INDEX FINGER/PAIN/INJURY August 1:11pm finger injury- RIGHT HAND September 02 1:24pm Reason for Visit Admit Date Fracture of distal phalanx of right inde x finger September 02, 2024 1:11pm Chief Complaint Admit Date R HAND/INDEX FINGER/PAIN/INJURY August 1:11pm finger injury- RIGHT HAND September 02 1:24pm RIGHT HAND/FIRST FINGER September 03, 2024 9:20am Reason for Visit Admit Date Fracture of distal phalanx of right inde x finger September 02, 2024 1:11pm Fracture of distal phalanx of right inde x finger September 03, 2024 9:20am Subungual hematoma of finger of right [place] nd September 03, 2024 9:20am Chief Complaint Admit Date R HAND/INDEX FINGER/PAIN/INJURY August 1:11pm finger injury- RIGHT HAND September 02 1:24pm RIGHT HAND/FIRST FINGER September 03, 2024 9:20am RIGHT HAND September 10, 2024 10:1 5am Room 6 September 10, 2024 10:3 1am Additional Source Comments INFORMATION SOURCE (unrecogn ized section and content) DATE CREATED AUTHOR 10/14/2019 [facility] DATE CREATED AUTHOR AUTHOR'S ORGANIZ ATION 03/06/2020 [facility] DATE CREATED AUTHOR AUTHOR'S ORGANIZ ATION 11/15/2020 [facility] DATE CREATED AUTHOR AUTHOR'S ORGANIZ ATION 11/03/2021 [facility] DATE CREATED AUTHOR AUTHOR'S ORGANIZ ATION 12/24/2021 [facility] DATE CREATED AUTHOR AUTHOR'S ORGANIZ ATION 09/12/2024 [facility] Source Comments (unrecognize d section and content) In the event this informatio n is protected by the Federal Confidentiality of Alcohol and Drug Abuse Patient Records regulations: The Federal rules restrict any use of the information to criminally investigate or prosecute any alcohol or drug abuse patient.[facility]healthIn the event this information is protected by the Federal Confidentiality of Alcohol and Drug Abuse Patient Records regulations: The Federal rules restrict any use of the information to criminally investigate or prosecute any alcohol or drug abuse patient.[facility]healthIn the event this information is protected by the Federal Confidentiality of Alcohol and Drug Abuse Patient Records regulations: The Federal rules restrict any use of the information to criminally investigate or prosecute any alcohol or drug abuse patient.[facility] Reason for Visit (unrecogniz ed section and content) Reason Comments Follow Up Specialty Diagnoses / Procedures Referred By Contac t Referred To Contact Diagnoses Diverticulitis Anemia, blood loss Diverticulitis [K57.92] Anemia, blood loss [D50.0] Procedures VT COLONOSCOPY FLX DX W/COLLJ SPEC WHEN PFRMD COLONOSCOPY (NEEDS SIF SCOPE) Ang Adames MD [address] [place] [address] [facility] [id number] [place] [address] Referral ID Status Reason Start Date Expiration Date Visits Re quested Visits Authorized [id number] 1 1 Reason Comments Radiology [place] Care Teams (unrecognized sec tion and content) Tap Dancer Relationship Specialty Start Date End Date Tio Perez MD PCP - General Internal Medicine 11/17/18 Tap Dancer Relationship Specialty Start Date End Date Toi Perez MD [address] [facility], [address] [place] [address] PCP - General Internal Medicine 09/07/18 Tap Dancer Relationship Specialty Start Date End Date Tio Perez MD PCP - General Internal Medicine 11/17/18 Tap Dancer Relationship Specialty Start Date End Date Tio Perez MD PCP - General Internal Medicine 11/17/18 Team Status: Active Member Role Status Abbe Garcia MD Primary Care Provider Active Team Status: Inactive Member Role Status Dates Marcos Garcia MD Primary Care Provider Active St art: September 02, 2024 End: September 02, 2024 Marcos Garcia MD Referring Provider Active Start : September 02, 2024 End: September 02, 2024 RADHA Bynum Attending Provider Active Start: September 02, 2024 End: September 02, 2024 Team Status: Active Member Role Status Abbe Garcia MD Primary Care Provider Active St art: September 02, 2024 RADHA Bynum Attending Provider Active Start: September 02, 2024 RADHA Bynum Referring Provider Active Start: September 02, 2024 Team Status: Inactive Member Role Status Abbe Garcia MD Primary Care Provider Active St art: September 03, 2024 End: September 03, 2024 Marcos Garcia MD Referring Provider Active Start : September 03, 2024 End: September 03, 2024 ALINE Sethi Attending Provider Active Start: September 03, 2024 End: September 03, 2024 Team Status: Inactive Member Role Status Abbe Garcia MD Primary Care Provider Active St art: September 02, 2024 End: September 02, 2024 RADHA Bynum Attending Provider Active Start: September 02, 2024 End: September 02, 2024 RADHA Bynum Referring Provider Active Start: September 02, 2024 End: September 02, 2024 Team Status: Active Member Role Status Abbe Garcia MD Primary Care Provider Active St art: September 10, 2024 Marcos Garcia MD Referring Provider Active Start : September 10, 2024 ALINE Sethi Attending Provider Active Start: September 10, 2024 Team Status: Inactive Member Role Status Abbe Garcia MD Primary Care Provider Active St art: September 10, 2024 End: September 10, 2024 Dr. Justin Romero MD Attending Provider Active S tart: September 10, 2024 End: September 10, 2024 Team Status: Inactive Member Role Status Abbe Garcia MD Primary Care Provider Active St art: September 10, 2024 End: September 10, 2024 Marcos Garcia MD Referring Provider Active Start : September 10, 2024 End: September 10, 2024 ALINE Sethi Attending Provider Active Start: September 10, 2024 End: September 10, 2024 Continuous Active and Recently Administ ered Medications (unrecognized section and content) Medication Order 10/24/2021 10/25/2021 10/26/2021 0.9 % sodium chloride infusion IntraVENous, at 100 mL/hr, CONTINUOUS, Starting on Neeta 10/26/21 at 0715, Pre-op (day of surgery) 0715 (Due) PRN Medication Order 10/24/2021 10/25/2021 10/26/2021 sodium chloride flush 0.9 % injection 5-40 mL 5-40 mL, IntraVENous, PRN, Starting on Neeta 10/26/21 at 0650, Until Discontinued, Line Care, After every IV line use, For Line Patency: Peripheral IV = 5 mL; Midline or Central Line = 10 mL/lumen. If following IV push medication, administer flush at same rate as the IV push. Flush volume is determined by type of infusion therapy being given. For non-viscous solutions use: Peripheral IV = 5 mL Midline or Central Line = 10 mL/lumen For viscous solutions (i.e. blood components, parenteral nutrition, contrast media, or after obtaining blood sample) use: Peripheral IV = 10 mL Midline or Central Line = 20 mL/lumen, Pre-op (day of surgery) Goals (unrecognized section and content) Goals may be documented in a n alternate sectionGoals may be documented in an alternate sectionGoals may be documented in an alternate sectionGoals may be documented in an alternate sectionGoals may be documented in an alternate section FOR RECORDS PERTAINING TO PATIENTS WHO ARE OR HAVE BEEN ENROLLED IN A CHEMICAL DEPENDENCY/SUBSTANCEABUSE PROGRAM, SOME INFORMATION MAY BE OMITTED. This clinical summary was aggregated from multiple sources. Caution should be exercised in using it in the provision of clinical care. This summary normalizes information from multiple sources, and as a consequence, information in this document may materially change the coding, format and clinical context of patient data. In addition, data may be omitted in some cases. CLINICAL DECISIONS SHOULD BE BASED ON THE PRIMARY CLINICAL RECORDS. [employer] provides no warranty or guarantee of the accuracy or completeness of information in this document.
== END | disposition home or self-care (01) ==
LOC: MFPLAB 12:14
PROVIDERS: PCP Family Medicine; Referring Provider Family Medicine; Visit Provider Family Medicine
DX: I10 Essential (primary) hypertension (principal); E03.9 Hypothyroidism, unspecified; R73.03 Prediabetes
CPT/HCPCS: 36415; 80053; 80061; 82306; 83036; 84443; 85025

== ENCOUNTER → 2024-11-20 | Outpatient (CLI) | payer MEDICARE, OTHER, SELFPAY ==
[2024-11-20 13:02] LABS: Hematocrit 33.3 % (37-47); Hemoglobin 11.6 g/dL (12.0-15.0); Immature Granulocytes Count 0.010 X10^3/uL (0.0-0.0); Mean Corp Hgb Conc 34.8 g/dL (32-36); Mean Corpuscular Volume 89.3 fL (81-99); Mean Platelet Vol. 11.2 fl (6.2-12.0); NRBC Flagged by Analyzer 0 % (0-5); Platelet Count 181 K/mm3 (150-450); RBC Distribution Width CV 12.1 % (11.6-14.6); RBC Distribution Width SD 39.4 fl (35.1-43.9); Red Blood Count 3.73 M/mm3 (4.2-5.4); White Blood Count 3.7 K/mm3 (4.4-11.0)
[2024-11-20 14:05] LABS: CRP < 3.00 mg/L (0.0-3.0)
== END | disposition home or self-care (01) ==
LOC: MTLAB 10:50
PROVIDERS: PCP Family Medicine; Referring Provider Nurse Practitioner Family; Visit Provider Nurse Practitioner Family
DX: Z96.651 Presence of right artificial knee joint (principal)
CPT/HCPCS: 36415; 85025; 85652; 86140

== ENCOUNTER → 2024-12-24 | Outpatient (CLI) | payer MEDICARE, OTHER, SELFPAY ==
--- NOTE | 2024-12-24 10:58 | BD_ITS ---
PROCEDURE: DEXA BONE DENSITY STUDY 12/24/2024 REASON FOR EXAM: F, age 79 y/o . Postmenopausal screening. TECHNIQUE: Procedure Code: BDDBD Modality: DX Procedure: DEXA BONE DENSITY STUDY COMPARISON: None FINDINGS: BMD and T-SCORES Lumbar spine: 1.246 g/cm2, T-score 1.8 Levels: L1 through L4 Change from prior: . Left femoral neck: 0.792 g/cm2, T-score -0.5 Femoral neck comparison data not recommended for monitoring change. Prior T-score Left total hip: 0.943 g/cm2, T-score 0.0 Change from prior: . Right femoral neck: 0.743 g/cm2, T-score -1.0 Femoral neck comparison data not recommended for monitoring change. Prior T-score Right total hip: 0.911 g/cm2, T-score -0.3 Change from prior: . The World Health Organization has defined the following categories based on bone density: Normal bone density: T-score equal to or greater than -1.0 Osteopenia: T-score between -1.0 and -2.5 Osteoporosis: T-score equal to or less than -2.5 FRAX (or Comparable) Fracture Risk Assessment: 10 Year Probability of Fracture: Major Osteoporotic Fracture: 11% Hip Fracture: 2.1% (Note: FRAX is not to be reported in setting of normal range bone density, osteoporosis on DEXA, known history of osteoporosis, prior osteoporotic hip or vertebral fracture, or for any patient undergoing pharmacological treatment for bone loss.) The National Osteoporosis Foundation (NOF) recommends pharmacological treatment for patients with a FRAX 10-year risk of 3% or higher for a hip fracture, or 20% or higher for a major osteoporotic fracture, to prevent osteoporosis and reduce fracture risk. The patient does not meet the pharmacological treatment recommendations for prevention of osteoporosis. BD/Dexa Bone Density Study IMPRESSION: OSTEOPENIA. Recommend follow-up as clinically warranted. Reading Location: [id number]
== END | disposition home or self-care (01) ==
LOC: OPBD 10:57
PROVIDERS: PCP Family Medicine; Referring Provider Family Medicine; Visit Provider Family Medicine
DX: Z78.0 Asymptomatic menopausal state (principal)
CPT/HCPCS: 77080

== ENCOUNTER → 2025-02-19 | Outpatient (CLI) | payer MEDICARE, OTHER, SELFPAY ==
--- OUTSIDE RECORDS SUMMARY | 2025-02-19 11:39 | XMS RPT_ITS | CCD ---
Author Organization [facility] CliniSymo Care Team Providers Care Flag Maker Name Role Phone Tio Perez MD Primary Care Provider DORIAN PEREZIN RADHA Primary Care Unavailable RICOTTIAALIYAHLIUDMILA Attending Unavailable ZACARIAS LIUDMILA Admitting Unavailable MIKULA, TIO P Primary Care [...] Care Unavailable POZUELO, JUSTIN M Referring Unavailable Mikula Tio WHITTAKER Primary Care Provider Marcos Garcia MD Primary Care Provider Marcos Garcia MD Referring Provider Rosas Reed Attending Provider Rosas Reed Referring Provider Melody Stewart Attending Provider Dr. Justin Romero MD Attending Provider Marcos Garcia MD Attending Provider Irvin WHITTAKER, Telly J Unavailable Yang WHITTAKER, Faizan Gonzalez Unavailable Bhavana WHITTAKER, Tio Perez Unavailable [phone] Kizzy WHITTAKER, Dung Don Unavailable Jose WHITTAKER, Marcos Dobbins Unavailable Kyaw FELT CUTTING MACHINE OPERATOR-C, Attending Provider Kyaw FELT CUTTING MACHINE OPERATOR-C, Referring Provider [phone] Jose, Chalon Primary Care Unavailable Jose, Chalon Attending Unavailable Jose, Chalon Referring Unavailable Jose, Chalon Primary Care Unavailable Rosas Reed Referring Unavailable Rosas Reed Attending Unavailable Jose, Chalon Attending Unavailable Jose, Chalon Referring Unavailable Jose, Chalon Primary Care Unavailable Jose, Chalon Primary Care Unavailable Holly Card Attending Unavailable Kyaw, Referring Unavailable LoyaMelody Attending Unavailable Jose, Chalon Referring Unavailable Jose, Chalon Primary Care Unavailable NickJustin Attending Unavailable Jose, Chalon Primary Care Unavailable Jose, Chalon Referring Unavailable Loya, Melody Attending Unavailable Jose, Chalon Primary Care Unavailable Nick, Justin Attending Unavailable Jose, Chalon Primary Care Unavailable Jose, Chalon Primary Care Unavailable Rosas Reed Attending Unavailable Jose, Chalon Referring Unavailable LoyaMelody Attending Unavailable Jose, Chalon Referring Unavailable Jose, Chalon Primary Care Unavailable LoyaMelody Attending Unavailable Jose, Chalon Referring Unavailable Jose, Chalon Primary Care Unavailable Nick La Motte Attending Unavailable Jose, Chalon Primary Care Unavailable Jose, Chalon Attending Unavailable Jose, Chalon Referring Unavailable Jose, Chalon Primary Care Unavailable Jose, Chalon Primary Care Unavailable Jose, Chalon Attending Unavailable Jose, Chalon Referring Unavailable Jose WHITTAKER, Marcos Primary Care Physician Macros Garcia MD Referring Provider Vincenzo FELT CUTTING MACHINE OPERATOR-CMelody Attending Physician Nick WHITTAKER, Dr. Anderson Attending Physician Kyaw Holly MIRELES Attending Physician Marcos Garcia MD Attending Physician [phone] Allergies Allergy Classification Reported Allergen(s) Allergy Type Date of Onset Reaction(s) Facility (17 sources) Morphine; Translations: [MORPHINE] Drug Allergy 9 Swelling, Hives [facility] (4 sources) oxyCODONE; Translations: [OXYCODONE] Drug Allergy 0 Other: See Comments [facility] Work Phone: (2 sources) Penicillins; Translations: [PENICILLINS] Propensity to adverse reactions 9 Rash [facility] Work Phone: (4 sources) Propoxyphene; Translations: [PROPOXYPHENE] Drug Allergy 9 [facility] Work Phone: (13 sources) Amoxicillin Drug Allergy 9 [facility] (2 sources) Penicillins Propensity to adverse reactions 9 Rash [facility] Work Phone: (3 sources) Amoxicillin Drug Allergy 3 [facility] (3 sources) Morphine Drug Allergy 3 [facility] (3 sources) oxyCODONE Drug Allergy 3 [facility] (1 source) Amoxicillin Drug Allergy 5 [facility] (1 source) Morphine Drug Allergy 5 [facility] Medications Current Medications Medication Drug Class(es) Dates Sig (Normalized) Sig (Original) ascorbic acid 125 mg / iron carbonyl 65 mg delayed release oral tablet (3 sources) Vitamin C take 1 tablet by mouth once daily Vitron-C 65 mg iron- 125 mg tablet,delayed release (DR/EC) TAKE ONE TABLET BY MOUTH DAILY active Maki Bonner ATC [facility] aspirin 81 mg oral tablet (1 source) Platelet Aggregation Inhibitor, Nonsteroidal Anti-inflammatory Drug take 2 tablets by mouth once daily in the morning aspirin 81 MG tablet Indications: 2 tablets daily Take 81 mg by mouth in the morning. Indications: 2 tablets daily. Told not to stop. 0 Active atorvastatin 10 mg oral tablet (7 sources) HMG-CoA Reductase Inhibitor atorvastatin 10 mg tablet active Loren Stack MA [facility] Comment on above: Take 10 mg by mouth once daily. PM ergocalciferol 1.25 mg oral capsule (12 sources) Provitamin D2 Compound Start: 09-02-2024 hydroCHLOROthiazide 12.5 mg / lisinopril 20 mg oral tablet (19 sources) Thiazide Diuretic, Angiotensin Converting Enzyme Inhibitor Start: 09-02-2024 lisinopril-hydro chlorothiazide 20-12.5 mg tablet active Loren Stack MA [facility] take 2 tablets by mo uth once daily lisinopril-hydrochlorothiazide (PRINZIDE ,ZESTORETIC) 20-12.5 mg per tablet Take 2 tablets by mouth once daily. 0 Active Comment on above: Take 2 tablets by mo uth once daily. levothyroxine sodium 0.088 mg oral tablet (19 sources) l-Thyroxine Start: 09-02-2024 take 1 tablet by mouth once daily levothyroxine 75 mcg tablet active Loren Stack MA [facility] take 1 capsule by mouth once tate ly Levothyroxine 75 mcg cap Take 75 mcg by mouth once daily. 0 Active Comment on above: Take 75 mcg by mouth once daily. meloxicam 7.5 mg oral tablet (15 sources) Nonsteroidal Anti-inflammatory Drug Start: 09-02-2024 End: 11-28-2025 meloxicam 7.5 mg tablet Take 1 tablet by mouth once a day as needed for pain active - Dung Durand MD, [address] [facility] [id number] [facility] Multivitamin tablet (11 sources) Start: 09-03-2024 Start: 09-03-2024 Multivitamin t ablet Active 1 {tbl} PO EVERY MORNING September 03, 2024 12:00am rosuvastatin calcium 5 mg oral tablet (15 sources) HMG-CoA Reductase Inhibitor Start: 09-02-2024 take 1 tablet by mouth once daily Semaglutide 0.5 mg/0.1 mL syringe (12 sources) Start: 09-02-2024 Start: 09-02-2024 Semaglutide 0. 5 mg/0.1 mL syringe Active mg SC September 02, 2024 12:00am sertraline 100 mg oral tablet (19 sources) Serotonin Reuptake Inhibitor Start: 09-02-2024 take 1 tablet by mouth once daily Comment on above: Take 100 mg by mouth once daily. 1000 ml sodium chloride 9 mg/ml injection (2 sources) Start: 10-26-2021 0.9 % sodium chloride infusion Start: 10-26-2021 sodium chlorid e flush 0.9 % injection 5-40 mL tretinoin 0.25 mg/ml topical cream (3 sources) Retinoid tretinoin 0.025% cream APPLY TOPICALLY TO FACE EVERY DAY AT BEDTIME active Loren Stack MA [facility] Completed/Discontinued Medications Medication Drug Class(es) Dates Sig [...] on above: Take 2 tablets by mo [facility] every 8 hours. Do not exceed [...] Comment on above: [facility] with meals. cephalexin 500 mg oral capsule (10 sources) Cephalosporin Antibacterial Start: 5 End: 5 take 1 capsule by mouth three times daily Cephalexin 500 mg capsule Discontinued 500 mg PO THREE TIMES A DAY 15 0 September 03, 2024 12:00am September 29, 2024 9:24am cholecalciferol, vitamin D3, (VITAMIN D3 ORAL) (3 [...] ing dose topiramate 25 mg oral tablet (12 sources) Start: 5 End: 5 take 1 [...] loss (chronic)] Chronic Diabetes mellitus without complication (6 sources) Diabetes mellitus; Translations: [Type 2 diabetes mellitus without complications] Onset: 01-29-2020 01-29-2020 Chronic Diverticulosis and diverticulitis (1 source) Diverticulitis; Translations: [Diverticulitis of intestine, part unspecified, without perforation or abscess without bleeding] Chronic Esophageal disorders (3 sources) Gastroesophageal reflux disease without esophagitis; Translations: [Gastro-esophageal reflux disease without esophagitis] Onset: 12-10-2018 12-10-2018 Chronic Essential hypertension (16 sources) Essential hypertension; Translations: [Essential (primary) hypertension] Onset: 12-10-2018 12-10-2018 Chronic Fracture of upper limb (20 sources) Displaced fracture of distal phalanx of right index finger, initial encounter for closed fracture; Translations: [Fracture of distal phalanx of right index finger] Onset: 09-10-2024 09-02-2024 Episodic Mood disorders (3 sources) Depressive disorder; Translations: [Depression] Onset: 12-10-2018 12-10-2018 Chronic Nutritional deficiencies (1 source) Vitamin D deficiency, unspecified; Translations: [Vitamin D deficiency, unspecified] Onset: 04-23-2024 Chronic Other connective tissue disease (1 source) Presence of unspecified artificial knee joint; Translations: [Artificial knee joint present, unspecified laterality] Onset: 12-14-2021 Chronic Other connective tissue disease (3 sources) History of revision of right total knee arthroplasty; Translations: [Presence of right artificial knee joint] Onset: 07-16-2022 07-16-2022 Chronic Other connective tissue disease (6 sources) History of total knee arthroplasty; Translations: [Presence of left artificial knee joint] Onset: 04-02-2022 04-02-2022 Chronic Other connective tissue disease (1 source) Presence of right artificial knee joint; Translations: [Presence of right artificial knee joint] Onset: 11-25-2024 Chronic Other lower respiratory disease (1 source) Multiple nodules of lung; Translations: [Other nonspecific abnormal finding of lung field] Episodic Other non-traumatic joint disorders (15 sources) Pain in unspecified knee; Translations: [Knee pain] Onset: 11-19-2024 09-02-2024 Episodic Other non-traumatic joint disorders (3 sources) Effusion of right knee joint; Translations: [Effusion, right knee] Onset: 11-19-2024 11-22-2024 Episodic Residual codes; unclassified (1 source) Non-smoker; Translations: [Other specified health status] Episodic Residual codes; unclassified (1 source) Asymptomatic menopausal state; Translations: [Asymptomatic menopausal state] Onset: 01-06-2025 Episodic Unclassified (11 sources) S62.630A - Displaced fracture of distal phalanx of right index finger, initial encounter for closed fracture Unclassified (6 sources) Fracture of distal phalanx of right index finger Viral infection (1 source) Disease caused by 2019-nCoV; Translations: [COVID-19] Episodic Viral infection (1 source) COVID-19; Translations: [COVID-19] Onset: 03-30-2021 Past or Other Problems Problem Classification Problem Date Documented Date Episodic/Chronic Cancer of breast (3 sources) History of malignant neoplasm of breast; Translations: [Personal history of malignant neoplasm of breast] Onset: 12-10-2018 12-10-2018 Episodic Complication of device; implant or graft (6 sources) Instability of internal right knee prosthesis, subsequent encounter; Translations: [Other specified aftercare] Onset: 04-02-2022 12-13-2022 Episodic Nausea and vomiting (3 sources) Postoperative [...] as traumatic] Onset: 01-29-2020 01-29-2020 Episodic Other injuries and conditions due to [...] wrist, hand and finger(s), initial encounter] Onset: 09-21-2024 Episodic Other lower respiratory disease (1 source) Cough; Translations: [Cough] Onset: 03-30-2021 Episodic Other lower respiratory disease (1 source) Shortness of breath; Translations: [Shortness of breath] Onset: 03-30-2021 Episodic Other non-traumatic joint disorders (6 sources) Hemarthrosis; Translations: [Hemarthrosis, unspecified joint] Onset: 07-26-2022 07-26-2022 Episodic Other screening for suspected conditions (not mental disorders or infectious disease) (1 source) Encounter for screening mammogram for malignant neoplasm of breast; Translations: [Encounter for screening mammogram for malignant neoplasm of breast] Onset: 05-01-2024 Episodic Superficial injury; contusion (20 sources) Subungual hematoma, hand; Translations: [Contusion of unspecified finger with damage to nail, initial encounter] Onset: 09-10-2024 09-03-2024 Episodic Results Test Name Value Interpretation Reference Range Facility Bone density reportOrdered B y: Alejandro Mccoy on 12-24-2024 Study report Skeletal system [facility] [address] [address] Dexa Bone Density Study MR#: [id number] Acct: [id number] Name: ROJELIO ARAMBULA Rep #: [id number] : 1945 F 79 From: Lenora Mccoy MD PCP: Dr. Marcos Garcia MD Status: REG CL I Study:Dexa Bone Density Study Date of Exam: 12/24/24 Exam# [id number] Ordering Dr: Geetha Garcia MD PROCEDURE: DEXA BONE DENSITY STUDY 12/24/2024 REASON FOR EXAM: F, age 79 y/o . Postmenopausal screening. TECHNIQUE: Procedure Code: BDDBD Modality: DX Procedure: DEXA BONE DENSITY STUDY COMPARISON: None FINDINGS: BMD and T-SCORES Lumbar spine: 1.246 g/cm2, T-score 1.8 Levels: L1 through L4 Change from prior: . Left femoral neck: 0.792 g/cm2, T-score -0.5 Femoral neck comparison data not recommended for monitoring change. Prior T-score Left total hip: 0.943 g/cm2, T-score 0.0 Change from prior: . Right femoral neck: 0.743 g/cm2, T-score -1.0 Femoral neck comparison data not recommended for monitoring change. Prior T-score Right total hip: 0.911 g/cm2, T-score -0.3 Change from prior: . The World Health Organization has defined the following categories based on bonedensity: Normal bone density: T-score equal to or greater than -1.0 Osteopenia: T-score between -1.0 and -2.5 Osteoporosis: T-score equal to or less than -2.5 FRAX (or Comparable) Fracture Risk Assessment: 10 Year Probability of Fracture: Major Osteoporotic Fracture: 11% Hip Fracture: 2.1% (Note: FRAX is not to be reported in setting of normal range bone density, osteoporosis on DEXA, known history of osteoporosis, prior osteoporotic hip or vertebral fracture, or for any patient undergoing pharmacological treatment for bone loss.) The National Osteoporosis Foundation (NOF) recommends pharmacological treatment for patients with a FRAX 10-year risk of 3% or higher for a hip fracture, or 20% or higher for a major osteoporotic fracture, to prevent osteoporosis and reduce fracture risk. The patient does not meet the pharmacological treatment recommendations for prevention of osteoporosis. BD/Dexa Bone Density Study IMPRESSION: OSTEOPENIA. Recommend follow-up as clinically warranted. Reading Location: [id number] CC: Dr. Marcos Garcia MD ~ Web Ui Software Engineer: Signed [facility] Dexa Bone Density Studyon Dexa Bone Density Study [facility] Imaging Services [address] [place] [address] Dexa Bone Density Study MR#: [id number] Acct: [id number] Name: ROJELIO ARAMBULA Rep #: [id number] : 1945 F 79 From: Alejandro Mccoy MD PCP: Dr. Marcos Garcia MD Status: REG CLI Study: Dexa Bone Density Study Date of Exam: 12/24/24 Exam# [id number] Ordering Dr: Marcos Garcia MD PROCEDURE: DEXA BONE DENSITY STUDY 12/24/2024 REASON FOR EXAM: F, age 79 y/o . Postmenopausal screening. TECHNIQUE: Procedure Code: BDDBD Modality: DX Procedure: DEXA BONE DENSITY STUDY COMPARISON: None FINDINGS: BMD and T-SCORES Lumbar spine: 1.246 g/cm2, T-score 1.8 Levels: L1 through L4 Change from prior: . Left femoral neck: 0.792 g/cm2, T-score -0.5 Femoral neck comparison data not recommended for monitoring change. Prior T-score Left total hip: 0.943 g/cm2, T-score 0.0 Change from prior: . Right femoral neck: 0.743 g/cm2, T-score -1.0 Femoral neck comparison data not recommended for monitoring change. Prior T-score Right total hip: 0.911 g/cm2, T-score -0.3 Change from prior: . The World Health Organization has defined the following categories based on bone density: Normal bone density: T-score equal to or greater than -1.0 Osteopenia: T-score between -1.0 and -2.5 Osteoporosis: T-score equal to or less than -2.5 FRAX (or Comparable) Fracture Risk Assessment: 10 Year Probability of Fracture: Major Osteoporotic Fracture: 11% Hip Fracture: 2.1% (Note: FRAX is not to be reported in setting of normal range bone density, osteoporosis on DEXA, known history of osteoporosis, prior osteoporotic hip or vertebral fracture, or for any patient undergoing pharmacological treatment for bone loss.) The National Osteoporosis Foundation (NOF) recommends pharmacological treatment for patients with a FRAX 10-year risk of 3% or higher for a hip fracture, or 20% or higher for a major osteoporotic fracture, to prevent osteoporosis and reduce fracture risk. The patient does not meet the pharmacological treatment recommendations for prevention of osteoporosis. BD/Dexa Bone Density Study IMPRESSION: OSTEOPENIA. Recommend follow-up as clinically warranted. Reading Location: [id number] CC: Dr. 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 Normal [facility] Relevant diagnostic tests/la boratory data Narrativeon 12-03-2024 Fall risk assessment yes [employer] Work Phone: MEDS REVIEW Done [employer] Work Phone: MEDS REVIEWD Medications reviewed with changes [employer] Work Phone: XRAY HX of the Right Knee on 10/13/2024 at [facility], of the Right Hip on 11/19/2024 at [facility] [employer] Work Phone: Absolute lymphocyte countOrd ered By: Holly Card on 11-20-2024 Lymphocytes Auto (Unsp spec) [#/Vol] 1.16 10*3/uL 0.83-4.51 [facility] Absolute neutrophil countOrd ered By: Holly Card on 11-20-2024 Neutrophils (Bld) [#/Vol] 2.0 10*3/uL 2.0-7.7 [facility] Automated lymphocyte count a s percentage of total leukocytesOrdered By: Holly Card on 11-20-2024 Lymphocytes/100 WBC Auto (Unsp spec) 31.8 % 19-41 [facility] Basophil percentageOrdered B y: Holly Card on 11-20-2024 Basophils/100 WBC (Bld) 1.1 % High 0-1 [facility] CBC W/Diff, Automatedon 08-2 Absolute Lymph 1.16 X10 3/uL Normal 0.83-4.51 [facility] Comment on above: Performed By: #### L 101.9900, L100.0100, L501.6710 ####[facility] [address] [place], [address] Absolute Neut 2.0 X10 3/uL Normal 2.0-7.7 [facility] Comment on above: Performed By: #### L 101.9900, L100.0100, L501.6710 ####[facility] [address] [place], [address] Basophils/100 WBC (Bld) 1.1 % High 0-1 [facility] Comment on above: Performed By: #### L 101.9900, L100.0100, L501.6710 ####[facility] [address] [place], [address] Eosinophils/100 WBC (Bld) 5.5 % High 0-5 [facility] Comment on above: Performed By: #### L 101.9900, L100.0100, L501.6710 ####[facility] [address] [place], [address] Erythrocyte distribution width (RBC) [Ratio] 12.1 % Normal 11.6-14.6 [facility] Comment on above: Performed By: #### L 101.9900, L100.0100, L501.6710 ####[facility] [address] [place], [address] Hematocrit (Bld) [Volume fraction] 33.3 % Low 37-47 [facility] Comment on above: Performed By: #### L 101.9900, L100.0100, L501.6710 ####[facility] [address] [place], [address] Hemoglobin (Bld) [Mass/Vol] 11.6 g/dL Low 12.0-15.0 [facility] Comment on above: Performed By: #### L 101.9900, L100.0100, L501.6710 ####[facility] [address] [place], [address] IG% 0.300 Normal 0.0-0.9 [facility] Comment on above: Result Comment: IG% - Immature Granulocytes (promyelocytes, myelocytes and metamyelocytes) > 1% indicates that a LEFT SHIFT is Present. Performed By: #### L 101.9900, L100.0100, L501.6710 ####[facility] [address] [place], [address] Lymphocytes/100 WBC (Bld) 31.8 % Normal 19-41 [facility] Comment on above: Performed By: #### L 101.9900, L100.0100, L501.6710 ####[facility] [address] [place], [address] MCH (RBC) [Entitic mass] 31.1 pg Normal 27.0-32.0 [facility] Comment on above: Performed By: #### L 101.9900, L100.0100, L501.6710 ####[facility] [address] [place], [address] MCHC (RBC) [Mass/Vol] 34.8 g/dL Normal 32-36 [facility] [place] [facility] Comment on above: Performed By: #### L 101.9900, L100.0100, L501.6710 ####[facility] [address] [place], [address] MCV (RBC) [Entitic vol] 89.3 fL Normal 81-99 [facility] Comment on above: Performed By: #### L 101.9900, L100.0100, L501.6710 ####[facility] [address] [place], [address] Monocytes/100 WBC (Bld) 7.4 % Normal 0-10 [facility] Comment on above: Performed By: #### L 101.9900, L100.0100, L501.6710 ####[facility] [address] [place], [address] Neutrophils/100 WBC (Bld) 53.9 % Normal 47-70 [facility] Comment on above: Performed By: #### L 101.9900, L100.0100, L501.6710 ####[facility] [address] [place], [address] Nucleated RBC (Bld) [#/Vol] 0 10*3/uL Normal 0-5 [facility] Comment on above: Performed By: #### L 101.9900, L100.0100, L501.6710 ####[facility] [address] [place], [address] Platelet mean volume (Bld) [Entitic vol] 11.2 fL Normal 6.2-12.0 [facility] Comment on above: Performed By: #### L 101.9900, L100.0100, L501.6710 ####[facility] [address] [place], [address] Platelets (Bld) [#/Vol] 181 10*3/uL Normal 150-450 [facility] Comment on above: Performed By: #### L 101.9900, L100.0100, L501.6710 ####[facility] [address] [place], [address] RBC (Bld) [#/Vol] 3.73 10*6/uL Low 4.2-5.4 [facility] Comment on above: Performed By: #### L 101.9900, L100.0100, L501.6710 ####[facility] [address] [place], [address] RDW SD 39.4 fl Normal 35.1-43.9 [facility] Comment on above: Performed By: #### L 101.9900, L100.0100, L501.6710 ####[facility] [address] [place], [address] WBC (Bld) [#/Vol] 3.7 10*3/uL Low 4.4-11.0 [facility] Comment on above: Performed By: #### L 101.9900, L100.0100, L501.6710 ####[facility] [address] [place], [address] CRPon 11-20-2024 C-REACTIVE PROT < 3.00 Normal 0.0-3.0 [facility] Comment on above: Performed By: #### L 101.9900, L100.0100, L501.6710 ####[facility] [address] [place], [address] Eosinophil percentageOrdered By: Holly Card on 11-20-2024 Eosinophils/100 WBC (Bld) 5.5 % High 0-5 [facility] Erythrocyte Sed Rateon 11-20 SED RATE 1 mm/hr Normal 0-30 [facility] Comment on above: Performed By: #### L 101.9900, L100.0100, L501.6710 ####[facility] [address] [place], [address] Erythrocyte distribution wid th ratioOrdered By: Holly Card on 11-20-2024 Erythrocyte distribution width (RBC) [Ratio] 12.1 % 11.6-14.6 [facility] Erythrocyte distribution wid th standard deviationOrdered By: Holly Card on 11-20-2024 Erythrocyte distribution width (RBC) [Ratio] 39.4 fl 35.1-43.9 [facility] Erythrocyte sedimentation ra teOrdered By: Holly Card on 11-20-2024 ESR (Bld) [Velocity] 1 mm/h 0-30 [facility] Hematocrit Auto (Bld) [Volum e fraction]Ordered By: Holly Card on 11-20-2024 Hematocrit (Bld) [Volume fraction] 33.3 % Low 37-47 [facility] Hemoglobin measurementOrdere d By: Holly Card on 11-20-2024 Hemoglobin (Bld) [Mass/Vol] 11.6 g/dL Low 12.0-15.0 [facility] Immature granulocytes/100 WB C Auto (Bld)Ordered By: Holly Card on 11-20-2024 Immature granulocytes/100 WBC (Bld) 0.300 % 0.0-0.9 [facility] Comment on above: IG% - Immature Granu locytes (promyelocytes, myelocytes and metamyelocytes) > 1% indicates that a LEFT SHIFT is Present. MCV (mean corpuscular volume ) determinationOrdered By: Holly Card on 11-20-2024 MCV (RBC) [Entitic vol] 89.3 fL 81-99 [facility] Mean corpuscular hemoglobin (MCH) determinationOrdered By: Holly Card on 11-20-2024 MCH (RBC) [Entitic mass] 31.1 pg 27.0-32.0 [facility] Mean corpuscular hemoglobin concentration (MCHC) determinationOrdered By: Holly Card on 11-20-2024 MCHC (RBC) [Mass/Vol] 34.8 g/dL 32-36 [facility] [place] [facility] Mean platelet volume determi nationOrdered By: Holly Card on 11-20-2024 Platelet mean volume (Bld) [Entitic vol] 11.2 fL 6.2-12.0 [facility] Monocyte percentageOrdered B y: Holly Card on 11-20-2024 Monocytes/100 WBC (Bld) 7.4 % 0-10 [facility] Neutrophil percentageOrdered By: Holly Card on 11-20-2024 Neutrophils/100 WBC (Bld) 53.9 % 47-70 [facility] Nucleated red blood cell per centageOrdered By: Holly Card on 11-20-2024 Nucleated RBC/100 WBC (Bld) [Ratio] 0 % 0-5 [facility] Platelet countOrdered By: Jamshid Card on 11-20-2024 Platelets (Bld) [#/Vol] 181 10*3/uL 150-450 [facility] RBC Auto (Bld) [#/Vol]Ordere d By: Holly Card on 11-20-2024 RBC (Bld) [#/Vol] 3.73 10*6/uL Low 4.2-5.4 [facility] Serum or plasma C reactive p rotein measurement (mass/volume)Ordered By: Holly Card on 11-20-2024 CRP [Mass/Vol] mg/L 0.0-3.0 [facility] White blood cell (WBC) count Ordered By: Holly Card on 11-20-2024 WBC (Bld) [#/Vol] 3.7 10*3/uL Low 4.4-11.0 [facility] Relevant diagnostic tests/la boratory data Narrativeon 11-19-2024 Fall risk assessment yes [employer] Work Phone: MEDS REVIEW Done [employer] Work Phone: MEDS REVIEWD Medications reviewed without changes [employer] Work Phone: XRAY HX of the Right Knee on 10/13/2024 at [facility] [employer] Work Phone: Finger(s) Min 2 Viewson Finger(s) Min 2 Views [facility] [address] [place] [address] Finger(s) Min 2 Views MR#: [id number] Acct: [id number] Name: ROJELIO ARAMBULA Rep #: [id number] : 1945 F 79 From: Dennis Zamorano PCP: Dr. 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 RAD/Finger(s) Min 2 Views IMPRESSION: Stable degenerative changes, particularly in the proximal interphalangeal joint. Stable alignment of the distal tuft fracture of the right 2nd finger. No evidence of osseous union. Reading Location: [place] [address] CC: ALINE Loya; Dr. 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 Normal [facility] Orthopedic Visit Reporton Orthopedic Visit Report [facility] [address] [place] [address] OFFICE VISIT Date of Service: 10/29/24 MR#: [id number] Acct: [id number] Name: ROJELIO ARAMBULA Rep #: [id number] : 1945 Provider: ALINE weems Age/Sex: 79/F Location: [facility] [place] Status: Signed Intake Vital Signs 09/10/24 10:23 Height 5 ft 1 in Intake Visit Reasons: RIGHT HAND Chief Complaint: right hand index finger follow-up Accompanied by: Self Is patient in pain?: No Allergies amoxicillin Allergy (Mild, Verified 10/29/24 09:22) Rash morphine Allergy (Mild, Verified 10/29/24 09:22) Rash Medications ???Medication ???Instructions ???Recorded ???Confirmed ???Type ergocalciferol (vitamin D2) 1,250 1,250 mcg PO QWEEK 09/02/2410/29 History mcg (50,000 unit) capsule levothyroxine 88 mcg tablet 88 mcg PO QDAY 09/02/24 10/29/24 H istory lisinopril 20 2 tab PO QDAY 09/02/24 10/29/24 Hi story mg-hydrochlorothiazide 12.5 mg tablet meloxicam 7.5 mg tablet 7.5 mg PO QDAY PRN pain 09/02/24 0 10/29/24 History rosuvastatin 5 mg tablet 5 mg PO QDAY 09/02/24 10/29/24 His tory semaglutide 0.5 mg/0.1 mL mg subcut 09/02/24 10/29/24 Histor y subcutaneous syringe sertraline 100 mg tablet 100 mg PO QDAY 09/02/24 10/29/24 H istory multivitamin 1 tab PO QAM 09/03/24 10/29/24 His tory Have you fallen in the [...] provided and the decisions made by me, OUMAR SethiC 10/29/24918. Part of today???s visit was documented by Elizabeth Roque ATC, acting as scribe. ROJELIO ARAMBULA is a 79 year old F here today for right index finger follow-up. Patient denies any pain today and states it no longer bothers her at all. She states the nail finally fell off yesterday and she states it feels so much better since it fell off. Agree with above. Patient is a 2-month follow-up after a right hand index finger fracture follow-up DOI 09/02/2024. Patient is pain free with range of motion or activities. No use of splint or brace since last visit. Nail was lifting up over last week, fell off on own yesterday. Denies pain or sensitivity to nail bed, no inflammation, redness or drainage. ROS Const All systems reviewed are unremarkable [...] Denies vomiting Musc Reports as per HPI Details: No pain, full ROM and activity. Nail fell off yesterday without incident Neuro No dizziness Psych Reports system reviewed and no additional complaints, except as documented Sancho/Lymph Denies easy bleeding and Denies easy bruising Ortho Exam General General: Yes no acute distress and Yes well groomed Neurologic: Yes alert and Yes oriented x3 Psychologic: Yes reasonable and appropriate Right Wrist/Hand Date of injury: 09/02/24 WRIST: R index finger: Skin is pink, warm, dry and intact. The nail has fallen off with dry and intact but slightly thickened skin. Slight pinkness at proximal nail fold and matrix junction with no surrounding erythema, warmth, tenderness or drainage. No with palpation or movement of the distal phalanx There is no pain over the DIP, PIP or MCP joints. Baseline range of motion at the MCP, PIP joint, and DIP joints with no symptom aggravation Distal cap refill brisk at 2 seconds with distal sensation intact Supplemental Info Independent review of finger x-rays compared to prior films. Continues to be a distal phalanx fracture with no displacement with bridging callus formation in lateral view. The distal fracture fragment appears partially reabsorbed; await radiology report. Coding Level of Care Code Off vis,est,level 3 Diagnoses Closed nondisplaced fracture of distal phalanx of right index finger with routine healing, subsequent encounter S62.660D Encounter type: subsequent encounter Fracture type: closed Fracture alignmen (more content not included)... Normal [facility] Relevant diagnostic tests/la boratory data Narrativeon 10-13-2024 MEDS REVIEW Documentation of current medications (procedure) [employer] Work Phone: MEDS REVIEWD Medications reviewed without changes [employer] Work Phone: Finger(s) Min 2 Viewson Finger(s) Min 2 Views [facility] [address] [place], [place] [address] [phone] Finger(s) Min 2 Views MR#: [id number] Acct: [id number] Name: ROJELIO ARAMBULA Rep #: [id number] : 1945 F 78 From: Scotty Kingston MD PCP: Dr. Marcos Garcia MD Status: DEP AMB Study: Finger(s) Min 2 Views Date of Exam: 09/29/24 Exam# [id number] Ordering Dr: Melody Loya EXAM: XR Right Fingers, 2 or More Views CLINICAL INDICATION: FX FOLLOW UP TECHNIQUE: Frontal, lateral and oblique views of the fingers of the right hand. COMPARISON: XR Finger dated 09/10/2024 FINDINGS: BONES/JOINTS: Comminuted mildly displaced fracture of the distal 2nd phalanx without evidence of significant healing since the prior exam. No dislocation. SOFT TISSUES: Unremarkable. No radiopaque foreign body. RAD/Finger(s) Min 2 Views IMPRESSION: Comminuted mildly displaced fracture of the distal 2nd phalanx without evidence of significant healing since the prior exam. Reading [facility] CC: ALINE Loya; Dr. 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 Normal [facility] Orthopedic Visit Reporton Orthopedic Visit Report [facility] [address] [place] [address] OFFICE VISIT Date of Service: 09/29/24 MR#: [id number] Acct: [id number] Name: ROJELIO ARAMBULA Rep #: [id number] : 1945 Provider: ALINE weems Age/Sex: 78/F Location: [facility] [place] Status: Signed Intake Vital Signs 09/10/24 10:23 Height 5 ft 1 in Intake Visit Reasons: RIGHT HAND Chief Complaint: right hand index finger Accompanied by: Self Is patient in pain?: No Allergies amoxicillin Allergy (Mild, Verified 09/29/24 09:24) Rash morphine Allergy (Mild, Verified 09/29/24 09:24) Rash Medications ???Medication ???Instructions ???Recorded ???Confirmed ???Type ergocalciferol (vitamin D2) 1,250 1,250 mcg PO QWEEK 09/02/2409/29 History mcg (50,000 unit) capsule levothyroxine 88 mcg tablet 88 mcg PO QDAY 09/02/24 09/29/24 H istory lisinopril 20 2 tab PO QDAY 09/02/24 09/29/24 Hi story mg-hydrochlorothiazide 12.5 mg tablet meloxicam 7.5 mg tablet 7.5 mg PO QDAY PRN pain 09/02/24 0 09/29/24 History rosuvastatin 5 mg tablet 5 mg PO QDAY 09/02/24 09/29/24 His tory semaglutide 0.5 mg/0.1 mL mg subcut 09/02/24 09/29/24 Histor y subcutaneous syringe sertraline 100 mg tablet 100 mg PO QDAY 09/02/24 09/29/24 H istory multivitamin 1 tab PO QAM 09/03/24 09/29/24 His tory Have you fallen in the [...] provided and the decisions made by me, OUMAR SethiC 09/29/24 0920. Part of today???s visit was documented by Elizabeth Roque ATC, acting as scribe. ROJELIO ARAMBULA is a 78 year old F here today for right hand index finger fracture follow-up DOI 09/02/2024. Patient denies any pain in the finger today. She states other than the finger tip and fingernail being bruised she is doing well. Agree with above. Patient states she is doing well and has no pain to the distal index finger. She did see dermatology who stated her nail may end up falling off at some point. Patient with full range of motion of all finger joints. She stopped using her brace approximately 1 week ago and has had no symptom aggravation and resumed most routine activities. ROS Const All systems reviewed are unremarkable [...] Denies vomiting Musc Reports as per HPI Details: No pain, full ROM and activity Neuro No dizziness Psych Reports system reviewed and no additional complaints, except as documented Sancho/Lymph Denies easy bleeding and Denies easy bruising Ortho Exam Right Wrist/Hand Date of injury: 09/02/24 WRIST: R index finger: Skin is pink, warm, dry and intact. There is no remaining ecchymosis bruising to the distal phalanx, subungual hematoma resolved with ecchymosis remaining under the nail covering approximately 50% of the proximal nailbed portion. Skin is easily compressible and nontender; distal sensory is intact. No with palpation or movement of the distal phalanx There is no pain over the DIP, PIP or MCP joints. Baseline range of motion at the MCP, PIP joint, and DIP joints with no symptom aggravation Distal cap refill brisk at 2 seconds with distal sensation intact Supplemental Info Independent review of finger x-rays compared to initial films. Continues to be a distal phalanx fracture with no displacement. There appears to be blunted edges at the distal edge of the distal phalanx consistent with callus formation. The distal fracture fragment appears to be reabsorbing; await radiology report. Coding Level of Care Code Off vis,est,level 3 Diagnoses Closed nondisplaced fracture of distal phalanx of right index finger with routine healing, subsequent encounter S62.660D Encounter type: subsequent encounter Fracture type: closed Fracture alignment: nondisplaced Fracture healing: with routine healing Subungual hematoma of finger (more content not included)... Normal [facility] Absolute lymphocyte countOrd ered By: Marcos Garcia on 09-17-2024 Lymphocytes Auto (Unsp spec) [#/Vol] 1.35 10*3/uL 0.83-4.51 [facility] Absolute neutrophil countOrd ered By: Marcos Garcia on 09-17-2024 Neutrophils (Bld) [#/Vol] 2.5 10*3/uL 2.0-7.7 [facility] Anion gap in Serum or Plasma Ordered By: Marcos Garcia on 09-17-2024 Anion gap [Moles/Vol] 13 mmol/L 5-15 [facility] [place] [facility] Automated lymphocyte count a s percentage of total leukocytesOrdered By: Marcos Garcia on 09-17-2024 Lymphocytes/100 WBC Auto (Unsp spec) 31.5 % 19- [facility] BUN/creatinine ratioOrdered By: Marcos Garcia on 09-17-2024 Urea nitrogen/Creatinine [Mass ratio] 28.7 mg/mg High 10-20 [facility] Basophil percentageOrdered B y: Marcos Garcia on 09-17-2024 Basophils/100 WBC (Bld) 0.7 % 0-1 [facility] Bilirubin, totalOrdered By: Marcos Garcia on 09-17-2024 Bilirubin [Mass/Vol] 0.55 mg/dL 0.00-1.30 [facility] CBC W/Diff, Automatedon 08-24 Absolute Lymph 1.35 X10 3/uL Normal 0.83-4.51 [facility] Comment on above: Order Comment: Order Date: 09/17/24 Order Info: 0184-1 - CBCD Performed By: #### L 501.9985, L500.4100, L501.9520, L100.0100, L500.4050 #### [facility] [address] [place], [address] Absolute Neut 2.5 X10 3/uL Normal 2.0-7.7 [facility] Comment on above: Order Comment: Order Date: 09/17/24 Order Info: 0184-1 - CBCD Performed By: #### L 501.9985, L500.4100, L501.9520, L100.0100, L500.4050 #### [facility] [address] [place], [address] Basophils/100 WBC (Bld) 0.7 % Normal 0-1 [facility] Comment on above: Order Comment: Order Date: 09/17/24 Order Info: 0184-1 - CBCD Performed By: #### L 501.9985, L500.4100, L501.9520, L100.0100, L500.4050 #### [facility] [address] [place], [address] Eosinophils/100 WBC (Bld) 2.1 % Normal 0-5 [facility] Comment on above: Order Comment: Order Date: 09/17/24 Order Info: 0184- - CBCD Performed By: #### L 501.9985, L500.4100, L501.9520, L100.0100, L500.4050 #### [facility] [address] [place], [address] Erythrocyte distribution width (RBC) [Ratio] 12.1 % Normal 11.6-14.6 [facility] Comment on above: Order Comment: Order Date: 09/17/24 Order Info: 0184- - CBCD Performed By: #### L 501.9985, L500.4100, L501.9520, L100.0100, L500.4050 #### [facility] [address] [place], [address] Hematocrit (Bld) [Volume fraction] 35.4 % Low 37-47 [facility] Comment on above: Order Comment: Order Date: 09/17/24 Order Info: 0184- - CBCD Performed By: #### L 501.9985, L500.4100, L501.9520, L100.0100, L500.4050 #### [facility] [address] [place], [address] Hemoglobin (Bld) [Mass/Vol] 11.8 g/dL Low 12.0-15.0 [facility] Comment on above: Order Comment: Order Date: 09/17/24 Order Info: 0184- - CBCD Performed By: #### L 501.9985, L500.4100, L501.9520, L100.0100, L500.4050 #### [facility] [address] [place], [address] IG% 0.200 Normal 0.0-0.9 [facility] Comment on above: Order Comment: Order Date: 09/17/24 Order Info: 0184-1 - CBCD Result Comment: IG% - Immature Granulocytes (promyelocytes, myelocytes and metamyelocytes) > 1% indicates that a LEFT SHIFT is Present. Performed By: #### L 501.9985, L500.4100, L501.9520, L100.0100, L500.4050 #### [facility] [address] [place], [address] Lymphocytes/100 WBC (Bld) 31.5 % Normal 19-41 [facility] Comment on above: Order Comment: Order Date: 09/17/24 Order Info: 0184-1 - CBCD Performed By: #### L 501.9985, L500.4100, L501.9520, L100.0100, L500.4050 #### [facility] [address] [place], [address] MCH (RBC) [Entitic mass] 30.3 pg Normal 27.0-32.0 [facility] Comment on above: Order Comment: Order Date: 09/17/24 Order Info: 0184-1 - CBCD Performed By: #### L 501.9985, L500.4100, L501.9520, L100.0100, L500.4050 #### [facility] [address] [place], [address] MCHC (RBC) [Mass/Vol] 33.3 g/dL Normal 32-36 [facility] [place] [facility] Comment on above: Order Comment: Order Date: 09/17/24 Order Info: 0184-1 - CBCD Performed By: #### L 501.9985, L500.4100, L501.9520, L100.0100, L500.4050 #### [facility] [address] [place], [address] MCV (RBC) [Entitic vol] 91.0 fL Normal 81-99 [facility] Comment on above: Order Comment: Order Date: 09/17/24 Order Info: 0184-1 - CBCD Performed By: #### L 501.9985, L500.4100, L501.9520, L100.0100, L500.4050 #### [facility] [address] [place], [address] Monocytes/100 WBC (Bld) 6.8 % Normal 0-10 [facility] Comment on above: Order Comment: Order Date: 09/17/24 Order Info: 0184- - CBCD Performed By: #### L 501.9985, L500.4100, L501.9520, L100.0100, L500.4050 #### [facility] [address] [place], [address] Neutrophils/100 WBC (Bld) 58.7 % Normal 47-70 [facility] Comment on above: Order Comment: Order Date: 09/17/24 Order Info: 0184-1 - CBCD Performed By: #### L 501.9985, L500.4100, L501.9520, L100.0100, L500.4050 #### [facility] [address] [place], [address] Nucleated RBC (Bld) [#/Vol] 0 10*3/uL Normal 0-5 [facility] Comment on above: Order Comment: Order Date: 09/17/24 Order Info: 0184-1 - CBCD Performed By: #### L 501.9985, L500.4100, L501.9520, L100.0100, L500.4050 #### [facility] [address] [place], [address] Platelet mean volume (Bld) [Entitic vol] 11.1 fL Normal 6.2-12.0 [facility] Comment on above: Order Comment: Order Date: 09/17/24 Order Info: 0184-1 - CBCD Performed By: #### L 501.9985, L500.4100, L501.9520, L100.0100, L500.4050 #### [facility] [address] [place], [address] Platelets (Bld) [#/Vol] 200 10*3/uL Normal 150-450 [facility] Comment on above: Order Comment: Order Date: 09/17/24 Order Info: 0184-1 - CBCD Performed By: #### L 501.9985, L500.4100, L501.9520, L100.0100, L500.4050 #### [facility] [address] [place], [address] RBC (Bld) [#/Vol] 3.89 10*6/uL Low 4.2-5.4 [facility] Comment on above: Order Comment: Order Date: 09/17/24 Order Info: 0184-1 - CBCD Performed By: #### L 501.9985, L500.4100, L501.9520, L100.0100, L500.4050 #### [facility] [address] [place], [address] RDW SD 40.1 fl Normal 35.1-43.9 [facility] Comment on above: Order Comment: Order Date: 09/17/24 Order Info: 0184-1 - CBCD Performed By: #### L 501.9985, L500.4100, L501.9520, L100.0100, L500.4050 #### [facility] [address] [place], [address] WBC (Bld) [#/Vol] 4.3 10*3/uL Low 4.4-11.0 [facility] Comment on above: Order Comment: Order Date: 09/17/24 Order Info: 0184-1 - CBCD Performed By: #### L 501.9985, L500.4100, L501.9520, L100.0100, L500.4050 #### [facility] [address] [place], [place], [address] Calculated very low density lipoprotein (VLDL) cholesterol measurementOrdered By: Marcos Garcia on 09-17-2024 Calculated very low density lipoprotein (VLDL) cholesterol measurement 17 mg/dL 5-40 [facility] Carbon dioxide, total [Moles /volume] in Central venous bloodOrdered By: Marcos Garcia on 09-17-2024 CO2 [Moles/Vol] 23.4 mmol/L 21.0-32.0 [facility] Chloride assayOrdered By: Braydon Garcia on 09-17-2024 Chloride [Moles/Vol] 105 mmol/L 98-108 [facility] Comprehensive Metabolic Prof ilon 09-17-2024 Albumin [Mass/Vol] 4.3 g/dL Normal 3.4-4.8 [facility] Comment on above: Order Comment: Order Date: 09/17/24 Order Info: 0786-1 - CMP Order Info: [id number] - LIPID Order Info: 3016-3 - TSH Performed By: #### L 501.9985, L500.4100, L501.9520, L100.0100, L500.4050 #### [facility] [address] [place], [address] Albumin/Globulin [Mass ratio] 1.8 {ratio} Normal 0.9-2.4 [facility] Comment on above: Order Comment: Order Date: 09/17/24 Order Info: [id number] - CMP Order Info: [id number] - LIPID Order Info: [id number] - TSH Performed By: #### L 501.9985, L500.4100, L501.9520, L100.0100, L500.4050 #### [facility] [address] [place], [address] ALK PHOS 68 U/L Normal 35-104 [facility] Comment on above: Order Comment: Order Date: 09/17/24 Order Info: 785- - CMP Order Info: - LIPID Order Info: [id number] - TSH Performed By: #### L 501.9985, L500.4100, L501.9520, L100.0100, L500.4050 #### [facility] [address] [place], [address] ALT [Catalytic activity/Vol] 14 U/L Normal <=34 [facility] Comment on above: Order Comment: Order Date: 09/17/24 Order Info: [id number] - CMP Order Info: - LIPID Order Info: [id number] - TSH Performed By: #### L 501.9985, L500.4100, L501.9520, L100.0100, L500.4050 #### [facility] [address] [place], [address] AST [Catalytic activity/Vol] 22 U/L Normal <=31 [facility] Comment on above: Order Comment: Order Date: 09/17/24 Order Info: [id number] - CMP Order Info: - LIPID Order Info: [id number] - TSH Performed By: #### L 501.9985, L500.4100, L501.9520, L100.0100, L500.4050 #### [facility] [address] [place], [address] Bilirubin [Mass/Vol] 0.55 mg/dL Normal 0.00-1.30 [facility] Comment on above: Order Comment: Order Date: 09/17/24 Order Info: [id number] - CMP Order Info: - LIPID Order Info: [id number] - TSH Performed By: #### L 501.9985, L500.4100, L501.9520, L100.0100, L500.4050 #### [facility] [address] [place], [address] BUN/CRE 28.7 RATIO High 10-20 [facility] Comment on above: Order Comment: Order Date: 09/17/24 Order Info: [id number] - CMP Order Info: - LIPID Order Info: [id number] - TSH Performed By: #### L 501.9985, L500.4100, L501.9520, L100.0100, L500.4050 #### [facility] [address] [place], [address] Calcium [Mass/Vol] 9.9 mg/dL Normal 7.6-11.0 [facility] Comment on above: Order Comment: Order Date: 09/17/24 Order Info: [id number] - CMP Order Info: - LIPID Order Info: [id number] - TSH Performed By: #### L 501.9985, L500.4100, L501.9520, L100.0100, L500.4050 #### [facility] [address] [place], [address] Chloride [Moles/Vol] 105 mmol/L Normal 98-108 [facility] Comment on above: Order Comment: Order Date: 09/17/24 Order Info: [id number] - CMP Order Info: - LIPID Order Info: [id number] - TSH Performed By: #### L 501.9985, L500.4100, L501.9520, L100.0100, L500.4050 #### [facility] [address] [place], [address] CO2 [Moles/Vol] 23.4 mmol/L Normal 21.0-32.0 [facility] Comment on above: Order Comment: Order Date: 09/17/24 Order Info: [id number] - CMP Order Info: [id number] - LIPID Order Info: 3 - TSH Performed By: #### L 501.9985, L500.4100, L501.9520, L100.0100, L500.4050 #### [facility] [address] [place], [address] Creatinine [Mass/Vol] 1.14 mg/dL Normal 0.70-1.20 [facility] [place] [facility] Comment on above: Order Comment: Order Date: 09/17/24 Order Info: 785- - CMP Order Info: [id number] - LIPID Order Info: 3 - TSH Performed By: #### L 501.9985, L500.4100, L501.9520, L100.0100, L500.4050 #### [facility] [address] [place], [place], [address] GAP 13 Normal 5-15 [facility] Comment on above: Order Comment: Order Date: 09/17/24 Order Info: 785- - CMP Order Info: - LIPID Order Info: [id number] - TSH Performed By: #### L 501.9985, L500.4100, L501.9520, L100.0100, L500.4050 #### [facility] [address] [place], [place], [address] GFR/1.73 sq M.predicted among non-blacks MDRD (S/P/Bld) [Vol rate/Area] 49 mL/min/{1.73_m2} Low >60 [facility] Comment on above: Order Comment: Order Date: 09/17/24 Order Info: [id number] - CMP Order Info: - LIPID Order Info: [id number] - TSH Result Comment: mL/m in/1.73m2 CKD-EPI Creatinine Equation (2020) Performed By: #### L 501.9985, L500.4100, L501.9520, L100.0100, L500.4050 #### [facility] [address] [place], [place], [address] Globulin (S) [Mass/Vol] 2.4 g/dL Normal 2.2-4.2 [facility] Comment on above: Order Comment: Order Date: 09/17/24 Order Info: 785- - CMP Order Info: - LIPID Order Info: [id number] - TSH Performed By: #### L 501.9985, L500.4100, L501.9520, L100.0100, L500.4050 #### [facility] [address] [place], [address] Glucose [Mass/Vol] 88 mg/dL Normal 70-99 [facility] Comment on above: Order Comment: Order Date: 09/17/24 Order Info: [id number] - CMP Order Info: [id number] - LIPID Order Info: 3 - TSH Performed By: #### L 501.9985, L500.4100, L501.9520, L100.0100, L500.4050 #### [facility] [address] [place], [address] Potassium [Moles/Vol] 3.9 mmol/L Normal 3.3-5.1 [facility] [place] [facility] Comment on above: Order Comment: Order Date: 09/17/24 Order Info: [id number] - CMP Order Info: [id number] - LIPID Order Info: [id number] - TSH Performed By: #### L 501.9985, L500.4100, L501.9520, L100.0100, L500.4050 #### [facility] [address] [place], [address] Sodium [Moles/Vol] 141 mmol/L Normal 133-145 [facility] Comment on above: Order Comment: Order Date: 09/17/24 Order Info: [id number] - CMP Order Info: [id number] - LIPID Order Info: [id number] - TSH Performed By: #### L 501.9985, L500.4100, L501.9520, L100.0100, L500.4050 #### [facility] [address] [place], [address] T PROT 6.7 g/dL Normal 5.9-8.4 [facility] Comment on above: Order Comment: Order Date: 09/17/24 Order Info: [id number] - CMP Order Info: [id number] - LIPID Order Info: [id number] - TSH Performed By: #### L 501.9985, L500.4100, L501.9520, L100.0100, L500.4050 #### [facility] [address] [place], [address] Urea nitrogen [Mass/Vol] 33 mg/dL High 4-19 [facility] Comment on above: Order Comment: Order Date: 09/17/24 Order Info: [id number] - CMP Order Info: [id number] - LIPID Order Info: [id number] - TSH Performed By: #### L 501.9985, L500.4100, L501.9520, L100.0100, L500.4050 #### [facility] [address] [place], [address] Eosinophil percentageOrdered By: Marcos Garcia on 09-17-2024 Eosinophils/100 WBC (Bld) 2.1 % 0-5 [facility] Erythrocyte distribution wid th ratioOrdered By: Marcos Garcia on 09-17-2024 Erythrocyte distribution width (RBC) [Ratio] 12.1 % 11.6-14.6 [facility] Erythrocyte distribution wid th standard deviationOrdered By: Marcos Garcia on 09-17-2024 Erythrocyte distribution width (RBC) [Ratio] 40.1 fl 35.1-43.9 [facility] Glomerular filtration rate ( GFR) estimation/1.73 sq m using serum, plasma, or whole bOrdered By: Marcos Garcia on 09-17-2024 GFR/1.73 sq M.predicted among non-blacks MDRD (S/P/Bld) [Vol rate/Area] 49 mL/min/{1.73_m2} Low >60 [facility] Comment on above: mL/min/1.73m2 CKD-EP I Creatinine Equation (2020) Hematocrit Auto (Bld) [Volum e fraction]Ordered By: Marcos Garcia on 09-17-2024 Hematocrit (Bld) [Volume fraction] 35.4 % Low 37-47 [facility] Hemoglobin A1con 09-17-2024 HbA1c (Bld) [Mass fraction] 5.3 % Normal <=5.6 [facility] Comment on above: Order Comment: Order Date: 09/17/24 Order Info: [id number] - A1C Result Comment: Norm al < 5.7 % Prediabetic 5.7 - 6.4 % Diabetic >or= 6.5 % Please note range changes. Performed By: #### L 501.9985, L500.4100, L501.9520, L100.0100, L500.4050 #### [facility] [address] [place], [address] Hemoglobin A1c percentageOrd ered By: Marcos Garcia on 09-17-2024 HbA1c (Bld) [Mass fraction] 5.3 % <5.7 [facility] Comment on above: Normal < 5.7 % Predi abetic 5.7 - 6.4 % Diabetic >or= 6.5 % Please note range changes. Hemoglobin measurementOrdere d By: Marcos Garcia on 09-17-2024 Hemoglobin (Bld) [Mass/Vol] 11.8 g/dL Low 12.0-15.0 [facility] Immature granulocytes/100 WB C Auto (Bld)Ordered By: Marcos Garcia on 09-17-2024 Immature granulocytes/100 WBC (Bld) 0.200 % 0.0-0.9 [facility] Comment on above: IG% - Immature Granu locytes (promyelocytes, myelocytes and metamyelocytes) > 1% indicates that a LEFT SHIFT is Present. LDL calc ser/plasOrdered By: Marcos Garcia on 09-17-2024 Cholesterol in LDL [Mass/Vol] 74 mg/dL [facility] Comment on above: Xxzjdzhhvh=552-780 m g/dL & Higher Ewue=043 mg/dL or greater Laboratory - Chemistry and C hemistry - challengeOrdered By: Marcos Garcia on 09-17-2024 AST [Catalytic activity/Vol] 22 U/L <32 [facility] Lipid Profileon 09-17-2024 CHOL:HDL 2.32 Normal [facility] Comment on above: Order Comment: Order Date: 09/17/24 Order Info: [id number] - CMP Order Info: [id number] - LIPID Order Info: [id number] - TSH Performed By: #### L 501.9985, L500.4100, L501.9520, L100.0100, L500.4050 #### [facility] [address] [place], [address] Cholesterol [Mass/Vol] 161 mg/dL Normal <=200 [facility] Comment on above: Order Comment: Order Date: 09/17/24 Order Info: 0786-1 - CMP Order Info: [id number] - LIPID Order Info: [id number] - TSH Result Comment: Chol esterol level, Desirable <200 mg/dL Borderline high cholesterol 200-239 mg/dL High cholesterol >=240 mg/dL Recommendations of the NCEP Adult Treatment Panel for the following risk-cutoff thresholds for the [place] population. Performed By: #### L 501.9985, L500.4100, L501.9520, L100.0100, L500.4050 #### [facility] [address] [place], [address] Cholesterol in HDL [Mass/Vol] 69 mg/dL Normal [facility] Comment on above: Order Comment: Order Date: 09/17/24 Order Info: [id number] - CMP Order Info: [id number] - LIPID Order Info: [id number] - TSH Result Comment: Aaliyah onal Cholesterol Education Program (NCEP) guidelines: <40 mg/dL: Low HDL-cholesterol (major risk factor for CHD) >= 60 mg/dL: High HDL-cholesterol (negative risk factor for CHD) HDL-cholesterol is affected by a number of factors, e.g. smoking, exercise, hormones, sex and age. Performed By: #### L 501.9985, L500.4100, L501.9520, L100.0100, L500.4050 #### [facility] [address] [place], [place], [address] Cholesterol in LDL [Mass/Vol] 74 mg/dL Normal [facility] Comment on above: Order Comment: Order Date: 09/17/24 Order Info: [id number] - CMP Order Info: [id number] - LIPID Order Info: 3 - TSH Result Comment: Bord vnjedx=240-774 mg/dL Higher Fvyw=972 mg/dL or greater Performed By: #### L 501.9985, L500.4100, L501.9520, L100.0100, L500.4050 #### [facility] [address] [place], [place], [address] Cholesterol in VLDL [Mass/Vol] 17 mg/dL Normal 5-40 [facility] Comment on above: Order Comment: Order Date: 09/17/24 Order Info: 0786 - CMP Order Info: [id number] - LIPID Order Info: [id number] - TSH Performed By: #### L 501.9985, L500.4100, L501.9520, L100.0100, L500.4050 #### [facility] [address] [place], [place], [address] Triglyceride [Mass/Vol] 86 mg/dL Normal [facility] Comment on above: Order Comment: Order Date: 09/17/24 Order Info: [id number]- - CMP Order Info: [id number] - LIPID Order Info: 3 - TSH Result Comment: The drugs N-Acetylcysteine and Metamizole may falsely depress this assay. Normal range: <150 mg/dL Borderline High: 150-199 mg/dL High: 200-499 mg/dL Very High: >500 mg/dL Performed By: #### L 501.9985, L500.4100, L501.9520, L100.0100, L500.4050 #### [facility] [address] [place], [place], [address] MCV (mean corpuscular volume ) determinationOrdered By: Marcos Garcia on 09-17-2024 MCV (RBC) [Entitic vol] 91.0 fL 81-99 [facility] Mean corpuscular hemoglobin (MCH) determinationOrdered By: Marcos Garcia on 09-17-2024 MCH (RBC) [Entitic mass] 30.3 pg 27.0-32.0 [facility] Mean corpuscular hemoglobin concentration (MCHC) determinationOrdered By: Marcos Garcia on 09-17-2024 MCHC (RBC) [Mass/Vol] 33.3 g/dL 32-36 [facility] [place] [facility] Mean platelet volume determi nationOrdered By: Marcos Garcia on 09-17-2024 Platelet mean volume (Bld) [Entitic vol] 11.1 fL 6.2-12.0 [facility] Monocyte percentageOrdered B y: Marcos Garcia on 09-17-2024 Monocytes/100 WBC (Bld) 6.8 % 0-10 [facility] Neutrophil percentageOrdered By: Marcos Garcia on 09-17-2024 Neutrophils/100 WBC (Bld) 58.7 % 47-70 [facility] Nucleated red blood cell per centageOrdered By: Marcos Garcia on 09-17-2024 Nucleated RBC/100 WBC (Bld) [Ratio] 0 % 0-5 [facility] Platelet countOrdered By: Braydon Garcia on 09-17-2024 Platelets (Bld) [#/Vol] 200 10*3/uL 150-450 [facility] Potassium measurement (mass/ volume)Ordered By: Marcos Garcia on 09-17-2024 Potassium (Unsp spec) [Mass/Vol] 3.9 mmol/L 3.3-5.1 [facility] RBC Auto (Bld) [#/Vol]Ordere d By: Marcos Garcia on 09-17-2024 RBC (Bld) [#/Vol] 3.89 10*6/uL Low 4.2-5.4 [facility] Screening total cholesterol/ high density lipoprotein (HDL) cholesterol ratioOrdered By: Marcos Garcia on 09-17-2024 Cholesterol.total/Choles terol in HDL [Mass ratio] 2.32 {ratio} [facility] Serum creatinine measurement (mass/volume)Ordered By: Marcos Garcia on 09-17-2024 Creatinine [Mass/Vol] 1.14 mg/dL 0.70-1.20 [facility] [place] [facility] Serum globulin measurementOr dered By: Marcos Garcia on 09-17-2024 Globulin (S) [Mass/Vol] 2.4 g/dL 2.2-4.2 [facility] Serum glucose measurement (m ass/volume)Ordered By: Marcos Garcia on 09-17-2024 Glucose [Mass/Vol] 88 mg/dL 70-99 [facility] Serum or plasma alanine white otransferase (ALT) measurementOrdered By: Marcos Garcia on 09-17-2024 ALT [Catalytic activity/Vol] 14 U/L <35 [facility] Serum or plasma albumin ceferino urement (mass/volume)Ordered By: Marcos Garcia on 09-17-2024 Albumin [Mass/Vol] 4.3 g/dL 3.4-4.8 [facility] Serum or plasma albumin/glob ulin mass ratioOrdered By: Marcos Jose on 09-17-2024 Albumin/Globulin [Mass ratio] 1.8 {ratio} 0.9-2.4 [facility] Serum or plasma alkaline estevan sphatase measurementOrdered By: Marcos Garcia on 09-17-2024 ALP [Catalytic activity/Vol] 68 U/L 35-104 [facility] Serum or plasma calcium ceferino urement (mass/volume)Ordered By: Marcos Garcia on 09-17-2024 Calcium [Mass/Vol] 9.9 mg/dL 7.6-11.0 [facility] Serum or plasma cholesterol in HDL measurement (mass/volume)Ordered By: Marcos Garcia on 09-17-2024 Cholesterol in HDL [Mass/Vol] 69 mg/dL >40 [facility] Comment on above: National Cholesterol Education Program (NCEP) guidelines:<40 mg/dL: Low HDL-cholesterol (major risk factor for CHD)>= 60 mg/dL: High HDL-cholesterol (negative risk factor for CHD)HDL-cholesterol is affected by a number of factors, e.g. smoking, exercise, hormones, sex and age. Serum or plasma cholesterol measurement (mass/volume)Ordered By: Marcos Garcia on 09-17-2024 Cholesterol [Mass/Vol] 161 mg/dL <201 [facility] Comment on above: Cholesterol level, D esirable <200 mg/dLBorderline high cholesterol 200-239 mg/dLHigh cholesterol >=240 mg/dLRecommendations of the NCEP Adult Treatment Panel for the following risk-cutoff thresholds for the [place] population. Serum or plasma urea nitroge n measurement (mass/volume)Ordered By: Marcos Jose on 09-17-2024 Urea nitrogen [Mass/Vol] 33 mg/dL High 4-19 [facility] Sodium levelOrdered By: Lidia caballero Jose on 09-17-2024 Sodium [Moles/Vol] 141 mmol/L 133-145 [facility] TSH DL <= 0.005 mIU/L QnOrde red By: Marcos Jose on 09-17-2024 TSH Qn 0.431 uIU/mL 0.300-4.200 [facility] Thyroid Stim Hormone (TSH)on 09-17-2024 TSH 0.431 uIU/mL Normal 0.300-4.200 [facility] Comment on above: Order Comment: Order Date: 09/17/24 Order Info: [id number] - CMP Order Info: [id number] - LIPID Order Info: [id number] - TSH Performed By: #### L 501.9985, L500.4100, L501.9520, L100.0100, L500.4050 #### [facility] [address] [place], [place], [id number] Total proteinOrdered By: Geetha Ramirezke on 09-17-2024 Protein [Mass/Vol] 6.7 g/dL 5.9-8.4 [facility] Triglycerides measurementOrd ered By: Marcos Jose on 09-17-2024 Triglyceride [Mass/Vol] 86 mg/dL <199 [facility] Comment on above: The drugs N-Acetylcy steine and Metamizole may falsely depress this assay. Normal range: <150 mg/dLBorderline High: 150-199 mg/dLHigh: 200-499 mg/dLVery High: >500 mg/dL Vitamin D,25 Hydroxyon 09-17 Vitamin D 25-OH 71.9 ng/mL Normal 30-100 [facility] Comment on above: Order Comment: Order Date: 09/17/24Order Info: [id number] - CMPOrder Info: [id number] - LIPIDOrder Info: [id number] - TSH Result Comment: Veena min D Status Deficiency: <20 ng/mL (50nmol/L) Insufficiency: 20-30 ng/mL (50-75 nmol/L) Sufficiency: 30-100 ng/mL (75-250 nmol/L) Toxicity: >100 ng/mL (>250 nmol/L) Performed By: #### L 506.1001 ####[facility] [address] [place], [address] White blood cell (WBC) count Ordered By: Marcos Garcia on 09-17-2024 WBC (Bld) [#/Vol] 4.3 10*3/uL Low 4.4-11.0 [facility] Finger(s) Min 2 Viewson 08-23 Finger(s) Min 2 Views [facility] [address] [place], [place] [address] Finger(s) Min 2 Views MR#: [id number] Acct: [id number] Name: ROJELIO ARAMBULA Rep #: [id number] : 1945 F 78 From: Rukhsana busby MD PCP: Dr. Marcos Garcia MD Status: DEP AMB Study: Finger(s) Min 2 Views Date of Exam: 09/10/24 Exam# [id number] Ordering Dr: Melody Loya FELT CUTTING MACHINE OPERATOR-C PROCEDURE: FINGER(S) MIN 2 VIEWS 09/10/2024 REASON [...] the proximal interphalangeal joint, unchanged. Reading Location: [place] [address] CC: ALINE Loya; Dr. 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 Normal [facility] Orthopedic Visit Reporton Orthopedic Visit Report [facility] [address] [place] [address] OFFICE VISIT Date of Service: 09/10/24 MR#: [id number] Acct: [id number] Name: ROJELIO ARAMBULA Rep #: [id number] : 1945 Provider: ALINE weems Age/Sex: 78/F Location[place] [facility] [place] Status: Signed Intake Vital Signs 09/03/24 09:32 [...] provided and the decisions made by me, Melody Loya, FELT CUTTING MACHINE OPERATOR-C 09/10/24 1022. Part of today???s visit was [...] no concerns for infection. Patient purchased an [facility] finger splint that gives good support [...] closed Fracture (more content not included)... Normal [facility] Orthopedic Visit Reporton Orthopedic Visit Report [facility] [address] [place], [place] [id number] OFFICE VISIT Date of Service: 09/03/24 MR#: [id number] Acct: [id number] Name: CHELAJOHNROJELIO TIBURCIO Rep #: [id number] : 1945 Provider: ALINE weems Age/Sex: 78/F Location: [facility] [place] Status: Signed Intake Vital Signs 09/02/24 13:34 [...] decisions made by me, ALINE Sethi 09/03/24 0930. Part of today???s visit was documented by [...] have a finger splint on today. [facility] placed her in a splint yesterday but [...] Supplemental Info (more content not included)... Normal [facility] Finger(s) Min 2 Viewson 06-1 1-2025 Finger(s) Min 2 Views [facility] [address] [place], [place] [address] Finger(s) Min 2 Views MR#: [id number] Acct: [id number] Name: ROJELIO ARAMBULA Rep #: [id number] : 1945 F 78 From: Dennis Zamorano PCP: Dr. Marcos Garcia MD Status: REG CLI Study: Finger(s) Min 2 Views Date of Exam: 09/02/24 Exam# [id number] Ordering Dr: Rosas Pool PA PROCEDURE: FINGER(S) MIN 2 VIEWS 09/02/2024 REASON [...] distal interphalangeal joint is noted. Reading Location: [address] CC: Dr. Marcos Garcia MD; RADHA Tomlinson Web Ui Software Engineer: Signed Normal [facility] Urgent Care Visit Reporton 0 09-02-2024 Urgent Care Visit Report [facility] [address] [facility], [address] [place] [address] OFFICE VISIT Date of Service: 09/02/24 MR#: [id number] Acct: [id number] Name: ROJELIO ARAMBULA Rep #: [id number] : 1945 Provider: RADHA Tomlinson Age/Sex: 78/F Location: [facility] [place] Status: Signed Intake Vital Signs 09/02/24 13:34 Height 5 ft 1 in Weight: 136 lb BMI 25.7 BP 120/66 Blood Pressure Location Lt brachial Position Sitting Respiration 15 Pulse 84 Pulse Source NIBP Temp 98.2 F Temp Source Oral Pulse Oximetry (%) 96 Oxygen Delivery Method room air Intake Visit Reasons: R HAND/INDEX FINGER/PAIN/INJURY Chief Complaint: right index finger Mail S[employer] Delivery Required: No Is patient in pain?: Yes [...] to same. denies additional injuries. [facility] Medical History (Updated 09/02/24 @ 13:39 by [...] DIPJ, alleviated minimally with isolation. PMH NC. Qlter-dinh-qqtfzlwe. No tjbf-dqs-kateopx products diagnosis. No other associated symptoms and no other alleviating/aggravatin g factors. ROS Const Constitutional: No other (As [...] measures as instructed today. Orthopedic referral to [facility]. [facility]-up with the [facility] on an as-needed basis only. Patient states acknowledging understanding all the above. This note was generated with Elyssaf[employer] dictation software. It may contain incorrect words, spelling, and punctuation that were not noted in checking the note before signing. Orders: Orders Finger(s) Min 2 Views Today S69.90XA - Unspecified injury of unspecified wrist, hand and finger(s), initial encounter Referrals Orthopedics S62.630A - Displaced fracture of distal phalanx of right index finger, initial encounter for closed fracture Clinical Quality (more content not included)... Normal [facility] SCRN MAMM (CAD)W/ROBBIN Singer n 04-13-2024 SCRN MAMM (CAD[facility]W/[facility] [address] [place] [address] SCRN MAMM (CAD)W/ROBBIN BILAT MR#: [id number] Acct: [id number] Name: ROJELIO ARAMBULA Rep #: [id number] : 1945 F 78 From: Rafi baca MD PCP: Dr. Marcos Garcia MD Status: DEP CLI Study: SCRN MAMM (CAD)W/ROBBIN BILAT Date of Exam: 03/26 Exam# [id number] Ordering Dr: Marcos Garcia MD PROCEDURE: SCRN [...] of the results by letter. Reading Location: [place] [address] CC: Dr. 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 Normal [facility] Hemoglobin A1con 03-30-2024 HbA1c (Bld) [Mass fraction] 6.0 % High 3.8-5.6 [facility] Comment on above: Order Comment: Order Date: 03/30/24Order Info: [id number] - A1C Result Comment: Norm al < 5.7 % Prediabetic 5.7 - 6.4 % Diabetic >or= 6.5 % Please note range changes. Performed By: #### L 506.1000, L501.9985, L501.9520 ####[facility] [address] [place], [place], [address] Thyroid Stim Hormone (TSH)on 03-30-2024 TSH 1.250 uIU/mL Normal 0.358-3.740 [facility] Comment on above: Order Comment: Order Date: 03/30/24Order Info: [id number] - TSH Performed By: #### L 506.1000, L501.9985, L501.9520 ####[facility] [address] [place], [address] Vitamin D,25 Hydroxyon 03-30 Vitamin D 25-OH 42.9 ng/mL Normal [facility] Comment on above: Order Comment: Order Date: 03/30/24Order Info: [id number] - VITD25 Result Comment: Veena min D 25(OH) Status Range Deficiency <20 ng/mL (50nmol/L) Insufficiency 20 - 30 ng/mL (50 - 75 nmol/L) Sufficiency 30 - 100 ng/mL (75 - 250 nmol/L) Toxicity >100 ng/mL (>250 nmol/L) Performed By: #### L 506.1000, L501.9985, L501.9520 ####[facility] [address] [place], [place], [address] NM BONE WHOLE BODYon 022 [facility] CBC W Auto Differential pane l (Bld)on 12-14-2021 Basophils (Bld) [#/Vol] 0.05 10*3/uL Normal <0.11 [facility] Comment on above: Order Comment: Speci men Type: BLOOD SPECIMEN Ordering Facility: [facility] Address: [address] [place] [address] Performed By: #### 5 7021-8 #### [facility] CLIA [id number] [address] [place] [address] [address] [place] Basophils/100 WBC (Bld) 0.9 % Normal [facility] Comment on above: Order Comment: Speci men Type: BLOOD SPECIMEN Ordering Facility: [employer]. Address: [address] [place] [address] Performed By: #### 5 7021-8 #### [facility] CLIA [id number] [address] [place] [address] [place] Differential cell count method Nom (Bld) Auto Normal [facility] Comment on above: Order Comment: Speci men Type: BLOOD SPECIMEN Ordering Facility: [employer]. Address: [address] [place] [address] Performed By: #### 5 7021-8 #### [facility] CLIA [id number] [address] [place] [address] [place] Eosinophils (Bld) [#/Vol] 0.33 10*3/uL Normal <0.46 [facility] Comment on above: Order Comment: Speci men Type: BLOOD SPECIMEN Ordering Facility: [employer] Address: [address] [place] [address] Performed By: #### 5 7021-8 #### [facility] CLIA [id number] [address] [place] [address] [place] Eosinophils/100 WBC (Bld) 6.3 % Normal [facility] Comment on above: Order Comment: Speci men Type: BLOOD SPECIMEN Ordering Facility: [employer] Address: [address] [place] [address] Performed By: #### 5 7021-8 #### [facility] CLIA [id number] [address] [place] [address] [place] Erythrocyte distribution width (RBC) [Ratio] 12.2 % Normal 11.5-15.0 [facility] Comment on above: Order Comment: Speci men Type: BLOOD SPECIMEN Ordering Facility: [employer] Address: [address] [place] [address] Performed By: #### 5 7021-8 #### [facility] CLIA [id number] [address] [place] [address] [place] Hematocrit (Bld) [Volume fraction] 36.4 % Normal 36.0-46.0 [facility] Comment on above: Order Comment: Speci men Type: BLOOD SPECIMEN Ordering Facility: [employer]. Address: [address] [place] [address] Performed By: #### 5 7021-8 #### [facility] CLIA [id number] [address] [place] [address] [place] Hemoglobin (Bld) [Mass/Vol] 12.0 g/dL Normal 11.5-15.5 [facility] Comment on above: Order Comment: Speci men Type: BLOOD SPECIMEN Ordering Facility: [employer]. Address: [address] [place] [address] Performed By: #### 5 7021-8 #### [facility] CLIA [id number] [address] [place] [address] [place] IMMATURE GRAN % 0.4 % Normal [facility] Comment on above: Order Comment: Speci men Type: BLOOD SPECIMEN Ordering Facility: [employer]. Address: [address] [place] [address] Performed By: #### 5 7021-8 #### [facility] CLIA [id number] [address] [place] [address] [place] IMMATURE GRAN ABS <0.03 Normal <0.10 [facility] Comment on above: Order Comment: Speci men Type: BLOOD SPECIMEN Ordering Facility: [employer]. Address: [address] [place] [address] Performed By: #### 5 7021-8 #### [facility] CLIA [id number] [address] [place] [address] [place] Lymphocytes (Bld) [#/Vol] 1.44 10*3/uL Normal 1.00-4.00 [facility] Comment on above: Order Comment: Speci men Type: BLOOD SPECIMEN Ordering Facility: [employer] Address: [address] [place] [address] Performed By: #### 5 7021-8 #### [facility] CLIA [id number] [address] [place] [address] [place] Lymphocytes/100 WBC (Bld) 27.3 % Normal [facility] Comment on above: Order Comment: Speci men Type: BLOOD SPECIMEN Ordering Facility: [employer] Address: [address] [place] [address] Performed By: #### 5 7021-8 #### [facility] CLIA [id number] [address] [place] [address] [place] MCH (RBC) [Entitic mass] 29.6 pg Normal 26.0-34.0 [facility] Comment on above: Order Comment: Speci men Type: BLOOD SPECIMEN Ordering Facility: [facility] Address: [address] [place] [address] Performed By: #### 5 7021-8 #### [facility] CLIA [id number] [address] [place] [address] [place] MCHC (RBC) [Mass/Vol] 33.0 g/dL Normal 30.5-36.0 [facility] [place] Comment on above: Order Comment: Speci men Type: BLOOD SPECIMEN Ordering Facility: [facility] Address: [address] [place] [address] Performed By: #### 5 7021-8 #### [facility] CLIA [id number] [address] [place] [address] [place] MCV (RBC) [Entitic vol] 89.9 fL Normal 80.0-100.0 [facility] Comment on above: Order Comment: Speci men Type: BLOOD SPECIMEN Ordering Facility: [employer]. Address: [address] [place] [address] Performed By: #### 5 7021-8 #### [facility] CLIA [id number] [address] [place] [address] [place] Monocytes (Bld) [#/Vol] 0.42 10*3/uL Normal <0.87 [facility] Comment on above: Order Comment: Speci men Type: BLOOD SPECIMEN Ordering Facility: [employer]. Address: [address] [place] [address] Performed By: #### 5 7021-8 #### [facility] CLIA [id number] [address] [place] [address] [place] Monocytes/100 WBC (Bld) 8.0 % Normal [facility] Comment on above: Order Comment: Speci men Type: BLOOD SPECIMEN Ordering Facility: [employer]. Address: [address] [place] [address] Performed By: #### 5 7021-8 #### [facility] CLIA [id number] [address] [place] [address] [place] Neutrophils (Bld) [#/Vol] 3.01 10*3/uL Normal 1.45-7.50 [facility] Comment on above: Order Comment: Speci men Type: BLOOD SPECIMEN Ordering Facility: [employer]. Address: [address] [place] [address] Performed By: #### 5 7021-8 #### [facility] CLIA [id number] [address] [place] [address] [place] Neutrophils/100 WBC (Bld) 57.1 % Normal [facility] Comment on above: Order Comment: Speci men Type: BLOOD SPECIMEN Ordering Facility: [employer]. Address: [address] [place] [address] Performed By: #### 5 7021-8 #### [facility] CLIA [id number] [address] [place] [address] [place] Nucleated RBC (Bld) [#/Vol] 10*3/uL Normal <0.01 [facility] Comment on above: Order Comment: Speci men Type: BLOOD SPECIMEN Ordering Facility: [employer]. Address: [address] [place] [address] Performed By: #### 5 7021-8 #### [facility] [place] [id number] [address] [place] [address] [place] Nucleated RBC/100 WBC (Bld) [Ratio] 0.0 /100 WBC Normal [facility] Comment on above: Order Comment: Speci men Type: BLOOD SPECIMEN Ordering Facility: [employer]. Address: [address] [place] [address] Performed By: #### 5 7021-8 #### [facility] IA [id number] [address] [place] [address] [place] Platelet mean volume (Bld) [Entitic vol] 10.3 fL Normal 9.0-12.7 [facility] Comment on above: Order Comment: Speci men Type: BLOOD SPECIMEN Ordering Facility: [employer]. Address: [address] [place] [address] Performed By: #### 5 7021-8 #### [facility] IA [id number] [address] [place] [address] [place] Platelets (Bld) [#/Vol] 231 10*3/uL Normal 150-400 [facility] Comment on above: Order Comment: Speci men Type: BLOOD SPECIMEN Ordering Facility: [employer]. Address: [address] [place] [address] Performed By: #### 5 7021-8 #### [facility] IA [id number] [address] [place] [address] [place] RBC (Bld) [#/Vol] 4.05 10*6/uL Normal 3.90-5.20 [facility] Comment on above: Order Comment: Speci men Type: BLOOD SPECIMEN Ordering Facility: [employer] Address: [address] [place] [address] Performed By: #### 5 7021-8 #### [facility] CLIA [id number] [address] [place] [address] [place] WBC (Bld) [#/Vol] 5.27 10*3/uL Normal 3.70-11.00 [facility] Comment on above: Order Comment: Speci men Type: BLOOD SPECIMEN Ordering Facility: [employer] Address: [address] [place] [address] Performed By: #### 5 7021-8 #### [facility] CLIA [id number] [address] [place] [address] [place] CRP SerPl-mCncon 12-14-2021 CRP [Mass/Vol] mg/L Normal <0.9 [facility] Comment on above: Order Comment: Speci men Type: BLOOD SPECIMEN Ordering Facility: [employer] Address: [address] [place] [address] Performed By: #### 1 988-5 #### [facility] CLIA [id number] [address] [place] [address] [place] ESR Westergren method (Bld) [Velocity]on 12-14-2021 ESR (Bld) [Velocity] 20 mm/h Normal 0-20 [facility] Comment on above: Order Comment: Speci men Type: BLOOD SPECIMEN Ordering Facility: [employer] Address: [address] [place] [address] Performed By: #### 4 537-7 #### [facility] CLIA [id number] [address] [place] [id number] [place] CBCon 10-26-2021 Hematocrit (Bld) [Volume fraction] 39.6 % 34 - 48 % [facility] Hemoglobin (Bld) [Mass/Vol] 13.2 g/dL 11.5 - 15.5 g/dL [facility] MCH (RBC) [Entitic mass] 30.4 pg 26 - 35 pg [facility] MCHC (RBC) [Mass/Vol] 33.3 % 32 - 34.5 % [facility] MCV (RBC) [Entitic vol] 91.2 fL 80 - 99.9 fL [facility] Platelet distribution width (Bld) [Ratio] 12.1 fL 11.5 - 15 fL [facility] Platelet mean volume (Bld) [Entitic vol] 9.9 fL 7 - 12 fL [facility] Platelets (Bld) [#/Vol] 257 10*3/uL [facility] RBC (Bld) [#/Vol] 4.34 10*6/uL [facility] WBC (Bld) [#/Vol] 4.9 10*3/uL [facility] CBC With Platelet No Differe ntialon 10-26-2021 Hematocrit (Bld) [Volume fraction] 39.6 % Normal 34.0-48.0 [facility] Hemoglobin (Bld) [Mass/Vol] 13.2 g/dL Normal 11.5-15.5 [facility] MCH (RBC) [Entitic mass] 30.4 pg Normal 26.0-35.0 [facility] MCHC 33.3 % Normal 32.0-34.5 [facility] MCV (RBC) [Entitic vol] 91.2 fL Normal 80.0-99.9 [facility] Platelet Count 257 E9/L Normal 130-450 [facility] Platelet mean volume (Bld) [Entitic vol] 9.9 fL Normal 7.0-12.0 [facility] RBC 4.34 E12/L Normal 3.50-5.50 [facility] RDW 12.1 fL Normal 11.5-15.0 [facility] WBC 4.9 E9/L Normal 4.5-11.5 [facility] METER GLUCOSEon 10-26-2021 Glucose [Mass/Vol] 113 mg/dL High 74-99 [facility] POCT Glucoseon 10-26-2021 Glucose [Mass/Vol] 113 mg/dL High 74 - 99 mg/dL [facility] Interpretation and review of laboratory results Abnormal [facility] Surgical Specimenon 10-27-19 Surgical Specimen [facility] [address] [facility] [address] [address] FINAL SURGICAL PATHOLOGY REPORT NAME: ROJELIO ARAMBULA Date of 10/26/2021 Collection: Medical Record [id number] Date of 10/26/2021 Number: Receipt: Age: 76 Y Sex: F Date 10/31/2021 10:20 Reported: Date Of : 1945 Financial [id number] Admitting ANG ADAMES Number: Physician: Patient DIS [...] submitted. Block label A1. B. Labeled Rojelio Tyesha, biopsy duodenum consists of two hidalgo soft fragments of tissue, each measuring 0.2 x 0.2 x 0.2 cm. Entirely submitted. Block label B1. C. Labeled Rojelio Arambula, biopsy distal esophagus consists of a white-pink soft fragment of tissue that measures 0.4 x 0.2 x 0.2 cm. Entirely submitted. Block label C1. (ROLA:GARCIA) CODES: 40855d2; Department of Pathology Page 1 of 1 Normal [facility] CNOVon 08-28-2021 CNOV Office Visit (PULMHI ) TYESHAROJELIO ([id number]) 1945 F Date Time Provider Department 08/28/21 1:20 PM JUSTIN CHEATHAM [facility] During your visit today, we recorded the following information about you: Pulse Respiration Blood pressure 77/minute 20/minute 135/66 Liudmila Cheatham MD 08/28/2021 1:46 PM [facility] Respiratory [place] Subjective Rojelio Arambula is a 75 year [...] resction 1971-endometriosis - PAST SURGICAL HISTORY OF 2006 lithotripsy - PAST SURGICAL HISTORY OF partial [...] File Prior to Visit Medication Sig - lisinopril-hydrochloro thiazide (PRINZIDE,ZESTORETIC) 20-12.5 mg per tablet Take 2 [...] Negative for adenopathy. Does not bruise/bleed easily. Psychiatric/Behavioral : Negati (more content not included)... Normal [facility] CT CHEST WO IVCONon 03-30-19 CT CHEST [...] No abnormality in the imaged upper abdomen. Muffler Installer (topogram) images: No additional findings. IMPRESSION: 1. [...] any questions regarding this interpretation, please call [phone]. If you are unable to reach us at the number above, please feel free to contact [facility] eRadiology at [phone]. [id number] Normal [facility] CNOVon 02-27-2021 CNOV Office Visit (PULMHI ) ROJELIO ARAMBULA ([id number]) 1945 F Date Time Provider Department 02/27/21 4:00 PM JUSTIN CHEATHAM [facility] During your visit today, we recorded the following information about you: Temperature Pulse Respiration Blood pressure 97.9 degrees 81/minute 20/minute 121/59 Weight Height 70.3 kg 1.549 m Liudmila Cheatham MD 02/27/2021 4:31 PM Signed Respiratory [place] Subjective Rojelio Arambula is a 75 year [...] File Prior to Visit Medication Sig - lisinopril-hydrochloro thiazide (PRINZIDE,ZESTORETIC) 20-12.5 mg per tablet Take 2 [...] and u (more content not included)... Normal [facility] C-Reactive Proteinon 021 C-Reactive Protein 0.4 mg/dL Normal <0.9 [facility] Comment on above: Performed By: #### C BCDIF, WSR, CRP #### [facility] Routine Lab [address] [place], [place] [address] CBC and Differentialon 11-14 Abs Baso 0.03 k/uL Normal <0.11 [facility] Comment on above: Performed By: #### C BCDIF, WSR, CRP #### [facility] Routine Lab [address] [phone] Abs Cavalier 0.38 k/uL Normal <0.87 [facility] Comment on above: Performed By: #### C BCDIF, WSR, CRP #### [facility] Routine Lab [address] [place] [phone] Abs Neut 3.55 k/uL Normal 1.45-7.50 [facility] Comment on above: Performed By: #### C BCDIF, WSR, CRP #### [facility] Routine Lab [address] [place] [phone] Absolute nRBC <0.01 Normal <0.01 [facility] Comment on above: Performed By: #### C BCDIF, WSR, CRP #### [facility] Routine Lab [address] [place] [phone] Basophils/100 WBC (Bld) 0.6 % Normal C [facility] Comment on above: Performed By: #### C BCDIF, WSR, CRP #### [facility] Routine Lab [address] [place] [phone] DTYPE ADIFF Normal [facility] Comment on above: Performed By: #### C BCDIF, WSR, CRP #### [facility]ine Lab [address] [place] [phone] Eosinophils (Bld) [#/Vol] 0.10 10*3/uL Normal <0.46 [facility] Comment on above: Performed By: #### C BCDIF, WSR, CRP #### [facility]ine Lab [address] [place] [phone] Eosinophils/100 WBC (Bld) 2.1 % Normal [facility] Comment on above: Performed By: #### C BCDIF WSR, CRP #### [facility] Routine Lab [address] [address] Erythrocyte distribution width (RBC) [Ratio] 11.9 % Normal 11.5-15.0 [facility] Comment on above: Performed By: #### C BCDIF, WSR, CRP #### [facility] Routine Lab [address] [phone] Hematocrit (Bld) [Volume fraction] 36.8 % Normal 36.0-46.0 [facility] Comment on above: Performed By: #### C BCDIF, WSR, CRP #### [facility] Routine Lab [address] [place] [phone] Hemoglobin (Bld) [Mass/Vol] 12.0 g/dL Normal 11.5-15.5 [facility] Comment on above: Performed By: #### C BCDIF, WSR, CRP #### [facility] Routine Lab [address] [address] Lymphocytes (Bld) [#/Vol] 0.59 10*3/uL Low 1.00-4.00 [facility] Comment on above: Performed By: #### C BCDIF, WSR, CRP #### [facility] Routine Lab [address] [address] Lymphocytes/100 WBC (Bld) 12.7 % Normal [facility] Comment on above: Performed By: #### C BCDIF, WSR, CRP #### [facility] Routine Lab [address] [address] MCH 30.1 pG Normal 26.0-34.0 [facility] Comment on above: Performed By: #### C BCDIF, WSR, CRP #### [facility] Routine Lab [address] [place], [place] [address] MCHC (RBC) [Mass/Vol] 32.6 g/dL Normal 30.5-36.0 [facility] Comment on above: Performed By: #### C BCDIF, WSR, CRP #### [facility] Routine Lab [address] [phone] MCV (RBC) [Entitic vol] 92.2 fL Normal 80.0-100.0 [facility] Comment on above: Performed By: #### C BCDIF, WSR, CRP #### [facility] Routine Lab [address] [address] Monocytes/100 WBC (Bld) 8.2 % Normal [facility] Comment on above: Performed By: #### C BCDIF, WSR, CRP #### [facility] Routine Lab [address] [address] Neutrophils/100 WBC (Bld) 76.4 % Normal [facility] Comment on above: Performed By: #### C BCDIF, WSR, CRP #### [facility] Routine Lab [address] [address] NRBCs 0.0 /100 WBC Normal 0 [facility] Comment on above: Performed By: #### C BCDIF, WSR, CRP #### [facility] Routine Lab [address] [place], [place] [address] Platelet mean volume (Bld) [Entitic vol] 10.9 fL Normal 9.0-12.7 [facility] Comment on above: Performed By: #### C BCDIF, WSR, CRP #### [facility] Routine Lab [address] [place] [phone] Platelets (Bld) [#/Vol] 207 10*3/uL Normal 150-400 [facility] Comment on above: Performed By: #### C BCDIF, WSR, CRP #### [facility] Routine Lab [address] [place], [place] [phone] RBC (Bld) [#/Vol] 3.99 10*6/uL Normal 3.90-5.20 [facility] Comment on above: Performed By: #### C BCDIF, WSR, CRP #### [facility] Routine Lab [address] [place], [place] [phone] WBC (Bld) [#/Vol] 4.66 10*3/uL Normal 3.70-11.00 [facility] Comment on above: Performed By: #### C BCDIF, WSR, CRP #### [facility] Routine Lab [address] [place], [place] [phone] Sed Rate Westergrenon 2020 Sed Rate Westergren 24 mm/hr High 0-20 [facility] Comment on above: Performed By: #### C BCDIF, WSR, CRP #### [facility] Routine Lab [address] [place], [place] [address] ANES POSTPROC EVALon 020 ANES POSTPROC EVAL HNO ID: [id number] Author: Scotty Batres Service: ? Author Type: Anesthesiologist Type: Anesthesia Postprocedure Evaluation Filed: 02/09/2020 1:52 PM Note Text: POST ANESTHESIA EVALUATION NOTE : 1945 Procedure Summary Date: 02/09/20 Room / Location: OR06A / OR Anesthesia Start: 1121 Anesthesia Stop: 1341 Procedures: OPEN REPAIR SHOULDER ROTATOR CUFF OPEN; [...] February 09, 2020 TIME: 1:51 PM CSN: [id number] [facility] ANES PRE-OPon 02-09-2020 ANES PRE-OP HNO ID: [id number] Author: Scotty Batres Service: ? Author Type: [...] D5W 200 mL (VANCOCIN) 1 g INTRAVENOUS Barrel Cleaner to OR - [COMPLETED] ciprofloxacin iv piggyback 400 mg in D5W 200 mL (CIPRO) 400 mg INTRAVENOUS Barrel Cleaner to OR - [COMPLETED] midazolam (PF) 2 [...] every 6 hours for 5 days. - oxyCODONE-acetaminophe n (PERCOCET) 5-325 mg tablet Take 1 tablet [...] February 09, 2020 TIME: 10:50 AM CSN: [id number] [facility] NURSING PROGon 02-09-2020 NURSING PROG HNO ID: [id number] Author: Ashley Altamirano RN Service: ? Author Type: Registered Nurse Type: Nursing Progress Note Filed: 02/09/2020 4:10 PM Note Text: Nursing Progress Note Patient Name: Rojelio Arambula Patient Location: [facility] OR POOL/[facility] OR POOL __ Daily Note: 1550 Pt arrived to phase II, denies any pain at this time. Drsg to right shoulder CDI. Pt with positive movement and sensation noted. Arm to sling. Peripheral nerve catheter infusing per orders. Positive radial pulse. Pt ambulated to restroom with steady gait. 1605 Pt tolerating crackers and sparkle marlin well. This note was completed by: Ashley Altamirano RN [facility] NURSING PROG HNO ID: [id number] Author: Chris Arevalo RN Service: Nursing Author Type: Registered Nurse Type: Nursing Progress Note Filed: 02/09/2020 10:36 AM Note Text: Tolerated procedure very well Normal [facility] NURSING PROG HNO ID: [id number] Author: Chris (Rn) FADUMO Arevalo Service: Nursing Author Type: Registered Nurse Type: Nursing Progress Note Filed: 02/09/2020 9:28 AM Note Text: Right ISB with Exparel Dr. Hasmukh WHITTAKER Patient verbalized her understanding of the nerve block procedure Normal [facility] OPERATIVE NOon 02-09-2020 OPERATIVE NO HNO ID: [id number] Author: Faizan Parrish Service: Orthopaedic Surgery Author Type: Physician Type: Operative Report Filed: 03/06/2020 9:04 AM Note Text: [facility] - Operative Report ROJELIO ARAMBULA : 1945 AGE: 74. SEX: F PATIENT TYPE: A HOSP SVC: OROR LOCATION: [facility] ATTENDING PHYSICIAN: Faizan Parrish MD CSN NUMBER: [id number] DATE OF SURGERY/PROCEDURE: 02/09/2020 INCISION/PROCEDURE START TIME: 12:13 PM INCISION CLOSE/PROCEDURE END TIME: 1:05 PM PREOPERATIVE DIAGNOSIS: 1. Right shoulder rotator cuff tear. 2. Acromioclavicular joint arthritis. POSTOPERATIVE DIAGNOSIS: 1. Right shoulder rotator cuff tear. 2. Acromioclavicular joint arthritis. 3. Impingement. SURGEON: Faizan Parrish MD WAREHOUSE OPERATIONS MANAGER: Jaren Burns PA and Janis. SURGERY/PROCEDURE: 1. [...] vancomycin powder during closure. Faizan Parrish MD [facility]:[id number] /[id number] cc: Normal [facility] SURGICAL PATHOLOGYon 020 SURGICAL PATHOLOGY Specimen originated from [facility] Specimen #: [id number] Submitting Physician: FAIZAN PARRISH FINAL DIAGNOSIS Bone, distal clavicle, excision - Osteocartilaginous tissue with degenerative changes. RONI/sed 02/12/2020 Nessa CordovaS., Ph.D. (Electronic Signature) _ SPECIMEN SUBMITTED A: DISTAL CLAVICLE CLINICAL DATA RIGHT OPEN SHOULDER ACROMINOPLASTY/ROTATOR CUFF REPAIR IMPINGEMENT GROSS DESCRIPTION A. Received in formalin labeled distal clavicle is a portion of bone with minimal amounts of soft tissue, measuring 1.9 x 1.3 x 0.5 cm. The entire specimen is submitted in one cassette following decalcification. GLENNA/hannah 02/10/2020 Gross examination performed at [facility], [address] [place] [address]. Date of Report: 02/15/2020 Date of Procedure: 02/09/2020 Date of Receipt: 02/09/2020 Submitted by: FAIZAN PARRISH Location: [facility] Diagnostic interpretation performed at [facility], [address] [place] [address]. [place] Number: [id number] [facility] HOSPon 01-12-2020 HOSP Patient:Kristie Arambula MRN: Height:5' 0(1.524 m) Weight:155 lb 14.4 oz (70.716 kg) Outpatient Medications as of 02/09/20: lisinopril-hydrochloro thiazide (PRINZIDE,ZESTORETIC) 20-12.5 mg per tablet cholecalciferol, vitamin [...] notes entered within the past 30 days [facility] ANES Bernie 10-06-2019 ANES POST HNO ID: [id number] Author: Amadeo Noe Service: Anesthesiology Author Type: [...] 06, 2019 TIME: 1:15 PM PAGER/CONTACT #: [facility] ANES PREOPon 10-06-2019 ANES PREOP HNO ID: [id number] Author: Amadeo Noe Service: Anesthesiology Author Type: [...] D5W 50 mL (CLEOCIN) 600 mg INTRAVENOUS Barrel Cleaner to OR Faizan Parrish Allergies: ALLERGIES Allergen [...] October 06, 2019 TIME: 9:03 AM CSN: [id number] Staff Note I have seen this patient and reviewed pertinent medical records. I agree with the ceo and president's assessment and plan. Will proceed with anesthetic technique stated. Amadeo Noe MD October 06, 2019 9:58 AM Normal [facility] HISTORY PHYSICALon 0 HISTORY PHYSICAL HNO ID: [id number] Author: Faizan Parrish Service: Orthopaedic Surgery Author [...] patient was offered a surgery/procedure at a [facility]. The surgeon/proceduralist and patient have discussed in [...] We are operating on the right shoulder [facility] NURSING PROGon 10-06-2019 NURSING PROG HNO ID: [id number] Author: Erickson (Rn) FADUMO Woodward Service: ? Author Type: Registered Nurse Type: Nursing Progress Note Filed: 10/06/2019 3:13 PM Note Text: Nursing Progress Note Patient Name: Rojelio Arambula Patient Location: [facility] OR POOL/[facility] OR POOL __ Daily Note: 1429 Pt in Ph 2. [...] note was completed by: Erickson Woodward RN [facility] NURSING PROG HNO ID: [id number] Author: Donna WillisRn) FADUMO Beltran Service: ? Author Type: Registered Nurse Type: Nursing Progress Note Filed: 10/06/2019 2:13 PM Note Text: Nursing Progress Note Patient Name: Rojelio Arambula Patient Location: [facility] OR POOL/[facility] OR POOL __ 1300 Assumed care of patient from Marcie [...] note was completed by: Donna Beltran RN [facility] NURSING [facility] ID: [id number] Author: Rojelio WillisRn) FADUMO Lima Service: ? Author Type: Registered Nurse Type: Nursing Progress Note Filed: 10/06/2019 12:55 PM Note Text: Nursing Progress Note Patient Name: Rojelio Arambula Patient Location: [facility] OR POOL/[facility] OR POOL __ Daily Note: patient arrived to pacu, vss, [...] note was completed by: Rojelio Lima RN [facility] NURSING PROG HNO ID: [id number] Author: Chris WillisRn) FADUMO Arevalo Service: Nursing Author Type: Registered Nurse Type: Nursing Progress Note Filed: 10/06/2019 10:39 AM Note Text: 1040 Patient report given to Geneva Lopez RN [facility] NURSING PROG HNO ID: [id number] Author: Chris WillisRn) FADUMO Arevalo Service: Nursing Author Type: Registered Nurse Type: Nursing Progress Note Filed: 10/06/2019 10:21 AM Note Text: Right ISB SS Dr. Noe Patient verbalized her understanding of the nerve block procedure [facility] OPERATIVE NOon 10-06-2019 OPERATIVE NO HNO ID: [id number] Author: Faizan Parrish Service: Orthopaedic Surgery Author Type: Physician Type: Operative Report Filed: 10/17/2019 6:58 AM Note Text: [facility] - Operative Report ROJELIO ARAMBULA : 1945 AGE: 74. SEX: F PATIENT TYPE: A HOSP SVC: OROR LOCATION: [facility] [place][NOTE 3] ATTENDING PHYSICIAN: Faizan Parrish MD CSN NUMBER: [id number] DATE OF SURGERY/PROCEDURE: 10/06/2019 INCISION/PROCEDURE START TIME: 11:47 AM INCISION CLOSE/PROCEDURE END TIME: 12:09 PM PREOPERATIVE DIAGNOSIS: Right shoulder impingement with rotator cuff tendinitis. POSTOPERATIVE DIAGNOSIS: Right shoulder impingement with rotator cuff tendinitis. SURGEON: Faizan Parrish MD WAREHOUSE OPERATIONS MANAGER: RADHA Steen. SURGERY/PROCEDURE: Right shoulder arthroscopy with [...] tearing of the rotator cuff, but no mqmwtbz-[id number]-iiolxpt tears. We checked both with the lateral [...] after immobilizer was applied. Faizan Parrish MD [facility]:[id number] /[id number] cc: [facility] PT EDon 10-06-2019 PT ED HNO ID: [id number] Author: Erickson (Rn) FADUMO Woodward Service: ? Author Type: Registered Nurse [...] None Electronically Signed By: Erickson [facility]ward [facility] Telephone (PREANME) ROJELIO ARAMBULA ([id number]) 1945 F Date Time Provider Department 09/18/19 JOYCE PETIT) PREANME During your visit today, we recorded the [...] for your procedure at this surgery center: [facility]: [phone] -- [address] [place], [place] [address]. Please read below carefully for your personalized instructions. Arrival Time for Surgery: -You will receive a call from [facility] the afternoon before surgery after 2:30 pm (or Saturday for Saturday surgery) for a scheduled arrival time. - If you have not heard by 4 pm, please contact [facility] at [phone]. Dietary Restrictions: - No solid food after [...] Procedures: - YOU MUST HAVE A RESPONSIBLE POLICY CHANGE CLERKS SUPERVISOR TAKE YOU HOME. A DESIGN PROJECT MANAGER OR MATERIAL HANDLER 1ST SHIFT CANNOT BE MADE A RESPONSIBLE POLICY CHANGE CLERKS SUPERVISOR. - We recommend that a responsible person stays with you overnight to take care of you. - You cannot stay in a hotel alone after outpatient surgery. You will not be permitted to have your surgery, if you do not have someone to take care of you. Arrival Time for Surgery: -You will receive a call from [facility] the afternoon before surgery after 2:30 pm (or Saturday for Saturday surgery) for a scheduled arrival time. - If you have not heard by 4 pm, please contact [facility] at [phone]. Please be aware that emergency situations arise, which may delay or change your surgical time. If this happens, we will notify you as soon as possible and regret any inconvenience. If you already have an Advance Directive, please fax a copy to [phone] or email to [email or web address] for it to be added to your chart. If you do not have an Advance Directive, you can find the appropriate form and more information at [email or web address]. We recommend that you complete the Advance Directive form found on the website and bring it with you the day of your surgery. It can be witnessed and scanned into your chart that day. RADHA Alan-C Allergies As of Date: 09/18/2019 Noted Allergy Reaction MORPHINE 12/06/2008 7 - Swelling Comments: Rash, edema PENICILLINS 12/06/2008 2 - Rash PROPOXYPHENE 12/06/2008 Comments: nausea Date Reviewed: 12/17/2018 Reviewed by: Nasrin (Fadumo) FADUMO Catherine - Fully Assessed Reason for Visit: [...] for your procedure at this surgery center: [facility]: [phone] -- [address] [address]. Please read below carefully for your personalized instructions. Arrival Time for Surgery: -You will receive a call from [facility] the afternoon before surgery after 2:30 pm (or Saturday for Saturday surgery) for a scheduled arrival time. - If you have not heard by 4 pm, please contact [facility] at [phone]. Dietary Restrictions: - No solid food after [...] Procedures: - YOU MUST HAVE A RESPONSIBLE POLICY CHANGE CLERKS SUPERVISOR TAKE YOU HOME. A DESIGN PROJECT MANAGER OR MATERIAL HANDLER 1ST SHIFT CANNOT BE MADE A RESPONSIBLE POLICY CHANGE CLERKS SUPERVISOR. - We recommend that a responsible person stays with you overnight to take care of you. - You cannot stay in a hotel alone after outpatient surgery. You will not be permitted to have your surgery, if you do not have someone to take care of you. Arrival Time for Surgery: -You will receive a call from [facility] the afternoon before surgery after 2:30 pm (or Saturday for Saturday surgery) for a scheduled arrival time. - If you have not heard by 4 pm, please contact [facility] at [phone]. Please be aware that emergency situations arise, which may delay or change your surgical time. If this happens, we will notify you as soon as possible and regret any inconvenience. If you already have an Advance Directive, please fax a copy to [phone] or email to [email or web address] for it to be added to your chart. If you do not have an Advance Directive, you can find the appropriate form and more information at [email or web address]. We recommend that you complete the Advance Directive form found on the website and bring it with you the day of your surgery. It can be witnessed and scanned into your chart that day. Joyce Petit PA-C Encounter Status:Closed by JOYCE PETIT PA-C [facility]/19 [facility] Patient:Kristie Arambula MRN: Height:5' 0(1.524 m) Weight:No [...] the following basenames: K,HCT Progress Notes (PRE ANES THOMPSON): Joyce Petit PA-C 09/18/2019 5:04 PM Signed Patient with recent HANDP week of 09/07/2019 with PCP. HANDP scanned in Epic from 07/2019 and PACC 01/2019. NO PACC needed. Instructions given with phone number for any questions. Joyce Petit PA-C 09/18/2019 5:03 PM Signed PATIENT PREOPERATIVE INSTRUCTIONS Dr. Parrish has scheduled you for your procedure at this surgery center: [facility]: [phone] -- [address] [address]. Please read below carefully for your personalized instructions. Arrival Time for Surgery: -You will receive a call from [facility] the afternoon before surgery after 2:30 pm (or Saturday for Saturday surgery) for a scheduled arrival time. - If you have not heard by 4 pm, please contact [facility] at [phone]. Dietary Restrictions: - No solid food after [...] Procedures: - YOU MUST HAVE A RESPONSIBLE POLICY CHANGE CLERKS SUPERVISOR TAKE YOU HOME. A DESIGN PROJECT MANAGER OR MATERIAL HANDLER 1ST SHIFT CANNOT BE MADE A RESPONSIBLE POLICY CHANGE CLERKS SUPERVISOR. - We recommend that a responsible person stays with you overnight to take care of you. - You cannot stay in a hotel alone after outpatient surgery. You will not be permitted to have your surgery, if you do not have someone to take care of you. Arrival Time for Surgery: -You will receive a call from [facility] the afternoon before surgery after 2:30 pm (or Saturday for Saturday surgery) for a scheduled arrival time. - If you have not heard by 4 pm, please contact [facility] at [phone]. Please be aware that emergency situations arise, which may delay or change your surgical time. If this happens, we will notify you as soon as possible and regret any inconvenience. If you already have an Advance Directive, please fax a copy to [phone] or email to [email or web address] for it to be added to your chart. If you do not have an Advance Directive, you can find the appropriate form and more information at [email or web address]. We recommend that you complete the Advance Directive form found on the website and bring it with you the day of your surgery. It can be witnessed and scanned into your chart that day. Joyce Petit PA-C Normal [facility] Vital Signs Date Time Vital Sign Value Performing Clinician Joelle valentine 12-03-2024 15:19-0400 Body height 152 cm Dung Durand MD Work Phone: [facility] 12-03-2024 15:19-0400 Body height 152.4 cm Dung Durand MD Work Phone: [facility] 12-03-2024 15:19-0400 Body mass index (BMI) [Ratio] 26.85 kg/m2 Dung Durand MD Work Phone: [facility] 12-03-2024 15:19-0400 Body weight 62 kg Dung Durand MD Work Phone: [facility] 12-03-2024 15:19-0400 Body weight 62.14 kg Dung Durand MD Work Phone: [facility] 12-03-2024 15:19-0400 BP SITE #1 Dung Durand MD Work Phone: [facility] 12-03-2024 15:19-0400 Diastolic blood pressure 83 mm[Hg] Dung Durand MD Work Phone: [facility] 12-03-2024 15:19-0400 Heart rate 72 /min Dung Durand MD Work Phone: [facility] 12-03-2024 15:19-0400 HGHTCHNVIS Dung Durand MD Work Phone: [facility] 12-03-2024 15:19-0400 Systolic blood pressure 138 mm[Hg] Dung Durand MD Work Phone: [facility] 12-03-2024 15:19-0400 VITALSDONE Dung Durand MD Work Phone: [facility] 11-19-2024 11:58-0400 Body height 152 cm Holly Card APRN-ELEMENTARY [employer] TE[employer] Work Phone: [facility] 11-19-2024 11:58-0400 Body height 152.4 cm Holly Card APRN-ELEMENTARY [employer] TE[employer]ER Work Phone: [facility] 11-19-2024 11:58-0400 Body mass index (BMI) [Ratio] 26.85 kg/m2 Holly Card BILLET HEATER OPERATOR-ELEMENTARY [employer] TE[employer]ER Work Phone: [facility] 11-19-2024 11:58-0400 Body weight 62 kg Holly Card BILLET HEATER OPERATOR-ELEMENTARY [employer] TE[employer]ER Work Phone: [facility] 11-19-2024 11:58-0400 Body weight 62.14 kg Holly Card BILLET HEATER OPERATOR-ELEMENTARY [employer] TE[employer]ER Work Phone: [facility] 11-19-2024 11:58-0400 BP SITE #1 Holly Card BILLET HEATER OPERATOR-ELEMENTARY [employer] TE[employer]ER Work Phone: [facility] 11-19-2024 11:58-0400 Diastolic blood pressure 84 mm[Hg] Holly Card BILLET HEATER OPERATOR-ELEMENTARY [employer] TE[employer]ER Work Phone: [facility] 11-19-2024 11:58-0400 Heart rate 65 /min Holly Card BILLET HEATER OPERATOR-ELEMENTARY [employer] TE[employer]ER Work Phone: [facility] 11-19-2024 11:58-0400 HGHTCHNVIS Holly Card BILLET HEATER OPERATOR-ELEMENTARY [employer] TE[employer]ER Work Phone: [facility] 11-19-2024 11:58-0400 Systolic blood pressure 139 mm[Hg] Holly Card BILLET HEATER OPERATOR-ELEMENTARY [employer] TE[employer]ER Work Phone: [facility] 11-19-2024 11:58-0400 VITALSDONE Holly Card BILLET HEATER OPERATOR-ELEMENTARY [employer] TEACHER Work Phone: [facility] 10-13-2024 11:26-0400 Body height 152 cm Telly Bryan MD Work Phone: [facility] 10-13-2024 11:26-0400 Body height 152.4 cm Telly Bryan MD Work Phone: [facility] 10-13-2024 11:26-0400 Body mass index (BMI) [Ratio] 27.44 kg/m2 Telly Bryan MD Work Phone: [facility] 10-13-2024 11:26-0400 Body weight 64 kg Telly Bryan MD Work Phone: [facility] 10-13-2024 11:26-0400 Body weight 63.5 kg Telly Bryan MD Work Phone: [facility] 10-13-2024 11:26-0400 BP SITE #1 Telly Bryan MD Work Phone: [facility] 10-13-2024 11:26-0400 BP SITE #2 Telly Bryan MD Work Phone: [facility] 10-13-2024 11:26-0400 Diastolic blood pressure 86 mm[Hg] Telly Bryan MD Work Phone: [facility] 10-13-2024 11:26-0400 Diastolic blood pressure 81 mm[Hg] Telly Bryan MD Work Phone: [facility] 10-13-2024 11:26-0400 Heart rate 69 /min Telly Bryan MD Work Phone: [facility] 10-13-2024 11:26-0400 HGHTCHNVIS Telly Bryan MD Work Phone: [facility] 10-13-2024 11:26-0400 Systolic blood pressure 150 mm[Hg] Telly Bryan MD Work Phone: [facility] 10-13-2024 11:26-0400 Systolic blood pressure 157 mm[Hg] Telly Bryan MD Work Phone: [facility] 10-13-2024 11:26-0400 CORA Telly Bryan MD Work Phone: [facility] 09-10-2024 10:23-0400 Body height 154.94 cm Marcos Garcia MD Work Phone: [facility] 09-10-2024 10:23-0400 Body mass index (BMI) [Ratio] 25.9 kg/m2 Marcos Garcia MD Work Phone: [facility] 09-10-2024 10:23-0400 Body weight 62.14 kg Marcos Garcia MD Work Phone: [facility] 09-03-2024 09:32-0400 Body height 154.94 cm Marcos Garcia MD Work Phone: [facility] 09-03-2024 09:32-0400 Body mass index (BMI) [Ratio] 26.4 kg/m2 Marcos Garcia MD Work Phone: [facility] 09-03-2024 09:32-0400 Body weight 63.5 kg Marcos Garcia MD Work Phone: [facility] 09-02-2024 13:34-0400 Body height 154.94 cm Marcos Garcia MD Work Phone: [facility] 09-02-2024 13:34-0400 Body mass index (BMI) [Ratio] 25.7 kg/m2 Marcos Garcia MD Work Phone: [facility] 09-02-2024 13:34-0400 Body temperature 98.2 [degF] Marcos Garcia MD Work Phone: [facility] 09-02-2024 13:34-0400 Body weight 61.68 kg Marcos Garcia MD Work Phone: [facility] 09-02-2024 13:34-0400 Diastolic blood pressure 66 mm[Hg] Marcos Garcia MD Work Phone: [facility] 09-02-2024 13:34-0400 Heart rate 84 /min Marcos Garcia MD Work Phone: [facility] 09-02-2024 13:34-0400 Respiratory rate 15 /min Marcos Garcia MD Work Phone: [facility] 09-02-2024 13:34-0400 SaO2% (BldA) [Mass fraction] 96 % Marcos Garcia MD Work Phone: [facility] 09-02-2024 13:34-0400 Systolic blood pressure 120 mm[Hg] Marcos Garcia MD Work Phone: [facility] 10-26-2021 10:33-0400 Diastolic blood pressure 65 mm[Hg] Ang Adames MD Work Phone: [facility] 10-26-2021 10:33-0400 Heart rate 70 /min Ang Adames MD Work Phone: [facility] 10-26-2021 10:33-0400 Respiratory rate 18 /min Ang Adames MD Work Phone: [facility] 10-26-2021 10:33-0400 SaO2% (BldA) [Mass fraction] 100 % Ang Adames MD Work Phone: [facility] 10-26-2021 10:33-0400 Systolic blood pressure 139 mm[Hg] Ang Adames MD Work Phone: [facility] 10-26-2021 09:52-0400 Body temperature 97.2 [degF] Ang Adames MD Work Phone: [facility] 10-26-2021 07:06-0400 Body height 154.9 cm Ang Adames MD Work Phone: [facility] 10-26-2021 07:06-0400 Body mass index (BMI) [Ratio] 28.53 kg/m2 Ang Adames MD Work Phone: [facility] 10-26-2021 07:06-0400 Body weight 68.49 kg Ang Adames MD Work Phone: [facility] 08-28-2021 13:17-0400 Diastolic blood pressure 66 mm[Hg] Justin Cheatham MD Work Phone: [facility] 08-28-2021 13:17-0400 Heart rate 77 /min Justin Cheatham MD Work Phone: [facility] 08-28-2021 13:17-0400 Respiratory rate 20 /min Justin Cheatham MD Work Phone: [facility] 08-28-2021 13:17-0400 SaO2% (BldA) [Mass fraction] 98 % Justin Cheatham MD Work Phone: [facility] 08-28-2021 13:17-0400 Systolic blood pressure 135 mm[Hg] Justin Cheatham MD Work Phone: [facility] Encounters Encounter Date Encounter Type Care Provider Facility Start: 12-24-2024 End: 12-24-2024 ambulatory Marcos Garcia MD Work Phone: -[facility] Start: 12-24-2024 End: 12-24-[address] Marcos Garcia MD -[facility] Work Phone: Start: 12-24-2024 End: 12-24-2024 ambulatory Marcos Garcia Facility:[facility] Start: 12-06-2024 Visit out of hours Dung hartman MD Work Phone: [facility] Work Phone: Start: 12-03-2024 In-person encounter Dung Durand MD Work Phone: [facility] Work Phone: Start: 11-22-2024 Visit out of hours Holly mccall APRN-ELEMENTARY [employer] Work Phone: [employer] Work Phone: Start: 11-20-2024 End: 11-20-2024 ambulatory Marcos Garcia MD Work Phone: -[facility] Start: 11-20-2024 End: 11-20-2024 Patient encounter procedure Holly Card NP-C -[facility] Work Phone: Start: 11-20-2024 End: 11-20-2024 ambulatory Marcos Garcia Facility:[facility] Start: 11-19-2024 In-person encounter Holly Canas BILLET HEATER OPERATOR-ELEMENTARY [employer] TE[employer]ER Work Phone: [facility] Work Phone: Start: 10-29-2024 End: 10-29-[address] Justin Romero MD -[facility] Start: 10-29-2024 End: 10-29-2024 ambulatory Marcos Garcia MD Work Phone: -[facility] Start: 10-19-2024 Visit out of hours Telly Bryan MD Work Phone: [employer] Work Phone: Start: 10-13-2024 In-person encounter Telly Bryan MD Work Phone: [facility] Work Phone: Start: 09-29-2024 End: 09-29-[address] Justin Romero MD -[facility] Start: 09-29-2024 End: 09-29-2024 ambulatory Marcos Garcia MD Work Phone: -[facility] Start: 09-17-2024 End: 09-17-2024 ambulatory Marcos Garcia MD Work Phone: -[facility] Start: 09-17-2024 End: 09-17-[address] Marcos Garcia MD -[facility] Start: 09-17-2024 End: 09-17-2024 ambulatory Chalon Jose Facility:[facility] Start: 09-10-2024 End: 09-10-[address] Justin Romero MD -[facility] Start: 09-10-2024 End: 09-10-2024 ambulatory Marcos Garcia MD Work Phone: [facility] Work Phone: Start: 09-03-2024 End: 09-03-2024 Patient encounter procedure Melody Loya FELT CUTTING MACHINE OPERATOR-C -[facility] Work Phone: Start: 09-03-2024 End: 09-03-2024 ambulatory Marcos Garcia MD Work Phone: [facility] Work Phone: Start: 09-02-2024 End: 09-02-2024 Patient encounter procedure Rosas Pool MA -[facility] Work Phone: Start: 09-02-2024 End: 09-02-2024 ambulatory Marcos Garcia MD Work Phone: [facility] Work Phone: Start: 09-02-2024 End: 09-02-2024 ambulatory Chalon Jose Facility:[facility] Start: 04-13-2024 End: 04-13-2024 ambulatory Chalon Jose Facility:[facility] Start: 03-30-2024 End: 03-30-2024 ambulatory Chalon Jose Facility:[facility] Start: 01-08-2022 End: 01-08-2022 Subsequent hospital visit by physician Rey Loya Work Phone: Radiology Start: 12-14-2021 End: 12-15-2021 ambulatory TIO PEREZ Facility:[facility] Start: 10-26-2021 End: 10-26-2021 ambulatory TIO PEREZ [facility] Start: 10-26-2021 End: 10-26-2021 Subsequent hospital visit by physician Ang Adames MD Work Phone: [facility] Comment on above: Diverticulitis; Anemia, blood loss Start: 08-28-2021 End: 08-28-2021 ambulatory JUSTIN CHEATHAM Facility:[facility] Start: 08-28-2021 End: 08-28-2021 Patient encounter procedure Justin Cheatham MD Work Phone: Pulmonary Medicine Comment on above: Lung nodules (Primar y Dx); COVID-19; Nonsmoker Start: 04-03-2021 End: 04-03-2021 ambulatory TIO P MIKULA [facility] Start: 03-30-2021 End: 03-30-2021 ambulatory TIO P MIKULA Facility:[facility] Start: 03-30-2021 End: 03-30-2021 ambulatory JUSTIN CHEATHAM [facility] Start: 02-27-2021 End: 02-27-2021 ambulatory TIO P MIKULA [facility] Procedures Date Procedure Procedure Detail Performing Clinician Start: 12-24-2024 Dual energy X-ray absorptiometry Marcos Garcia MD Work Phone: Start: 12-06-2024 Blood pressure withi n normal parameters - no follow-up required Dung Durand MD Work Phone: Start: 12-06-2024 BMI documented as ab ove normal parameters - follow-up documented Dung Durand MD Work Phone: Start: 12-06-2024 Current tobacco non- user cad cap copd pv dm Dung Durand MD Work Phone: Start: 12-06-2024 Documentation of cur rent medications Dung Durand MD Work Phone: Start: 12-06-2024 Falls plan of care n ot done for unspecified reasons Dung Durand MD Work Phone: Start: 12-06-2024 Falls risk not docum ented - reason not given Dung Durand MD Work Phone: Start: 12-06-2024 Pt falls assess docd 2/> falls/fall w/injury/yr Dung Durand MD Work Phone: Start: 12-06-2024 Pain assessment docu mented as positive - follow-up documented Dung Durand MD Work Phone: Start: 11-22-2024 Falls plan of care n ot done for unspecified reasons Holly Huerta Kyaw BILLET HEATER OPERATOR-ELE[employer]ARY [employer] Work Phone: Start: 11-22-2024 Falls risk not docum ented - reason not given Holly Card BILLET HEATER OPERATOR-ELE[employer] Work Phone: Start: 11-22-2024 Pt falls assess docd 2/> falls/fall w/injury/yr Holly Card BILLET HEATER OPERATOR-[employer] Work Phone: Start: 11-22-2024 Blood pressure withi n normal parameters - no follow-up required Holly Card BILLET HEATER OPERATOR-[employer] Work Phone: Start: 11-22-2024 BMI documented as ab ove normal parameters - follow-up documented Deanna Kyaw BILLET HEATER OPERATOR-ELE[employer]ARY [employer] TE[employer]ER Work Phone: Start: 11-22-2024 Current tobacco non- user cad cap copd pv dm A Kyaw BILLET HEATER OPERATOR-ELE[employer] TE[employer]ER Work Phone: Start: 11-22-2024 Documentation of cur rent medications Deanna Kyaw BILLET HEATER OPERATOR-ELE[employer]ER Work Phone: Start: 11-22-2024 Pain assessment docu mented as positive - follow-up documented Holly Card BILLET HEATER OPERATOR-[employer]ER Work Phone: Start: 11-22-2024 Arthrocentesis aspir &/inj major jt/bursa w/o us Holly Card BILLET HEATER OPERATOR-[employer]ER Work Phone: Start: 10-29-2024 Plain X-ray of finger C tomas Garcia MD Work Phone: Start: 10-19-2024 Blood pressure outsi de of normal parameters - follow-up not documented Telly Bryan MD Work Phone: Start: 10-19-2024 BMI documented as ab ove normal parameters - follow-up documented Telly Bryan MD Work Phone: Start: 10-19-2024 Current tobacco non- user cad cap copd pv dm Telly Bryan MD Work Phone: Start: 10-19-2024 Documentation of cur rent medications Telly Bryan MD Work Phone: Start: 10-19-2024 Pain assessment docu mented as positive - no follow-up/reason not given Telly Bryan MD Work Phone: Start: 09-29-2024 Plain X-ray of finger C tomas Garcia MD Work Phone: Start: 09-17-2024 Vitamin D, 25-hydrox y measurement Marcos Garcia MD Work Phone: Comment on above: Vitamin D StatusDefi ciency: <20 ng/mL (50nmol/L)Insufficiency: 20-30 ng/mL (50-75 nmol/L)Sufficiency: 30-100 ng/mL (75-250 nmol/L)Toxicity: >100 ng/mL (>250 nmol/L) Start: 09-10-2024 Plain X-ray of finger C tomas Garcia MD Work Phone: Start: 09-02-2024 Plain X-ray of finger C tomas Garcia MD Work Phone: Start: 01-08-2022 Bone &/joint imaging whole body [facility] Provider Start: 10-26-2021 Level iv surg pathol ogy gross&microscopic exam TIO PEREZ Start: 10-26-2021 Blood count complete automated TIO PEREZ Start: 10-26-2021 VERIFY INFORMED CONSENT TIO PEREZ Start: 10-26-2021 End: 10-26-2021 Gluc bld gluc mntr dev cleared fda spec home use Unknown Provider Result Plan of Treatment Date Care Activity Detail Author Start: 12-03-2024 End: 12-03-2024 [employer] Work Phone: Start: 11-19-2024 C-reactive protein [facility] Work Phone: Start: 11-19-2024 [facility] Start: 11-19-2024 Sedimentation rate rbc [facility] Work [facility]: Start: 10-29-2024 Plain X-ray of finger Finger(s) Min 2 Views [facility] Start: 10-29-2024 XR Finger GE 2 Views [facility] Start: 10-13-2024 Radiologic exam knee complete 4/more views [employer] Work Phone: Start: 09-29-2024 Plain X-ray of finger Finger(s) Min 2 Views [facility] Start: 09-29-2024 XR Finger GE 2 Views [facility] Start: 09-10-2024 Plain X-ray of finger Finger(s) Min 2 Views [facility] Start: 09-10-2024 XR Finger GE 2 Views [facility] Start: 09-02-2024 Patient referral [facility] Work Phone: Start: 11-23-2021 Influenza vaccination [facility] Start: 10-26-2021 End: 10-26-2021 Colonoscopy flx dx w/collj spec when pfrmd COLONOSCOPY DIAGNOSTIC Diverticulitis Anemia, blood loss 10/26/2021 8:44 [facility] Start: 10-26-2021 End: 10-26-2021 Egd transoral biopsy single/multiple EGD ESOPHAGOGASTRODUODENOSCOPY Diverticulitis Anemia, blood loss 10/26/2021 8:44 AM [facility] Start: 08-29-2021 COVID-19 VACCINE (5 - Booster for Pfizer series) COVID-19 VACCINE (5 - Booster for Pfizer series) [facility] Start: 03-25-2021 ADVANCE DIRECTIVE DISCUSSION ADVANCE DIRECTIVE DISCUSSION [facility] Start: 06-10-2019 Hemoglobin A1c/Hemoglobin.total in Blood HBA1C [facility] Start: 07-16-2013 Pneumococcal 65+ years Vaccine (2 - PCV) Pneumococcal 65+ years Vaccine (2 - PCV) [facility] Start: 07-16-2013 PNEUMOCOCCAL: 65+ (2 - PCV) PNEUMOCOCCAL: 65+ (2 - PCV) [facility] Start: 2010 BONE DENSITY BONE DENSITY [facility] Start: 2000 Screening for osteoporosis DEXA (modify frequency per FRAX score) [facility] Start: 10-06-1995 Shingles vaccine (1 of 2) Shingles vaccine (1 of 2) [facility] Start: 10-06-1995 SHINGRIX VACCINE (1 of 2) SHINGRIX VACCINE (1 of 2) [facility] Start: 1990 COLOGUARD (FIT-DNA) COLOGUARD (FIT-DNA) [facility] Start: 1990 Colonoscopy COLONOSCOPY [facility] Start: 1990 COLORECTAL CANCER SCREENING COLORECTAL CANCER SCREENING [facility] Start: [address] COLONOGRAPHY [facility] Start: 1990 FECAL OCCULT BLOOD FECAL OCCULT BLOOD [facility] Start: 1990 SIGMOIDOSCOPY SIGMOIDOSCOPY [facility] Start: 1964 DTaP/Tdap/Td vaccine (1 - Tdap) DTaP/Tdap/Td vaccine (1 - Tdap) [facility] Start: 1964 Urine microalbumin profile DTAP,TDAP,TD (1 - Tdap) [facility] Start: 10-06-1963 ANNUAL PCP TEAM CHRONIC DISEASE VISIT ANNUAL PCP TEAM CHRONIC DISEASE VISIT [facility] Start: 10-06-1963 BP CONTROLLED (<130/80) BP CONTROLLED (<130/80) [facility] Start: 10-06-1963 Hepatitis B surface antibody level LDL CHOLESTEROL [facility] Start: 10-06-1963 HEPATITIS C SCREENING HEPATITIS C SCREENING [facility] Start: 10-06-1963 Hepatitis C screening Hepatitis C screen [facility] Start: 1957 Depression Screen Depression Screen [facility] Start: 10-06-1955 3 comp foot exam completed DIABETIC FOOT EXAM [facility] Start: 10-06-1955 Hepatitis B screening URINE ALBUMIN:CREATININE RATIO [facility] Start: 10-06-1955 Hepatitis C antibody, confirmatory test DILATED RETINAL EXAM [facility] Start: 10-06-1955 Lipid panel Lipids [facility] Start: 04-07-1946 COVID-19 Vaccine (#1) COVID-19 Vaccine (#1) [employer] Start: 1945 Annual Wellness Visit (AWV) Annual Wellness Visit (AWV) [employer] End: 10-26-2021 Blood glucose - POCT Blood glucose - POCT Point o f Care Testing Routine One Time for 1 Occurrences starting 10/26/2021 until 10/26/2021 [employer] Work Phone: Comment on above: One Time for 1 Occurrences starting 06/2021 until 10/26/2021 Patient referral [facility] Work Phone: Surgical Pathology Surgical Path ology Lab Routine Diverticulitis Anemia, blood loss Release Upon Ordering for 1 Occurrences starting 10/26/2021 [employer] Work Phone: Comment on above: Release Upon Ordering for 1 Occurrences starting 10/26/2021 Immunizations Immunization Date Immunization Notes Care Provider Fa cility 12-17-2018 influenza, high dose seasonal, preservative-free Justin Cheatham MD Work Phone: [facility] Work Phone: 07-16-2012 pneumococcal polysaccharide vaccine, 23 valent Justin Cheatham MD Work Phone: [facility] Payers Date Payer Category Payer Self-pay 2017 Private Health Insurance [facility] AARP SUPPLEMENT [id number] 2017-Present [phone] [address] [place] [address] Indemnity [id number] 2017 Private Health Insurance [id number] 2017 Private Health Insurance [facility] AARP SUPPLEMENT [id number] 2017-Present [phone] [address] [place] [address] Indemnity [id number] 2010 Medicare MEDICARE MEDICAR E A AND B [id number] 2010-Present [phone] [place] [address] Medicare [id number] 2010 Medicare [id number] 2010 Medicare MEDICARE MEDICAR E A AND B [id number] 2010-Present [phone] [place] [address] Medicare [id number] 1945 Unknown [id number] .204 Unknown [id number] .462 Unknown [id number] [id number] .462 Unknown [id number] [id number] .462 Unknown [id number] 2.16.840.1.311170.3.579.2 .462 Unknown [id number] 2.16.840.1.341915.3.579.2 .462 Unknown [id number] 2.16.840.1.988476.3.579.2 .462 Unknown [id number] 2.16.840.1.332541.3.579.2 .462 Unknown [id number] 2.16.840.1.124126.3.579.2 .462 Unknown [id number] 2.16.840.1.755135.3.579.2 .462 Unknown [id number] 2.16.840.1.150214.3.579.2 .462 Unknown [id number] 2.16.840.1.374498.3.579.2 .462 Unknown [id number] 2.16.840.1.162145.3.579.2 .462 Unknown [id number] [id number] .462 Unknown [id number] .462 Social History Date Type Detail Facility Start: 10-25-2021 End: 09-02-2024 Tobacco smoking status NHIS Never smoked tobacco [facility] Work Phone: Start: 02-09-2020 Alcohol intake Current drinke r of alcohol (finding) [facility] Start: 01-29-2020 History SDOH Alcohol Frequency 3 [facility] Start: 01-29-2020 History SDOH Alcohol Std Drinks 1 [facility] Start: 1945 Sex Assigned At Not on file [facility] Start: 08-18-2021 End: 12-26-2021 Exposure to SARS-CoV-2 (event) Not sure [facility] Start: 12-10-2018 End: 10-25-2021 Tobacco use and exposure Smokeless tobacco non-user [employer] Phone: Start: 10-25-2021 Alcohol intake Lifetime non-d ander (finding) [employer] Phone: Start: 1945 Sex Assigned At Female [facility] Start: 10-13-2024 End: 12-03-2024 social history reviewed E&M Done [facility] Medical Equipment Procedure Code Equipment Code Equipment Origin al Text Equipment Identifier Dates Cement Simplex P Bone Radiopaque Half Dose Sterile - [id number] Start: 12-16-2018 0---Raphael Bn Endur Sst 40gm Hvisc - [id number] Start: 07-15-2012 Raphael Bn Smplx Hv Fd - [id number] Start: 09-07-2014 [id number] 9674-Wts-Ny-A-Kind Implant - [id number] Start: 07-15-2012 Comment on above: Description: Tibial tray rotating platform 0---Ins Tib 2 12.5mm Kn Uhmwpe Rp - [id number] Start: 07-15-2012 0---Comp Fem 2 57e23df Lt Kn Cr - [id number] Start: 07-15-2012 Ins Tib 2.5 10mm Kn Uhmwpe Rp - [id number] Start: 09-07-2014 Comment on above: Description: TIBIAL INSERT ROTATING PLATFORM , CURVED Comp Fem 2.5 [id number] Rt Kn Cr - [id number] Start: 09-07-2014 Comment on above: Description: SIGMA F EMORAL CRUCIATE RETAINING CEMENTED SIZE 2.5 RIGHT Comp Tibtry 2 Kn Raphael Lcs - [id number] Start: 09-07-2014 Comment on above: Description: TIBIAL TRAY ROTATING PLATFORM MBT CONE , SIZE 2 CEMENTED Dome Pfc Sigma 32mm Xs Oval Uhmwpe Patellar 3 Peg Knee - [id number] Start: 12-16-2018 Joint-11/26/2012 [id number] Start: 11-26-2012 Functional Status Date Assessment Result Facility 12-03-2024 Functional Status without [facility] Work Phone: 12-03-2024 dependent [facility] Work Phone: 11-19-2024 Functional Status right [facility] Work Phone: 11-19-2024 dependent [facility] Work Phone: Clinical Notes 12-16-2018 to 09-29-2024 Note Date & Type Note Facility 09-29-2024 Evaluation note Diagnosis Onset Date Resolution Fracture of distal phalanx of right index finger acute September 29, 2024 9 :19am Subungual hematoma of finger of right hand acute September 29, 025 9:19am Fracture of distal phalanx of right index finger acute October 29, 2024 9:12am [facility] Work Phone: 1(411) 461-428806-11-2025 Evaluation note* Diagnosis Onset Date Resolution Status Admit Date Fracture of distal phalanx o f right index finger acute September 02 1:11pm [facility] Work Phone: 1(928) 606-998306-11-2025 Evaluation note* Diagnosis Onset Date Resolution Status Admit Date Fracture of distal phalanx o f right index finger acute September 02 1:11pm Fracture of distal phalanx o f right index finger acute September 03 9:20am Subungual hematoma of finger of right hand acute September 03, 2024 9:20am [facility] Work Phone: 1(788) 863-240606-11-2025 Evaluation note* Diagnosis Onset Date Resolution Status Admit Date Fracture of distal phalanx o f right index finger acute September 02 1:11pm Fracture of distal phalanx o f right index finger acute September 03 9:20am Subungual hematoma of finger of right hand acute September 03, 2024 9:20am Fracture of distal phalanx o f right index finger acute September 10 10:15am Subungual hematoma of finger of right hand acute September 10, 2024 10:15am [facility] Work Phone: 1(295) 176-990406-11-2025 Evaluation note* Diagnosis Onset Date Resolution Status Admit Date Fracture of distal phalanx o f right index finger acute September 02 1:11pm Fracture of distal phalanx o f right index finger acute September 03 9:20am Subungual hematoma of finger of right hand acute September 03, 2024 9:20am Fracture of distal phalanx o f right index finger acute September 10 10:15am Subungual hematoma of finger of right hand acute September 10, 2024 10:15am Fracture of distal phalanx o f right index finger acute September 29 9:19am Subungual hematoma of finger of right hand acute September 29, 2024 9 :19am [facility] Work Phone: 1(689) 524-103806-11-2025 Evaluation note* Diagnosis Onset Date Resolution Status Admit Date Fracture of distal phalanx o f right index finger acute September 02 1:11pm Fracture of distal phalanx o f right index finger acute September 03 9:20am Subungual hematoma of finger of right hand acute September 03, 2024 9:20am Fracture of distal phalanx o f right index finger acute September 10 10:15am Subungual hematoma of finger of right hand acute September 10, 2024 10:15am Fracture of distal phalanx o f right index finger acute September 29 9:19am Subungual hematoma of finger of right hand acute September 29, 2024 9 :19am Fracture of distal phalanx o f right index finger acute October 29, 025 9:12am [facility] Work Phone: 1(322) 803-509206-11-2025 Radiology Diagnostic study note [facility] [address] [place] [address] Finger(s) Min 2 Views MR#: [id number] Acct: [id number] Name: ROJELIO ARAMBULA Rep #: [id number] : 1945 F [id number] From: Isidoro Vidales MD PCP: Dr. Marcos Garcia MD Status: REG CL I Study:Finger(s) Min 2 Views Date of Exam: 09/02/24 Exam# [id number] Ordering Dr: [facility] PROCEDURE: FINGER(S) [...] distal interphalangeal joint is noted. Reading Location: [address] CC: Dr. Marcos Garcia MD; RADHA Tomlinson ~ Web Ui Software Engineer: Signed [facility]10-17-2022 History of Present illness Narrative* Mariaelena [...] mdp PATIENT DISCHARGED TO: Ambulatory patient, left AL department area. A Diagnostic radioactive procedure has taken place, with no further precautions necessary other than routine body substance precautions. More information regarding radiation safety can be found usingthis link: [email or web address] SIGNATURE: RT Emma(Jude) PATIENT NAME: Rojelio Arambula DATE: January 08, 2022 TIME: 8:43 AM PAGER/CONTACT #: documented in this encounter[facility] Hospital Discharge instructions* Discharge Instructions* Donna Worrell [...] Where can you learn more? Go to [email or web address] and sign in to your [employer] account. Enter E264 in the Search Health Information box to learn more about Colonoscopy: What to Expect at Home. If you do not have an account, please click on the Sign Up Now link. Current as of: November 30, 2020 Content Version: 13.3 [employer]. Care instructions adapted under license by [employer]. If you have questions about a medical condition or this instruction, always ask your healthcare professional. [employer] disclaims any warranty or liability for your [...] the day after the test, use an dofa-kfg-itkljan spray to numb your throat. Follow-up care [...] Where can you learn more? Go to [email or web address] and sign in to your [employer] account. Enter J454 in the Search Health Information box to learn more about Upper GI Endoscopy: What to Expect at Home. If you do not have an account, please click on the Sign Up Now link. Current as of: November 30, 2020 Content Version: 13.3 [employer]. Care instructions adapted under license by [employer]. If you have questions about a medical condition or this instruction, always ask your healthcare professional. [employer] disclaims any warranty or liability for your use of this information. * Attachments The following attachments cannot be sent through Care Everywhere. * EGD (Upper Endoscopy): Post-op (Croatian) documented in this encounterBON [employer] Work Phone: 1(909) 443-768608-04-2022 History of Present illness Narrative* Jacque Wade RN - 10/26/2021 8:44 AM EDT SBAR form completed. Placed on chart. Chart with patient in transit to hold room. * Venessa Shaw RN - 10/25/2021 11:07 AM EDT Images from the original note were not included. [facility] PRE OP INSTRUCTIONS FOR Rojelio Arambula [...] makeup (including no eye makeup) or nail romanian on your fingers or toes. DO NOT wear any jewelry or piercings on day of surgery. All body piercing jewelry must be removed. Shower the night before surgery with __x_Antibacterial soap /VONDA WIPES TOTAL JOINT REPLACEMENT/HYSTERECTOMY PATIENTS ONLY---Remember to bring Blood Bank bracelet to the hospital on the day of surgery. If you have a Living Will and Durable Power of Gas Line Installer Supervisor for Healthcare, please bring in a copy. [...] safety of all patients. Other Please call LOG PEELER if you have any further questions. Pre Admit Testing [phone] [employer] [phone] documented in this encounterBON [employer] Work Phone: 1(393) 386-895006-06-2022 NoteHNO ID: [id number] Author: Justin Cheatham MD Service: ? Author Type: Physician Type: Progress Notes Filed: 08/28/2021 1:46 PM Note Text: Respiratory Lawrence Subjective Rojelio Arambula is a 75 year [...] this visit. Physical Exam (more content not included)...[facility]06-06-[facility] Instructions* Patient Instructions* Justin Cheatham MD - 08/28/2021 1:[address] of chest in 03/2022 And virtual visit in 03/2022 documented in this encounterTri[facility]06-[facility] History of Present illness Narrative* Justin Cheatham MD - 08/28/2021 1:06 PM EDT Images from the original note were not included. Respiratory Lawrence Subjective Rojelio Arambula is a 75 year [...] new questions or concerns. documented in this encounterTri[facility]01-10-2022 NoteHNO ID: [id number] Author: Justin Cheatham MD Service: ? Author [...] providing this service. The patient or patient?s primary care sales representative consented to this telephone encounter. I reviewed all pertinent data. SIGNATURE: Liudmila Cheatham MD PATIENT NAME: Rojelio Arambula DATE: April 03, 2021 TIME: 1:16 [facility]01-06-2022 NoteHNO ID: [id number] Author: DONNY Barriga Service: ? Author Type: Retail Specialist Type: Progress Notes Filed: 03/30/2021 2:07 PM Note Text: PULM FUNCTION SMARTBLOCK: Provider: Justin Cheatham MD Spirometry w/BD: 1 DLCO: 1 LV - Box: 1 Oximetry - Ambulation: 1 Exhaled Nitric Oxide: 1 System: [id number]01-[facility]22 NoteHNO ID: [id number] Author: DONNY Barriga Service: ? Author Type: Retail Specialist Type: Procedures Filed: 03/30/2021 2:07 PM Note [...] 2021 TIME: 2:06 PM Comment: (normal pace=fast pace)[facility]01-06-2022 NoteHNO ID: [id number] Author: DONNY Barriga Service: ? Author Type: Retail Specialist Type: Procedures Filed: 03/30/2021 1:27 PM Note [...] Arambula DATE: March 30, 2021 TIME: 1:27 [facility]01-06-2022 NoteHNO ID: [id number] Author: Alexandra Whiteside Service: ? Author Type: [...] BY: Alexandra Whiteside March 30, 2021 10:00 [facility]12-06-2021 NoteHNO ID: [id number] Author: Justin Cheatham MD Service: ? Author Type: Physician Type: Progress Notes Filed: 02/27/2021 4:31 PM Note Text: Respiratory Lawrence Subjective Rojelio Arambula is a 75 year [...] immunocompromised state. Neurological: Negative (more content not included)...[facility] 12-16-2018 History of Past illness Narrative* Problem Noted Date Resolved Date S/P TKR (total knee replacement) 12/16/2018 12/17/2018 Arthritis of left knee 07/15/2012 3 documented as of this encounter (statuses as of 08/28/2021) [facility] History of Past illness Narrative* Problem Noted Date Resolved Date S/P TKR (total knee replacement) 12/16/2018 12/17/2018 Arthritis of left knee 07/15/2012 3 documented as of this encounter (statuses as of 01/09/2022) [facility] History of Past illness Narrative* Problem Noted Date Resolved Date S/P TKR (total knee replacement) 12/16/2018 12/17/2018 Arthritis of left knee 07/15/2012 3 documented as of this encounter (statuses as of 01/09/2022) [facility]* Diagnosis Lung nodules- Primary Other nonspecific abnormal finding of lung field COVID-19 Nonsmoker Other specified conditions influencing health status documented in this encounter [facility]* Diagnosis Diverticulitis Diverticulitis of colon (without mention of hemorrhage) Anemia, blood loss Iron deficiency anemia secondary to blood loss (chronic) documented in this encounter [facility] Work Phone: evaluation note* Diagnosis Onset Date Resolution Status Admit Date Fracture of distal phalanx o f right index finger acute September 02 1:11pm [facility] Work Phone: Reason for referral (narrative)No reason for referral information availableWChillicothe Hospital Work Phone: Summary Purpose Family History Family Member Condition Father Diabetes - non-insul in dependent Mother Heart disease Mother Cancer Father Mother Family Member Condition Father Diabetes - non-insul in dependent Mother Heart disease Mother Cancer Father Mother Family Member Condition Father Diabetes - non-insul in dependent Mother Heart disease Mother Cancer Father Mother Advance Directives Documents on File Type Date Recorded Patient Air Technician Expl anation Advance Directive(s) 02/08/2020 9:37 AM Advance Directive(s) 01/28/2020 9:57 AM Advance Directive(s) 09/23/2019 9:08 AM Procedure Findings Note HNO ID: [id number] Author: Deanna Noe Service: Anesthesiology Author Type: [...] (more content not included)... Note HNO ID: [id number] Author: Brigido Parrish Service: Orthopaedic Surgery Author Type: Physician Type: Brief Op Note Filed: 10/06/2019 1:07 PM Note Text: BRIEF OPERATIVE / PROCEDURE NOTE LOG ID: [id number] SURGERY/PROCEDURE DATE: 10/06/2019 INCISION/PROCEDURE START TIME: 11:47 AM INCISION CLOSE/PROCEDURE END TIME: 12:09 PM SURGEON(S)/PROCEDURALIST(S) AND WAREHOUSE OPERATIONS MANAGER(S): Surgeon(s) and Role: * Faizan Prarish - Primary Physician Nutrition Services Associate: Maximus Eastman (Pa) SURGERY/PROCEDURE(S): right shoulder scope ANESTHESIA: General FINDINGS: impingement ESTIMATED BLOOD LOSS: 0 ml SPECIMENS: None COMPLICATIONS: None PRE-OP/PRE-PROCEDURE DIAGNOSIS: r shoulder impingement POST-OP/POST-PROCEDURE DIAGNOSIS: Same as Preop SIGNATURE: Faizan Parrish MD PATIENT NAME: Rojelio Arambula DATE: October 06, 2019 TIME: 1:06 PM PAGER/CONTACT #: Note HNO ID: [id number] Author: Deanna Noe Service: ? Author Type: Anesthesiologist Type: Anesthesia Procedure Notes Filed: 02/09/2020 10:52 AM Note Text: ANESTHESIOLOGY PROCEDURE NOTE Peripheral Nerve Block General Information Procedure Start Time/Medication Administration: 02/09/2020 10:18 AM Procedure End time: 02/09/2020 10:28 AM Patient location during procedure: pre-op Timeout Performed Pre- procedure: timeout performed Consent Obtained: Yes Patient identity confirmed: arm band, patient and care rn team leader Reason for block: post-op pain management/at surgeon's [...] (more content not included)... Note HNO ID: [id number] Author: Basia Duggan Service: ? Author Type: Nurse Sock Liner Type: Anesthesia Procedure Notes Filed: 02/09/2020 12:11 PM Note Text: ANESTHESIOLOGY PROCEDURE NOTE Airway General Information Procedure Start Time/Medication Administration: 02/09/2020 11:37 AM Patient location during procedure: OR Timeout Performed Pre-procedure: timeout performed Consent Obtained: Yes Patient identity confirmed: arm band, care rn team leader and patient Staffing FLAG MAKER: Deana Bailon Performed by: SB Indications and [...] (more content not included)... Note HNO ID: [id number] Author: Marine Bailon Service: ? Author Type: Nurse Sock Liner Type: Anesthesia Procedure Notes Filed: 02/09/2020 1:38 PM Note Text: ANESTHESIOLOGY PROCEDURE NOTE PIV General Information Procedure Start Time/Medication Administration: 02/09/2020 1:15 PM Patient Location: OR Staffing FLAG MAKER: Deana Bailon Preparation Sterility Preparation: hand hygiene performed prior to procedure, surgical cap used, mask used Site Prep: ETOH Procedure Details Indication: need for IV access Needle Size/Type: 20 gauge angiocath Orientation: Left Location: Hand Imaging Guidance Used: No SIGNATURE: Deana Bailon APRN.CRNA PATIENT NAME: Rojelio Arambula DATE: February 09, 2020 TIME: 1:38 PM CSN: [id number] Chief Complaint and Reason for Visit Chief [...] HAND September 10, 2024 10:1 5am Room September 10, 2024 10:3 1am Reason for Visit Admit Date Fracture of distal phalanx of right inde x finger September 02, 2024 1:11pm Fracture of distal phalanx of right inde x finger September 03, 2024 9:20am Subungual hematoma of finger of right [place] September 03, 2024 9:20am Fracture of distal phalanx of right inde x finger September 10, 2024 10:15am Subungual hematoma of finger of right [place] September 10, 2024 10:15am Chief Complaint Admit Date R HAND/INDEX FINGER/PAIN/INJURY August 1:11pm finger injury- RIGHT HAND September 02 1:24pm RIGHT HAND/FIRST FINGER September 03, 2024 9:20am RIGHT HAND September 10, 2024 10:1 5am Room 6 September 10, 2024 10:3 1am RIGHT HAND September 29, 2024 9:19a m Room 2 September 29, 2024 9:26a m Chief Complaint Admit Date R HAND/INDEX FINGER/PAIN/INJURY August 1:11pm finger injury- RIGHT HAND September 02 1:24pm RIGHT HAND/FIRST FINGER September 03, 2024 9:20am RIGHT HAND September 10, 2024 10:1 5am Room 6 September 10, 2024 10:3 1am RIGHT HAND September 29, 2024 9:19a m Room 2 September 29, 2024 9:26a m RIGHT HAND October 29, 2024 9:1 2am Room 3 October 29, 2024 9:2 4am Reason for Visit Admit Date Fracture of distal phalanx of right inde x finger September 02, 2024 1:11pm Fracture of distal phalanx of right inde x finger September 03, 2024 9:20am Subungual hematoma of finger of right [place] nd September 03, 2024 9:20am Fracture of distal phalanx of right inde x finger September 10, 2024 10:15am Subungual hematoma of finger of right [place] nd September 10, 2024 10:15am Fracture of distal phalanx of right inde x finger September 29, 2024 9:19am Subungual hematoma of finger of right [place] nd September 29, 2024 9:19am Reason for Visit Admit Date Fracture of distal phalanx of right inde x finger September 02, 2024 1:11pm Fracture of distal phalanx of right inde x finger September 03, 2024 9:20am Subungual hematoma of finger of right [place] nd September 03, 2024 9:20am Fracture of distal phalanx of right inde x finger September 10, 2024 10:15am Subungual hematoma of finger of right [place] September 10, 2024 10:15am Fracture of distal phalanx of right inde x finger September 29, 2024 9:19am Subungual hematoma of finger of right [place] September 29, 2024 9:19am Fracture of distal phalanx of right inde x finger October 29, 2024 9:12am Chief Complaint Admit Date RIGHT HAND September 29, 2024 9:19a m Room 2 September 29, 2024 9:26a m RIGHT HAND October 29, 2024 9:1 2am Room 3 October 29, 2024 9:2 4am POST KAREN December 24, 2024 10 :56am Reason for Visit Admit Date Fracture of distal phalanx of right inde x finger September 29, 2024 9:19am Subungual hematoma of finger of right [place] September 29, 2024 9:19am Fracture of distal phalanx of right inde x finger October 29, 2024 9:12am Additional Source Comments INFORMATION SOURCE (unrecogn ized section and content) DATE CREATED AUTHOR 10/14/2019 [facility] DATE CREATED AUTHOR AUTHOR'S ORGANIZ ATION 03/06/2020 [facility] DATE CREATED AUTHOR AUTHOR'S ORGANIZ ATION 11/15/2020 [facility] DATE CREATED AUTHOR AUTHOR'S ORGANIZ ATION 11/03/2021 [facility] DATE CREATED AUTHOR AUTHOR'S ORGANIZ ATION 12/24/2021 [facility] DATE CREATED AUTHOR AUTHOR'S ORGANIZ ATION 01/08/2025 [facility] Source Comments (unrecognize d section and content) In the event this informatio n is protected by the Federal Confidentiality of Alcohol and Drug Abuse Patient Records regulations: The Federal rules restrict any use of the information to criminally investigate or prosecute any alcohol or drug abuse patient.[facility] the event this information is protected by the Federal Confidentiality of Alcohol and Drug Abuse Patient Records regulations: The Federal rules restrict any use of the information to criminally investigate or prosecute any alcohol or drug abuse patient.[facility] the event this information is protected by the Federal Confidentiality of Alcohol and Drug Abuse Patient Records regulations: The Federal rules restrict any use of the information to criminally investigate or prosecute any alcohol or drug abuse patient.[facility] Reason for Visit (unrecogniz ed section and content) Reason Comments Follow Up Specialty Diagnoses / Procedures Referred By Trung t Referred To Contact Diagnoses Diverticulitis Anemia, blood loss Diverticulitis [K57.92] Anemia, blood loss [D50.0] Procedures [place] COLONOSCOPY FLX DX W/COLLJ SPEC WHEN PFRMD COLONOSCOPY (NEEDS SIF SCOPE) Ang Adames MD [address] [place] [address] [facility] [id number] [place] [address] Referral ID Status Reason Start Date Expiration Date Visits Re quested Visits Authorized [id number] 1 1 Reason Comments Radiology [place] Care Teams (unrecognized sec tion and content) Flag Maker Relationship Specialty Start Date End Date Tio Perez MD PCP - General Internal Medicine 11/17/18 Flag Maker Relationship Specialty Start Date End Date Tio Perez MD [address] [facility], [address] [place], [place] [id number] PCP - General Internal Medicine 09/07/18 Flag Maker Relationship Specialty Start Date End Date Tio Perez MD PCP - General Internal Medicine 11/17/18 Flag Maker Relationship Specialty Start Date End Date Tio Perez MD PCP - General Internal Medicine 11/17/18 Team Status: Active Member Role Status Abbe Garcia MD Primary Care Provider Active Team Status: Inactive Member Role Status Abbe Garcia MD Primary Care Provider Active St art: September 02, 2024 End: September 02, 2024 Marcos Garcia MD Referring Provider Active Start : September 02, 2024 End: September 02, 2024 Rosas GARCIA PA Attending Provider Active Start: September 02, 2024 End: September 02, 2024 Team Status: Active Member Role Status Abbe Garcia MD Primary Care Provider Active St art: September 02, 2024 Rosas GARCIA PA Attending Provider Active Start: September 02, 2024 Rosas GARCIA PA Referring Provider Active Start: September 02, 2024 [...] 2024 End: September 10, 2024 Team Status: Active Member Role/Relationship Status Abbe Garcia MD Primary Care Provider Active Team Status: Inactive Member Role/Relationship Status Abbe Garcia MD Primary Care Provider Active St art: September 02, 2024 End: September 02, 2024 Marcos Garcia MD Referring Provider Active Start : September 02, 2024 End: September 02, 2024 Rosas GARCIA PA Attending Provider Active Start: September 02, 2024 End: September 02, 2024 Team Status: Inactive Member Role/Relationship Status Dates Marcos Garcia MD Primary Care Provider Active St art: September 02, 2024 End: September 02, 2024 RADHA Bynum Attending Provider Active Start: September 02, 2024 End: September 02, 2024 RADHA Bynum Referring Provider Active Start: September 02, 2024 End: September 02, 2024 Team Status: Inactive Member Role/Relationship Status Dates Marcos Garcia MD Primary Care Provider Active St art: September 03, 2024 End: September 03, 2024 Marcos Garcia MD Referring Provider Active Start : September 03, 2024 End: September 03, 2024 ALINE Sethi Attending Provider Active Start: September 03, 2024 End: September 03, 2024 Team Status: Inactive Member Role/Relationship Status Abbe Garcia MD Primary Care Provider Active St art: September 10, 2024 End: September 10, 2024 Marcos Garcia MD Referring Provider Active Start : September 10, 2024 End: September 10, 2024 ALINE Sethi Attending Provider Active Start: September 10, 2024 End: September 10, 2024 Team Status: Inactive Member Role/Relationship Status Abbe Garcia MD Primary Care Provider Active St art: September 10, 2024 End: September 10, 2024 Dr. Justin Romero MD Attending Provider Active S tart: September 10, 2024 End: September 10, 2024 Team Status: Inactive Member Role/Relationship Status Abbe Garcia MD Primary Care Provider Active St art: September 17, 2024 End: September 17, 2024 Marcos Garcia MD Attending Provider Active Start : September 17, 2024 End: September 17, 2024 Marcos Garcia MD Referring Provider Active Start : September 17, 2024 End: September 17, 2024 Team Status: Active Member Role/Relationship Status Abbe Garcia MD Primary Care Provider Active St art: September 29, 2024 Marcos Garcia MD Referring Provider Active Start : September 29, 2024 ALINE Sethi Attending Provider Active Start: September 29, 2024 Team Status: Inactive Member Role/Relationship Status Abbe Garcia MD Primary Care Provider Active St art: September 29, 2024 End: September 29, 2024 Dr. Justin Romero MD Attending Provider Active S tart: September 29, 2024 End: September 29, 2024 Team Status: Inactive Member Role/Relationship Status Abbe Garcia MD Primary Care Provider Active St art: September 29, 2024 End: September 29, 2024 Marcos Garcia MD Referring Provider Active Start : September 29, 2024 End: September 29, 2024 ALINE Sethi Attending Provider Active Start: September 29, 2024 End: September 29, 2024 Team Status: Active Member Role/Relationship Status Abbe Garcia MD Primary Care Provider Active St art: October 29, 2024 Marcos Garcia MD Referring Provider Active Start : October 29, 2024 ALINE Sethi Attending Provider Active Start: October 29, 2024 Team Status: Inactive Member Role/Relationship Status Abbe Garcia MD Primary Care Provider Active St art: October 29, 2024 End: October 29, 2024 Dr. Justin Romero MD Attending Provider Active S tart: October 29, 2024 End: October 29, 2024 Team Status: Inactive Member Role/Relationship Status Abbe Garcia MD Primary Care Provider Active St art: October 29, 2024 End: October 29, 2024 Marcos Garcia MD Referring Provider Active Start : October 29, 2024 End: October 29, 2024 ALINE Sethi Attending Provider Active Start: October 29, 2024 End: October 29, 2024 Team Status: Inactive Member Role/Relationship Status Abbe Garcia MD Primary Care Provider Active St art: November 20, 2024 End: November 20, 2024 ALINE Tang Attending Provider Active Star t: November 20, 2024 End: November 20, 2024 ALINE Tang Referring Provider Active Star t: November 20, 2024 End: November 20, 2024 Team Status: Active Member Role/Relationship Status Abbe Garcia MD Primary care physician Active Team Status: Inactive Member Role/Relationship Status Abbe Garcia MD Primary care physician Active S tart: September 29, 2024 End: September 29, 2024 Marcos Garcia MD Referring Provider Active Start : September 29, 2024 End: September 29, 2024 ALINE Sethi Attending physician Active Start: September 29, 2024 End: September 29, 2024 Team Status: Inactive Member Role/Relationship Status Abbe Garcia MD Primary care physician Active S tart: September 29, 2024 End: September 29, 2024 Dr. Justin Romero MD Attending physician Active Start: September 29, 2024 End: September 29, 2024 Team Status: Inactive Member Role/Relationship Status Abbe Garcia MD Primary care physician Active S tart: October 29, 2024 End: October 29, 2024 Marcos Garcia MD Referring Provider Active Start : October 29, 2024 End: October 29, 2024 ALINE Sethi Attending physician Active Start: October 29, 2024 End: October 29, 2024 Team Status: Inactive Member Role/Relationship Status Abbe Garcia MD Primary care physician Active S tart: October 29, 2024 End: October 29, 2024 Dr. Justin Romero MD Attending physician Active Start: October 29, 2024 End: October 29, 2024 Team Status: Inactive Member Role/Relationship Status Abbe Garcia MD Primary care physician Active S tart: November 20, 2024 End: November 20, 2024 ALINE Tang Attending physician Active Sta rt: November 20, 2024 End: November 20, 2024 ALINE Tang Referring Provider Active Star t: November 20, 2024 End: November 20, 2024 Team Status: Inactive Member Role/Relationship Status Abbe Garcia MD Primary care physician Active S tart: December 24, 2024 End: December 24, 2024 Marcos Garcia MD Attending physician Active Star t: December 24, 2024 End: December 24, 2024 Marcos Garcia MD Referring Provider Active Start : December 24, 2024 End: December 24, 2024 Continuous Active and Recently Administ ered [...] may be documented in an alternate section No Information AvailableGoals may be documented in an alternate sectionGoals may be documented in an alternate section No Information AvailableGoals may be documented in an alternate section No Information AvailableGoals may be documented in an alternate section [...] BE BASED ON THE PRIMARY CLINICAL RECORDS. [facility]. provides no warranty or guarantee of the accuracy or completeness of information in this document.
== END | disposition home or self-care (01) ==
PROVIDERS: PCP Family Medicine; Referring Provider Family Medicine; Visit Provider Family Medicine
DX: Z85.3 Personal history of malignant neoplasm of breast (principal)
CPT/HCPCS: 36415